=== PATIENT | female | born 1965 | race African-American/Black ===

== ENCOUNTER 2022-05-16 14:19 | Emergency (ER) | payer OTHER ==
--- OUTSIDE RECORDS SUMMARY | 2022-05-16 14:38 | XMS REPORT | Continuity of Care Document ---
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 2.5 mg, Uni vers (PROVENTIL) 04-13 Inhalation i ty of 2.5 mg /3 07:30: 07:39 , ONCE, 1 [place] mL (0.083 00 :00 dose, On Medica l %) [facility] nebulizer 02/11/22 at solution 0230, STAT 2.5 mg doxycycline 2021-04 Yes [id number] 100mg Take 1 [facility] hyclate 100 -03 capsule by it y of mg capsule 00:00: mouth in [place] 00 the Medical morning Branch and 1 capsule in the evening. doxycycline 2021-04 Yes [id number] 100mg Take 1 [facility] hyclate 100 1-03 capsule by it y of mg capsule 00:00: mouth in [place] 00 the Medical morning Branch and 1 capsule in the evening. doxycycline 2021-04 Yes [id number] 100mg Take 1 [facility] hyclate 100 -03 capsule by it y of mg capsule 00:00: mouth in [place] 00 the Medical morning Branch and 1 capsule in the evening. doxycycline 2021-04- No [id number] 100mg Take 1 [facility] hyclate 100 -03 05-13 capsule by i ty of mg capsule 00:00: 00:00 mouth in [place] 00 :00 the Medical morning Branch and 1 capsule in the evening. predniSONE 2021-04- No [id number] 40mg Take 2 [facility] 20 mg 04-13 tablets by ity of tablet 00:00: 05:59 mouth in [place] 00 :00 the Medical morning Branch for 5 days. busPIRone 2021-04 Yes [id number] 10mg Take 1 Un valentina 10 mg 0-26 tablet by ity of tablet 00:00: mouth in [place] 00 the Medical morning Branch and 1 tablet in the evening. benzonatate 2021-04 Yes [id number] 100mg Take 1 [facility] 100 mg 0-26 capsule by ity of capsule 00:00: mouth [place] 00 every 8 Medical (eight) Branch hours as needed for Cough. busPIRone 2021-04 Yes [id number] 10mg Take 1 Un valentina 10 mg 0-26 tablet by ity of tablet 00:00: mouth in [place] 00 the Medical morning Branch and 1 tablet in the evening. benzonatate 2021-04 Yes [id number] 100mg Take 1 [facility] 100 mg 0-26 capsule by ity of capsule 00:00: mouth [place] 00 every 8 Medical (eight) Branch hours as needed for Cough. busPIRone 2021-04 Yes [id number] 10mg Take 1 Un [place] 10 mg 0-26 tablet by ity of tablet 00:00: mouth in [place] 00 the Medical morning Branch and 1 tablet in the evening. benzonatate 2021-04 Yes [id number] 100mg Take 1 [facility] 100 mg 0-26 capsule by ity of capsule 00:00: mouth [place] 00 every 8 Medical (eight) Branch hours as needed for Cough. busPIRone 2021-04 Yes [id number] 10mg Take 1 Un val[place]ina 10 mg 0-26 tablet by ity of tablet 00:00: mouth in [place] 00 the Medical morning Branch and 1 tablet in the evening. benzonatate 2021-04 Yes [id number] 100mg Take 1 [facility] 100 mg 0-26 capsule by ity of capsule 00:00: mouth [place] 00 every 8 Medical (eight) Branch hours as needed for Cough. busPIRone 2021-04 Yes [id number] 10mg Take 1 Un val[place]ina 10 mg 0-26 tablet by ity of tablet 00:00: mouth in [place] 00 the Medical morning Branch and 1 tablet in the evening. benzonatate 2021-04 Yes [id number] 100mg Take 1 [facility] 100 mg 0-26 capsule by ity of capsule 00:00: mouth [place] 00 every 8 Medical (eight) Branch hours as needed for Cough. busPIRone 2021-04 Yes [id number] 10mg Take 1 Un val[place] 10 mg 0-26 tablet by ity of tablet 00:00: mouth in [place] 00 the Medical morning Branch and 1 tablet in the evening. benzonatate 2021-04 Yes [id number] 100mg Take 1 [facility] 100 mg 0-26 capsule by ity of capsule 00:00: mouth [place] 00 every 8 Medical (eight) Branch hours as needed for Cough. busPIRone 2021-04 Yes [id number] 10mg Take 1 Un val[place]ina 10 mg 0-26 tablet by ity of tablet 00:00: mouth in [place] 00 the Medical morning Branch and 1 tablet in the evening. benzonatate 2021-04 Yes [id number] 100mg Take 1 [facility] 100 mg 0-26 capsule by ity of capsule 00:00: mouth [place] 00 every 8 Medical (eight) Branch hours as needed for Cough. busPIRone 2021-04 Yes [id number] 10mg Take 1 Un val[place] 10 mg 0-26 tablet by ity of tablet 00:00: mouth in [place] 00 the Medical morning Branch and 1 tablet in the evening. benzonatate 2021-04 Yes [id number] 100mg Take 1 [facility] 100 mg 0-26 capsule by ity of capsule 00:00: mouth [place] 00 every 8 Medical (eight) Branch hours as needed for Cough. busPIRone 2021-04 Yes [id number] 10mg Take 1 Un val[place] 10 mg 0-26 tablet by ity of tablet 00:00: mouth in [place] 00 the Medical morning Branch and 1 tablet in the evening. benzonatate 2021-04 Yes [id number] 100mg Take 1 [facility] 100 mg 0-26 capsule by ity of capsule 00:00: mouth [place] 00 every 8 Medical (eight) Branch hours as needed for Cough. busPIRone 2021-04 Yes [id number] 10mg Take 1 Un valentina 10 mg 0-26 tablet by ity of tablet 00:00: mouth in [place] 00 the Medical morning Branch and 1 tablet in the evening. busPIRone 2021-04 Yes [id number] 10mg Take 1 Un val[place]ina 10 mg 0-26 tablet by ity of tablet 00:00: mouth in [place] 00 the Medical morning Branch and 1 tablet in the evening. busPIRone 2021-04 Yes [id number] 10mg Take 1 Un val[place]ina 10 mg 0-26 tablet by ity of tablet 00:00: mouth in [place] 00 the Medical morning Branch and 1 tablet in the evening. benzonatate 2021-04 Yes [id number] 100mg Take 1 [facility] 100 mg 0-26 capsule by ity of capsule 00:00: mouth [place] 00 every 8 Medical (eight) Branch hours as needed for Cough. busPIRone 2021-04 Yes [id number] 10mg Take 1 Un valentina 10 mg 0-26 tablet by ity of tablet 00:00: mouth in [place] 00 the Medical morning Branch and 1 tablet in the evening. benzonatate 2021-04 Yes [id number] 100mg Take 1 [facility] 100 mg 0-26 capsule by ity of capsule 00:00: mouth [place] 00 every 8 Medical (eight) Branch hours as needed for Cough. busPIRone 2021-04 Yes [id number] 10mg Take 1 Un val[place]ina 10 mg 0-26 tablet by ity of tablet 00:00: mouth in [place] 00 the Medical morning Branch and 1 tablet in the evening. benzonatate 2021-04 Yes [id number] 100mg Take 1 [facility] 100 mg 0-26 capsule by ity of capsule 00:00: mouth [place] 00 every 8 Medical (eight) Branch hours as needed for Cough. busPIRone 2021-04 Yes [id number] 10mg Take 1 Un valentina 10 mg 0-26 tablet by ity of tablet 00:00: mouth in [place] 00 the Medical morning Branch and 1 tablet in the evening. benzonatate 2021-04 Yes [id number] 100mg Take 1 [facility] 100 mg 0-26 capsule by ity of capsule 00:00: mouth [place] 00 every 8 Medical (eight) Branch hours as needed for Cough. benzonatate 2021-043- No [id number] 100mg Take 1 [facility] 100 mg 0-26 02-02 capsule by ity of capsule 00:00: 00:00 mouth [place] 00 :00 every 8 Medical (eight) Branch hours as needed for Cough. umeclidiniu 2021-04 Yes [id number] 1{puff} Inhale 1 Univers m (INCRUSE 0-17 Puff ity of ELLIPTA) 00:00: daily. [place] [address].5 00 Medical mcg/actuati Branch on DsDv albuterol 2021-04 Yes [id number] 2{puff} Inhale 2 Univers 90 0-17 Puffs ity of mcg/actuati 00:00: every 4 [place] on inhaler 00 (four) Medical hours as Branch needed for Wheezing or Shortness of Breath. umeclidiniu 2021-04 Yes [id number] 1{puff} Inhale 1 Univers m (INCRUSE 0-17 Puff ity of ELLIPTA) 00:00: daily. [place] 62.5 00 Medical mcg/actuati Branch on DsDv albuterol 2021-04 Yes [id number] 2{puff} Inhale 2 Univers 90 0-17 Puffs ity of mcg/actuati 00:00: every 4 [place] on inhaler 00 (four) Medical hours as Branch needed for Wheezing or Shortness of Breath. umeclidiniu 2021-04 Yes [id number] 1{puff} Inhale 1 Univers m (INCRUSE 0-17 Puff ity of ELLIPTA) 00:00: daily. [place] [address]. Medical mcg/actuati Branch on DsDv albuterol 2021-04 Yes [id number] 2{puff} Inhale 2 Univers 90 0-17 Puffs ity of mcg/actuati 00:00: every 4 [place] on inhaler 00 (four) Medical hours as Branch needed for Wheezing or Shortness of Breath. topheru 2021-04 Yes [id number] 1{puff} Inhale 1 Univers m (INCRUSE 0-17 Puff ity of ELLIPTA) 00:00: daily. [place] [address] Medical mcg/actuati Branch on DsDv albuterol 2021-04 Yes [id number] 2{puff} Inhale 2 Univers 90 0-17 Puffs ity of mcg/actuati 00:00: every 4 [place] on inhaler 00 (four) Medical hours as Branch needed for Wheezing or Shortness of Breath. janet 2021-04 Yes [id number] 1{puff} Inhale 1 Univers m (INCRUSE 0-17 Puff ity of ELLIPTA) 00:00: daily. [place] [address] Medical mcg/actuati Branch on DsDv albuterol 2021-04 Yes [id number] 2{puff} Inhale 2 Univers 90 0-17 Puffs ity of mcg/actuati 00:00: every 4 [place] on inhaler 00 (four) Medical hours as Branch needed for Wheezing or Shortness of Breath. janet 2021-04 Yes [id number] 1{puff} Inhale 1 Univers m (INCRUSE 0-17 Puff ity of ELLIPTA) 00:00: daily. [place] [address]. Medical mcg/actuati Branch on DsDv albuterol 2021-04 Yes [id number] 2{puff} Inhale 2 Univers 90 0-17 Puffs ity of mcg/actuati 00:00: every 4 [place] on inhaler 00 (four) Medical hours as Branch needed for Wheezing or Shortness of Breath. janet 2021-04 Yes [id number] 1{puff} Inhale 1 [facility] m (INCRUSE 0-17 Puff ity of ELLIPTA) 00:00: daily. [place] [address]. 00 Medical mcg/actuati Branch on DsDv albuterol 2021-04 Yes [id number] 2{puff} Inhale 2 Univers 90 0-17 Puffs ity of mcg/actuati 00:00: every 4 [place] on inhaler 00 (four) Medical hours as Branch needed for Wheezing or Shortness of Breath. umeclidiniu 2021-04 Yes [id number] 1{puff} Inhale 1 Univers m (INCRUSE 0-17 Puff ity of ELLIPTA) 00:00: daily. [place] [address]. 00 Medical mcg/actuati Branch on DsDv umeclidiniu 2021-04- No [id number] 1{puff} Inhale 1 Univers m (INCRUSE 0-17 02-02 Puff ity of ELLIPTA) 00:00: 00:00 daily. [place] [id number] 00 :00 Medical mcg/actuati Branch on DsDv albuterol 2021-04- No [id number] 2{puff} Inhale 2 Univers 90 0-17 01-13 Puffs ity of mcg/actuati 00:00: 00:00 every 4 [place] on inhaler 00 :00 (four) Medical hours as Branch needed for Wheezing or Shortness of Breath. doxycycline 2021-04- No [id number] 100mg Take 1 [facility] monohydrate 0-16 10-24 tablet by it y of 100 mg 00:00: 04:59 mouth in [place] tablet 00 :00 the Medical morning Branch and 1 tablet in the evening. Do all this for 7 days. doxycycline 2021-04- No [id number] 100mg Take 1 [facility] monohydrate 0-16 10-24 tablet by it y of 100 mg 00:00: 04:59 mouth in [place] tablet 00 :00 the Medical morning Branch and 1 tablet in the evening. Do all this for 7 days. doxycycline 2021-04 Yes [id number] 100mg Take 1 [facility] 100 mg EC 0-13 tablet by ity o f tablet 00:00: mouth in [place] 00 the Medical morning Branch and 1 tablet in the evening. budesonide- 2021-04 Yes [id number] 2{puff} Inhale 2 Univers formoteroL 0-13 Puffs in ity o f (SYMBICORT) 00:00: the 80-4.5 00 morning Medical mcg/actuati and 2 Branch on inhaler Puffs in the evening. INHALE 2 PUFFS BY MOUTH TWO TIMES A DAY tiotropium 2021-04 Yes [id number] 18ug Inhale 1 [facility] 18 mcg 0-13 capsule in ity of inhalation 00:00: the [place] morning. Medical Branch albuterol 2021-04 Yes [id number] 2{puff} Inhale 2 [facility] 90 0-13 Puffs ity of mcg/actuati 00:00: every 4 [place] on inhaler 00 (four) Medical hours as Branch needed for Wheezing or Shortness of Breath. budesonide- 2021-04 Yes [id number] 2{puff} Inhale 2 [facility] formoteroL 0-13 Puffs in ity o f (SYMBICORT) 00:00: the 80-4.5 00 morning Medical mcg/actuati and 2 Branch on inhaler Puffs in the evening. INHALE 2 PUFFS BY MOUTH TWO TIMES A DAY tiotropium 2021-04 Yes [id number] 18ug Inhale 1 [facility] 18 mcg 0-13 capsule in ity of inhalation 00:00: the [place] morning. Medical Branch budesonide- 2021-04 Yes [id number] 2{puff} Inhale 2 [facility] formoteroL 0-13 Puffs in ity o f (SYMBICORT) 00:00: the 80-4.5 00 morning Medical mcg/actuati and 2 Branch on inhaler Puffs in the evening. INHALE 2 PUFFS BY MOUTH TWO TIMES A DAY tiotropium 2021-04 Yes [id number] 18ug Inhale 1 Univers 18 mcg 0-13 capsule in ity of inhalation 00:00: the [place] 00 morning. Medical Branch budesonide- 2021-04 Yes [id number] 2{puff} Inhale 2 Univers formoteroL 0-13 Puffs in ity o f (SYMBICORT) 00:00: the 80-4.5 00 morning Medical mcg/actuati and 2 Branch on inhaler Puffs in the evening. INHALE 2 PUFFS BY MOUTH TWO TIMES A DAY budesonide- 2021-04 Yes [id number] 2{puff} Inhale 2 Univers formoteroL 0-13 Puffs in ity o f (SYMBICORT) 00:00: the [place] 80-4.5 00 morning Medical mcg/actuati and 2 Branch on inhaler Puffs in the evening. INHALE 2 PUFFS BY MOUTH TWO TIMES A DAY budesonide- 2021-04 Yes [id number] 2{puff} Inhale 2 [facility] formoteroL 0-13 Puffs in ity o f (SYMBICORT) 00:00: the [place] 80-4.5 00 morning Medical mcg/actuati and 2 Branch on inhaler Puffs in the evening. INHALE 2 PUFFS BY MOUTH TWO TIMES A DAY budesonide- 2021-04 Yes [id number] 2{puff} Inhale 2 [facility] formoteroL 0-13 Puffs in ity o f (SYMBICORT) 00:00: the [place] 80-4. 00 morning Medical mcg/actuati and 2 Branch on inhaler Puffs in the evening. INHALE 2 PUFFS BY MOUTH TWO TIMES A DAY budesonide- 2021-04 Yes [id number] 2{puff} Inhale 2 [facility] formoteroL 0-13 Puffs in ity o f (SYMBICORT) 00:00: the [place] 80-4. 00 morning Medical mcg/actuati and 2 Branch on inhaler Puffs in the evening. INHALE 2 PUFFS BY MOUTH TWO TIMES A DAY budesonide- 2021-04 Yes [id number] 2{puff} Inhale 2 [facility] formoteroL 0-13 Puffs in ity o f (SYMBICORT) 00:00: the [place] 80-4.5 00 morning Medical mcg/actuati and 2 Branch on inhaler Puffs in the evening. INHALE 2 PUFFS BY MOUTH TWO TIMES A DAY doxycycline 2021-04 Yes [id number] 100mg Take 1 [facility] 100 mg EC 0-13 tablet by ity o f tablet 00:00: mouth in [place] 00 the Medical morning Branch and 1 tablet in the evening. budesonide- 2021-04 Yes [id number] 2{puff} Inhale 2 [facility] formoteroL 0-13 Puffs in ity o f (SYMBICORT) 00:00: the [place] 80-4.5 00 morning Medical mcg/actuati and 2 Branch on inhaler Puffs in the evening. INHALE 2 PUFFS BY MOUTH TWO TIMES A DAY tiotropium 2021-04 Yes [id number] 18ug Inhale 1 [facility] 18 mcg 0-13 capsule in ity of inhalation 00:00: the [place] 00 morning. Medical Branch albuterol 2021-04 Yes [id number] 2{puff} Inhale 2 [facility] 90 0-13 Puffs ity of mcg/actuati 00:00: every 4 [place] on inhaler 00 (four) Medical hours as Branch needed for Wheezing or Shortness of Breath. budesonide- 2021-04- No [id number] 2{puff} Inhale 2 [facility] formoteroL 0-13 02-02 Puffs in ity of (SYMBICORT) 00:00: 00:00 the [place] 80-4.5 00 :00 morning Medical mcg/actuati and 2 Branch on inhaler Puffs in the evening. INHALE 2 PUFFS BY MOUTH TWO TIMES A DAY tiotropium 2021-04- No [id number] 18ug Inhale 1 [facility] 18 mcg 0-13 10-26 capsule in ity of inhalation 00:00: 00:00 the [place] 00 :00 morning. Medical Branch tiotropium 2021-04- No [id number] 18ug Inhale 1 [facility] 18 mcg 0-13 10-26 capsule in ity of inhalation 00:00: 00:00 the [place] 00 :00 morning. Medical Branch predniSONE 2021-04- No [id number] 40mg Take 2 [facility] 20 mg 0-13 10-19 tablets by ity of tablet 00:00: 04:59 mouth in [place] 00 :00 the Medical morning Branch for 5 days. predniSONE 2021-04- No [id number] 40mg Take 2 [facility] 20 mg 0-13 10-19 tablets by ity of tablet 00:00: 04:59 mouth in [place] 00 :00 the Medical morning Branch for 5 days. predniSONE 2021-04- No [id number] 40mg Take 2 [facility] 20 mg 0-13 10-19 tablets by ity of tablet 00:00: 04:59 mouth in [place] 00 :00 the Medical morning Branch for 5 days. predniSONE 2021-04- No [id number] 40mg Take 2 [facility] 20 mg 0-13 10-19 tablets by ity of tablet 00:00: 04:59 mouth in [place] 00 :00 the Medical morning Branch for 5 days. albuterol 2021-04- No [id number] 2{puff} Inhale 2 [facility] 90 0-13 10-17 Puffs ity of mcg/actuati 00:00: 00:00 every 4 [place] on inhaler 00 :00 (four) Medical hours as Branch needed for Wheezing or Shortness of Breath. albuterol 2021-04- No [id number] 2{puff} Inhale 2 [facility] 90 0-13 10-17 Puffs ity of mcg/actuati 00:00: 00:00 every 4 [place] on inhaler 00 :00 (four) Medical hours as Branch needed for Wheezing or Shortness of Breath. doxycycline 2021-04- No [id number] 100mg Take 1 [facility] 100 mg EC 0-13 10-16 tablet by ity of tablet 00:00: 00:00 mouth in [place] 00 :00 the Medical morning Branch and 1 tablet in the evening. doxycycline 2021-04- No [id number] 100mg Take 1 [facility] 100 mg EC 0-13 10-16 tablet by ity of tablet 00:00: 00:00 mouth in [place] 00 :00 the Medical morning Branch and 1 tablet in the evening. SYMBICORT 2021-04 Yes [id number] INHALE 2 [facility] 80-4.5 0-12 PUFFS BY ity of mcg/actuati 00:00: MOUTH TWO [place] on inhaler 00 TIMES A Medica l DAY Branch SYMBICORT 2021-04- No [id number] INHALE 2 [facility] 80-4.5 0-12 10-13 PUFFS BY ity of mcg/actuati 00:00: 00:00 MOUTH TWO [place] on inhaler 00 :00 TIMES A Medica l DAY Branch SYMBICORT 2021-04- No [id number] INHALE 2 [facility] 80-4.5 0-12 10-13 PUFFS BY ity of mcg/actuati 00:00: 00:00 MOUTH TWO [place] on inhaler 00 :00 TIMES A Medica l DAY Branch citalopram Yes [id number] 40mg Take 1 U nivers 40 mg 9-27 tablet by ity of tablet 00:00: mouth in [place] the Medical morning. Branch montelukast 0 Yes [id number] 10mg Take 1 [facility] 10 mg 9-27 tablet by ity of tablet 00:00: mouth at [place] 00 bedtime. Medical Branch methylPREDN 2021-0 Yes [id number] Take by Univers ISolone 9-27 mouth ity of (MEDROL, 00:00: SEE-INSTRU [place] PERRY,) 4 mg 00 CTIONS. Medica l tablets follow Branch package directions citalopram 0 Yes [id number] 40mg Take 1 U nivers 40 mg 9-27 tablet by ity of tablet 00:00: mouth in [place] the Medical morning. Branch montelukast 0 Yes [id number] 10mg Take 1 [facility] 10 mg 9-27 tablet by ity of tablet 00:00: mouth at [place] 00 bedtime. Medical Branch methylPREDN 0 Yes [id number] Take by Univers ISolone 9-27 mouth ity of (MEDROL, 00:00: SEE-INSTRU [place] PERRY,) 4 mg 00 CTIONS. Medica l tablets follow Branch package directions citalopram 0 Yes [id number] 40mg Take 1 U nivers 40 mg 9-27 tablet by ity of tablet 00:00: mouth in [place] the Medical morning. Branch montelukast 0 Yes [id number] 10mg Take 1 [facility] 10 mg 9-27 tablet by ity of tablet 00:00: mouth at [place] 00 bedtime. Medical Branch methylPREDN 2021-0 Yes [id number] Take by Univers ISolone 9-27 mouth ity of (MEDROL, 00:00: SEE-INSTRU [place] PERRY,) 4 mg 00 CTIONS. Medica l tablets follow Branch package directions citalopram 0 Yes [id number] 40mg Take 1 U nivers 40 mg 9-27 tablet by ity of tablet 00:00: mouth in [place] 00 the Medical morning. Branch montelukast 2021-0 Yes [id number] 10mg Take 1 [facility] 10 mg 9-27 tablet by ity of tablet 00:00: mouth at [place] 00 bedtime. Medical Branch methylPREDN 2021-0 Yes [id number] Take by [facility] ISolone 9-27 mouth ity of (MEDROL, 00:00: SEE-INSTRU [place] PERRY,) 4 mg 00 CTIONS. Medica l tablets follow Branch package directions citalopram Yes [id number] 40mg Take 1 U nivers 40 mg 9-27 tablet by ity of tablet 00:00: mouth in [place] 00 the Medical morning. Branch montelukast Yes [id number] 10mg Take 1 [facility] 10 mg 9-27 tablet by ity of tablet 00:00: mouth at [place] 00 bedtime. Medical Branch methylPREDN 0 Yes [id number] Take by Univers ISolone 9-27 mouth ity of (MEDROL, 00:00: SEE-INSTRU [place] PERRY,) 4 mg 00 CTIONS. Medica l tablets follow Branch package directions citalopram Yes [id number] 40mg Take 1 U nivers 40 mg 9-27 tablet by ity of tablet 00:00: mouth in [place] 00 the Medical morning. Branch montelukast Yes [id number] 10mg Take 1 [facility] 10 mg 9-27 tablet by ity of tablet 00:00: mouth at [place] 00 bedtime. Medical Branch methylPREDN 0 Yes [id number] Take by Univers ISolone 9-27 mouth ity of (MEDROL, 00:00: SEE-INSTRU [place] PERRY,) 4 mg 00 CTIONS. Medica l tablets follow Branch package directions citalopram Yes [id number] 40mg Take 1 U nivers 40 mg 9-27 tablet by ity of tablet 00:00: mouth in [place] 00 the Medical morning. Branch montelukast Yes [id number] 10mg Take 1 [facility] 10 mg 9-27 tablet by ity of tablet 00:00: mouth at [place] 00 bedtime. Medical Branch methylPREDN 0 Yes [id number] Take by [facility] ISolone 9-27 mouth ity of (MEDROL, 00:00: SEE-INSTRU [place] PERRY,) 4 mg 00 CTIONS. Medica l tablets follow Branch package directions citalopram Yes [id number] 40mg Take 1 U nivers 40 mg 9-27 tablet by ity of tablet 00:00: mouth in [place] 00 the Medical morning. Branch montelukast Yes [id number] 10mg Take 1 [facility] 10 mg 9-27 tablet by ity of tablet 00:00: mouth at [place] 00 bedtime. Medical Branch methylPREDN 2021-0 Yes [id number] Take by [facility] ISolone 9-27 mouth ity of (MEDROL, 00:00: SEE-INSTRU [place] PERRY,) 4 mg 00 CTIONS. Medica l tablets follow Branch package directions citalopram Yes [id number] 40mg Take 1 U nivers 40 mg 9-27 tablet by ity of tablet 00:00: mouth in [place] 00 the Medical morning. Branch montelukast Yes [id number] 10mg Take 1 [facility] 10 mg 9-27 tablet by ity of tablet 00:00: mouth at [place] 00 bedtime. Medical Branch methylPREDN Yes [id number] Take by Univers ISolone 9-27 mouth ity of (MEDROL, 00:00: SEE-INSTRU [place] PERRY,) 4 mg 00 CTIONS. Medica l tablets follow Branch package directions citalopram Yes [id number] 40mg Take 1 U nivers 40 mg 9-27 tablet by ity of tablet 00:00: mouth in [place] 00 the Medical morning. Branch citalopram Yes [id number] 40mg Take 1 U nivers 40 mg 9-27 tablet by ity of tablet 00:00: mouth in [place] 00 the Medical morning. Branch citalopram Yes [id number] 40mg Take 1 U nivers 40 mg 9-27 tablet by ity of tablet 00:00: mouth in [place] 00 the Medical morning. Branch montelukast 0 Yes [id number] 10mg Take 1 [facility] 10 mg 9-27 tablet by ity of tablet 00:00: mouth at [place] 00 bedtime. Medical Branch methylPREDN 2021-0 Yes [id number] Take by [facility] ISolone 9-27 mouth ity of (MEDROL, 00:00: SEE-INSTRU [place] PERRY,) 4 mg 00 CTIONS. Medica l tablets follow Branch package directions citalopram Yes [id number] 40mg Take 1 U nivers 40 mg 9-27 tablet by ity of tablet 00:00: mouth in [place] 00 the Medical morning. Branch montelukast 2021-0 Yes [id number] 10mg Take 1 [facility] 10 mg 9-27 tablet by ity of tablet 00:00: mouth at [place] 00 bedtime. Medical Branch methylPREDN 0 Yes [id number] Take by [facility] ISolone 9-27 mouth ity of (MEDROL, 00:00: SEE-INSTRU [place] PERRY,) 4 mg 00 CTIONS. Medica l tablets follow Branch package directions citalopram Yes [id number] 40mg Take 1 U nivers 40 mg 9-27 tablet by ity of tablet 00:00: mouth in [place] 00 the Medical morning. Branch montelukast Yes [id number] 10mg Take 1 [facility] 10 mg 9-27 tablet by ity of tablet 00:00: mouth at [place] 00 bedtime. Medical Branch methylPREDN Yes [id number] Take by [facility] ISolone 9-27 mouth ity of (MEDROL, 00:00: SEE-INSTRU [place] PERRY,) 4 mg 00 CTIONS. Medica l tablets follow Branch package directions citalopram Yes [id number] 40mg Take 1 U nivers 40 mg 9-27 tablet by ity of tablet 00:00: mouth in [place] 00 the Medical morning. Branch montelukast Yes [id number] 10mg Take 1 [facility] 10 mg 9-27 tablet by ity of tablet 00:00: mouth at [place] 00 bedtime. Medical Branch methylPREDN Yes [id number] Take by [facility] ISolone 927 mouth ity of (MEDROL, 00:00: SEE-INSTRU [place] PERRY,) 4 mg 00 CTIONS. Medica l tablets follow Branch package directions montelukast 2022- No [id number] 10mg Take 1 [facility] 10 mg 9-27 - tablet by ity of tablet 00:00: 00:00 mouth at [place] 00 :00 bedtime. Medical Branch methylPREDN 2022- No [id number] Take by [facility] ISolone 9-27 -02 mouth ity of (MEDROL, 00:00: 00:00 [place]-INSTRU [place] PERRY,) 4 mg 00 :00 CTIONS. Medica l tablets follow Branch package directions doxycycline 2021- No [id number] 100mg Take 1 [facility] hyclate 100 9-27 10-08 tablet by it y of mg tablet 00:00: 04:59 mouth in [place] 00 :00 the Medical morning Branch and 1 tablet in the evening. Do all this for 10 days. doxycycline 0 2021- No [id number] 100mg Take 1 [facility] hyclate 100 9-27 10-08 tablet by it y of mg tablet 00:00: 04:59 mouth in [place] 00 :00 the Medical morning Branch and 1 tablet in the evening. Do all this for 10 days. BUSPIRONE 0 Yes [id number] Take 1 [facility] [place] 10 mg 9-26 tablet by ity of tablet 00:00: mouth [place] 00 twice Medical daily Branch BUSPIRONE 2021-0 2021- No [id number] Take 1 U nivers 10 mg 9-26 09-27 tablet by ity of tablet 00:00: 00:00 mouth [place] 00 :00 twice Medical daily Branch BUSPIRONE 2021-0 2021- No [id number] Take 1 [facility] nivers 10 mg 9-26 09-27 tablet by ity of tablet 00:00: 00:00 mouth [place] 00 :00 twice Medical daily Branch BENZONATATE 2021-0 Yes [id number] Take 1 [facility] 100 mg 9-23 capsule by ity of capsule 00:00: mouth [place] 00 three Medical times Branch daily as needed for cough ergocalcife 2021-0 Yes [id number] Take 1 [facility] rol, 9-23 capsule by ity of vitamin d2, 00:00: mouth [place] 1,250 mcg 00 weekly. Medical (50,000 Branch unit) capsule BENZONATATE 2021-0 Yes [id number] Take 1 [facility] 100 mg 9-23 capsule by ity of capsule 00:00: mouth [place] 00 three Medical times Branch daily as needed for cough ergocalcife 2021-0 Yes [id number] Take 1 [facility] rol, 9-23 capsule by ity of vitamin d2, 00:00: mouth [place] 1,250 mcg 00 weekly. Medical (50,000 Branch unit) capsule BENZONATATE 2021-0 2021- No [id number] Take 1 [facility] 100 mg 9-23 09-27 capsule by ity of capsule 00:00: 00:00 mouth [place] 00 :00 three Medical times Branch daily as needed for cough ergocalcife 2021- No [id number] Take 1 [facility] rol, 01-01 capsule by ity of vitamin d2, 00:00: 00:00 mouth [place] 1,250 mcg 00 :00 weekly. Medical (50,000 Branch unit) capsule BENZONATATE 2021- No [id number] Take 1 [facility] 100 mg 01-01 capsule by ity of capsule 00:00: 00:00 mouth [place] 00 :00 three Medical times Branch daily as needed for cough ergocalcife 2021- No [id number] Take 1 [facility] rol, 01-01 capsule by ity of vitamin d2, 00:00: 00:00 mouth [place] 1,250 mcg 00 :00 weekly. Medical (50,000 Branch unit) capsule albuterol Yes [id number] 2{puff} Inhale 2 [facility] 90 9-12 Puffs ity of mcg/actuati 00:00: every 4 [place] on inhaler 00 (four) Medical hours as Branch needed for Wheezing or Shortness of Breath. albuterol Yes [id number] 2{puff} Inhale 2 [facility] 90 9-12 Puffs ity of mcg/actuati 00:00: every 4 [place] on inhaler 00 (four) Medical hours as Branch needed for Wheezing or Shortness of Breath. albuterol Yes [id number] 2{puff} Inhale 2 [facility] 90 9-12 Puffs ity of mcg/actuati 00:00: every 4 [place] on inhaler 00 (four) Medical hours as Branch needed for Wheezing or Shortness of Breath. albuterol Yes [id number] 2{puff} Inhale 2 [facility] 90 9-12 Puffs ity of mcg/actuati 00:00: every 4 [place] on inhaler 00 (four) Medical hours as Branch needed for Wheezing or Shortness of Breath. albuterol Yes [id number] 2{puff} Inhale 2 [facility] 90 9-12 Puffs ity of mcg/actuati 00:00: every 4 [place] on inhaler 00 (four) Medical hours as Branch needed for Wheezing or Shortness of Breath. albuterol Yes [id number] 2{puff} Inhale 2 [facility] 90 9-12 Puffs ity of mcg/actuati 00:00: every 4 [place] on inhaler 00 (four) Medical hours as Branch needed for Wheezing or Shortness of Breath. albuterol 2021-0 Yes [id number] 2{puff} Inhale 2 [facility] 90 9-12 Puffs ity of mcg/actuati 00:00: every 4 [place] on inhaler 00 (four) Medical hours as Branch needed for Wheezing or Shortness of Breath. albuterol 0 2021- No [id number] 2{puff} Inhale 2 [facility] 90 9-12 10-13 Puffs ity of mcg/actuati 00:00: 00:00 every 4 [place] inhaler 00 :00 (four) Medical hours as Branch needed for Wheezing or Shortness of Breath. albuterol 0 2021- No [id number] 2{puff} Inhale 2 [facility] 90 9-12 10-13 Puffs ity of mcg/actuati 00:00: 00:00 every 4 [place] inhaler 00 :00 (four) Medical hours as Branch needed for Wheezing or Shortness of Breath. ipratropium 2021-0 Yes [id number] 3mL Inhale 3 [facility] -albuteroL 8-18 mL every 4 ity of 0.5 mg-3 00:00: (four) [place] mg(2.5 mg 00 hours as Medica l base)/3 mL needed for Bra nch nebulizer Wheezing solution or Shortness of Breath. ipratropium 2021-0 Yes [id number] 3mL Inhale 3 [facility] -albuteroL 8-18 mL every 4 ity of 0.5 mg-3 00:00: (four) [place] mg(2.5 mg 00 hours as Medica l base)/3 mL needed for Bra n[facility] nebulizer Wheezing solution or Shortness of Breath. ipratropium 2021-0 Yes [id number] 3mL Inhale 3 [facility] -albuteroL 8-18 mL every 4 ity of 0.5 mg-3 00:00: (four) [place] mg(2.5 mg 00 hours as Medica l base)/3 mL needed for Bra nch nebulizer Wheezing solution or Shortness of Breath. ipratropium 2021-0 Yes [id number] 3mL Inhale 3 [facility] -albuteroL 8-18 mL every 4 ity of 0.5 mg-3 00:00: (four) [place] mg(2.5 mg 00 hours as Medica l base)/3 mL needed for Bra nch nebulizer Wheezing solution or Shortness of Breath. ipratropium 2022-0 Yes [id number] 3mL Inhale 3 [facility] -albuteroL 8-18 mL every 4 ity of 0.5 mg-3 00:00: (four) [place] mg(2.5 mg 00 hours as Medica l base)/3 mL needed for Bra n[facility] nebulizer Wheezing solution or Shortness of Breath. ipratropium 2022-0 Yes [id number] 3mL Inhale 3 [facility] -albuteroL 8-18 mL every 4 ity of 0.5 mg-3 00:00: (four) [place] mg(2.5 mg 00 hours as Medica l base)/3 mL needed for Bra nch nebulizer Wheezing solution or Shortness of Breath. ipratropium 2022-0 Yes [id number] 3mL Inhale 3 [facility] -albuteroL 8-18 mL every 4 ity of 0.5 mg-3 00:00: (four) [place] mg(2.5 mg 00 hours as Medica l base)/3 mL needed for Bra nch nebulizer Wheezing solution or Shortness of Breath. ipratropium 2022-0 Yes [id number] 3mL Inhale 3 [facility] -albuteroL 8-18 mL every 4 ity of 0.5 mg-3 00:00: (four) [place] mg(2.5 mg 00 hours as Medica l base)/3 mL needed for Bra nch nebulizer Wheezing solution or Shortness of Breath. ipratropium 2022-0 Yes [id number] 3mL Inhale 3 [facility] -albuteroL 8-18 mL every 4 ity of 0.5 mg-3 00:00: (four) [place] mg(2.5 mg 00 hours as Medica l base)/3 mL needed for Bra n[facility] nebulizer Wheezing solution or Shortness of Breath. BENZONATATE 2-0 Yes [id number] Take 1 [facility] 100 mg 8-18 capsule by ity of capsule 00:00: mouth [place] 00 three Medical times Branch daily as needed for cough ipratropium 2022-0 Yes [id number] 3mL Inhale 3 [facility] -albuteroL 8-18 mL every 4 ity of 0.5 mg-3 00:00: (four) [place] mg(2.5 mg 00 hours as Medica l base)/3 mL needed for Bra nch nebulizer Wheezing solution or Shortness of Breath. ipratropium 2022-0 Yes [id number] 3mL Inhale 3 [facility] -albuteroL 8-18 mL every 4 ity of 0.5 mg-3 00:00: (four) [place] mg(2.5 mg 00 hours as Medica l base)/3 mL needed for Bra nch nebulizer Wheezing solution or Shortness of Breath. ipratropium 2022-0 Yes [id number] 3mL Inhale 3 [facility] -albuteroL 8-18 mL every 4 ity of 0.5 mg-3 00:00: (four) [place] mg(2.5 mg 00 hours as Medica l base)/3 mL needed for Bra nch nebulizer Wheezing solution or Shortness of Breath. ipratropium 2022-0 Yes [id number] 3mL Inhale 3 [facility] -albuteroL 8-18 mL every 4 ity of 0.5 mg-3 00:00: (four) [place] mg(2.5 mg 00 hours as Medica l base)/3 mL needed for Bra nch nebulizer Wheezing solution or Shortness of Breath. ipratropium 2022-0 Yes [id number] 3mL Inhale 3 [facility] -albuteroL 8-18 mL every 4 ity of 0.5 mg-3 00:00: (four) [place] mg(2.5 mg 00 hours as Medica l base)/3 mL needed for Bra nch nebulizer Wheezing solution or Shortness of Breath. ipratropium 2022-0 Yes [id number] 3mL Inhale 3 [facility] -albuteroL 8-18 mL every 4 ity of 0.5 mg-3 00:00: (four) [place] mg(2.5 mg 00 hours as Medica l base)/3 mL needed for Bra nch nebulizer Wheezing solution or Shortness of Breath. ipratropium 2022-0 Yes [id number] 3mL Inhale 3 [facility] -albuteroL 8-18 mL every 4 ity of 0.5 mg-3 00:00: (four) [place] mg(2.5 mg 00 hours as Medica l base)/3 mL needed for Bra nch nebulizer Wheezing solution or Shortness of Breath. ipratropium 2-0 Yes [id number] 3mL Inhale 3 [facility] -albuteroL 8-18 mL every 4 ity of 0.5 mg-3 00:00: (four) [place] mg(2.5 mg 00 hours as Medica l base)/3 mL needed for Bra nch nebulizer Wheezing solution or Shortness of Breath. ipratropium 2021-0 Yes [id number] 3mL Inhale 3 [facility] -albuteroL 8-18 mL every 4 ity of 0.5 mg-3 00:00: (four) [place] mg(2.5 mg 00 hours as Medica l base)/3 mL needed for Bra nch nebulizer Wheezing solution or Shortness of Breath. ipratropium 2021-0 3- No [id number] 3mL Inhale 3 [facility] -albuteroL 8-18 02-02 mL every 4 it y of 0.5 mg-3 00:00: 00:00 (four) [place] mg(2.5 mg 00 :00 hours as Medica l base)/3 mL needed for Bra nch nebulizer Wheezing solution or Shortness of Breath. BENZONATATE 2021-0 2021- No [id number] Take 1 [facility] 100 mg 8-18 -23 capsule by ity of capsule 00:00: 00:00 mouth [place] 00 :00 three Medical times Branch daily as needed for cough BENZONATATE 2021-0 2021- No [id number] Take 1 [facility] 100 mg 8-18 09-23 capsule by ity of capsule 00:00: 00:00 mouth [place] 00 :00 three Medical times Branch daily as needed for cough citalopram 2021-0 Yes [id number] 40mg Take 1 [facility] 40 mg 8-04 tablet by ity of tablet 00:00: mouth in [place] 00 the Medical morning. Branch Appointmen t needed for further refills citalopram 2021-0 Yes [id number] 40mg Take 1 [facility] n[facility] 40 mg 8-04 tablet by ity of tablet 00:00: mouth in [place] 00 the Medical morning. Branch Appointmen t needed for further refills albuterol 2021-0 Yes [id number] 2{puff} Inhale 2 [facility] 90 8-04 Puffs ity of mcg/actuati 00:00: every 4 [place] on inhaler 00 (four) Medical hours as Branch needed for Wheezing or Shortness of Breath. citalopram 0 Yes [id number] 40mg Take 1 [facility] n[facility] 40 mg 8-04 tablet by ity of tablet 00:00: mouth in [place] 00 the Medical morning. Branch Appointmen t needed for further refills albuterol 0 Yes [id number] 2{puff} Inhale 2 [facility] 90 8-04 Puffs ity of mcg/actuati 00:00: every 4 [place] on inhaler 00 (four) Medical hours as Branch needed for Wheezing or Shortness of Breath. citalopram 0 Yes [id number] 40mg Take 1 [facility] n[facility] 40 mg 8-04 tablet by ity of tablet 00:00: mouth in [place] 00 the Medical morning. Branch Appointmen t needed for further refills citalopram 0 Yes [id number] 40mg Take 1 [facility] 40 mg 8-04 tablet by ity of tablet 00:00: mouth in [place] 00 the Medical morning. Branch Appointmen t needed for further refills citalopram 0 Yes [id number] 40mg Take 1 [facility] 40 mg 8-04 tablet by ity of tablet 00:00: mouth in [place] 00 the Medical morning. Branch Appointmen t needed for further refills citalopram 0 2021- No [id number] 40mg Take 1 [facility] 40 mg 8-04 09-27 tablet by ity of tablet 00:00: 00:00 mouth in [place] 00 :00 the Medical morning. Branch Appointmen t needed for further refills citalopram 0 2021- No [id number] 40mg Take 1 [facility] 40 mg 8-04 09-27 tablet by ity of tablet 00:00: 00:00 mouth in [place] 00 :00 the Medical morning. Branch Appointmen t needed for further refills albuterol 0 2021- No [id number] 2{puff} Inhale 2 [facility] 90 8-04 09-12 Puffs ity of mcg/actuati 00:00: 00:00 every 4 [place] on inhaler 00 :00 (four) Medical hours as Branch needed for Wheezing or Shortness of Breath. ERGOCALCIFE 2022-0 Yes [id number] Take 1 [facility] ROL, 7-26 capsule by ity of VITAMIN D2, 00:00: mouth once [place] 1,250 mcg 00 a week Medical (50,000 Branch unit) capsule ERGOCALCIFE 2-0 Yes [id number] Take 1 [facility] ROL, 7-26 capsule by ity of VITAMIN D2, 00:00: mouth once [place] 1,250 mcg 00 a week Medical (50,000 Branch unit) capsule ERGOCALCIFE 2021-0 Yes [id number] Take 1 [facility] ROL, 7-26 capsule by ity of VITAMIN D2, 00:00: mouth once [place] 1,250 mcg 00 a week Medical (50,000 Branch unit) capsule ERGOCALCIFE 2021-0 Yes [id number] Take 1 [facility] ROL, 7-26 capsule by ity of VITAMIN D2, 00:00: mouth once [place] 1,250 mcg 00 a week Medical (50,000 Branch unit) capsule ERGOCALCIFE 2021-0 Yes [id number] Take 1 [facility] ROL, 7-26 capsule by ity of VITAMIN D2, 00:00: mouth once [place] 1,250 mcg 00 a week Medical (50,000 Branch unit) capsule ERGOCALCIFE 2021-0 2022- No [id number] Take 1 [facility] ROL, 7-26 -23 capsule by ity of VITAMIN D2, 00:00: 00:00 mouth once [place] 1,250 mcg 00 :00 a week Medical (50,000 Branch unit) capsule ERGOCALCIFE 2021-0 2022- No [id number] Take 1 [facility] ROL, 7-26 -23 capsule by ity of VITAMIN D2, 00:00: 00:00 mouth once [place] 1,250 mcg 00 :00 a week Medical (50,000 Branch unit) capsule benzonatate 0 Yes Take 1 [facility] ers 100 mg 7-21 capsule by ity of capsule 00:00: mouth [place] 00 three Medical times Branch daily as needed for cough albuterol 0 Yes [id number] 2{puff} Inhale 2 [facility] 90 7-21 Puffs ity of mcg/actuati 00:00: every 4 [place] on inhaler 00 (four) Medical hours as Branch needed for Wheezing or Shortness of Breath. benzonatate 2022-0 Yes Take 1 [facility] ers 100 mg 7-21 capsule by ity of capsule 00:00: mouth [place] 00 three Medical times Branch daily as needed for cough albuterol 2021-0 Yes [id number] 2{puff} Inhale 2 [facility] 90 7-21 Puffs ity of mcg/actuati 00:00: every 4 [place] on inhaler 00 (four) Medical hours as Branch needed for Wheezing or Shortness of Breath. benzonatate Yes Take 1 [facility] ers 100 mg 7-21 capsule by ity of capsule 00:00: mouth [place] 00 three Medical times Branch daily as needed for cough albuterol 0 Yes [id number] 2{puff} Inhale 2 [facility] 90 7-21 Puffs ity of mcg/actuati 00:00: every 4 [place] on inhaler 00 (four) Medical hours as Branch needed for Wheezing or Shortness of Breath. benzonatate Yes Take 1 [facility] ers 100 mg 7-21 capsule by ity of capsule 00:00: mouth [place] 00 three Medical times Branch daily as needed for cough albuterol 0 Yes [id number] 2{puff} Inhale 2 [facility] 90 7-21 Puffs ity of mcg/actuati 00:00: every 4 [place] on inhaler 00 (four) Medical hours as Branch needed for Wheezing or Shortness of Breath. benzonatate Yes Take 1 [facility] ers 100 mg 7-21 capsule by ity of capsule 00:00: mouth [place] 00 three Medical times Branch daily as needed for cough albuterol 0 Yes [id number] 2{puff} Inhale 2 [facility] 90 7-21 Puffs ity of mcg/actuati 00:00: every 4 [place] on inhaler 00 (four) Medical hours as Branch needed for Wheezing or Shortness of Breath. benzonatate Yes Take 1 [facility] ers 100 mg 7-21 capsule by ity of capsule 00:00: mouth [place] 00 three Medical times Branch daily as needed for cough benzonatate 0 2021- No Take 1 [facility] vers 100 mg 7-21 08-18 capsule by ity of capsule 00:00: 00:00 mouth [place] 00 :00 three Medical times Branch daily as needed for cough albuterol 2021- No [id number] 2{puff} Inhale 2 [facility] 90 7-21 08-04 Puffs ity of mcg/actuati 00:00: 00:00 every 4 [place] inhaler 00 :00 (four) Medical hours as Branch needed for Wheezing or Shortness of Breath. BIKTARVY 0 Yes [id number] TAKE ONE [facility] 50-200-25 7-18 TABLET BY ity o f mg tablet 00:00: MOUTH [place] 00 EVERY DAY Medical Branch BIKTARVY 0 Yes [id number] TAKE ONE [facility] 50-200-25 7-18 TABLET BY ity o f mg tablet 00:00: MOUTH [place] 00 EVERY DAY Medical Branch BIKTARVY 0 Yes [id number] TAKE ONE [facility] 50-200-25 7-18 TABLET BY ity o f mg tablet 00:00: MOUTH [place] 00 EVERY DAY Medical Branch BIKTARVY 0 Yes [id number] TAKE ONE [facility] 50-200-25 7-18 TABLET BY ity o f mg tablet 00:00: MOUTH [place] 00 EVERY DAY Medical Branch BIKTARVY 2021-0 Yes [id number] TAKE ONE [facility] 50-200-25 7-18 TABLET BY ity o f mg tablet 00:00: MOUTH [place] 00 EVERY DAY Medical Branch BIKTARVY 0 Yes [id number] TAKE ONE [facility] 50-200-25 7-18 TABLET BY ity o f mg tablet 00:00: MOUTH [place] 00 EVERY DAY Medical Branch BIKTARVY 0 Yes [id number] TAKE ONE [facility] 50-200-25 7-18 TABLET BY ity o f mg tablet 00:00: MOUTH [place] 00 EVERY DAY Medical Branch BIKTARVY 2021-0 Yes [id number] TAKE ONE [facility] 50-200-25 7-18 TABLET BY ity o f mg tablet 00:00: MOUTH [place] 00 EVERY DAY Medical Branch BIKTARVY 2021-0 Yes [id number] TAKE ONE [facility] 50-200-25 7-18 TABLET BY ity o f mg tablet 00:00: MOUTH [place] 00 EVERY DAY Medical Branch BIKTARVY 2021-0 Yes [id number] TAKE ONE [facility] 50-200-25 7-18 TABLET BY ity o f mg tablet 00:00: MOUTH [place] 00 EVERY DAY Medical Branch BIKTARVY 0 Yes [id number] TAKE ONE [facility] 50-200-25 7-18 TABLET BY ity o f mg tablet 00:00: MOUTH [place] 00 EVERY DAY Medical Branch [facility] 0 Yes [id number] TAKE ONE [facility] 50-200-25 7-18 TABLET BY ity o f mg tablet 00:00: MOUTH [place] EVERY DAY Medical Branch [facility] 0 Yes [id number] TAKE ONE [facility] 50-200-25 7-18 TABLET BY ity o f mg tablet 00:00: MOUTH [place] 00 EVERY DAY Medical Branch [facility] 0 Yes [id number] TAKE ONE [facility] 50-200-25 7-18 TABLET BY ity o f mg tablet 00:00: MOUTH [place] 00 EVERY DAY Medical Branch [facility] Yes [id number] TAKE ONE [facility] 50-200-25 7-18 TABLET BY ity o f mg tablet 00:00: MOUTH [place] 00 EVERY DAY Medical Branch [facility] 0 Yes [id number] TAKE ONE [facility] 50-200-25 7-18 TABLET BY ity o f mg tablet 00:00: MOUTH [place] 00 EVERY DAY Medical Branch [facility] 0 Yes [id number] TAKE ONE [facility] 50-200-25 7-18 TABLET BY ity o f mg tablet 00:00: MOUTH [place] 00 EVERY DAY Medical Branch [facility] 0 Yes [id number] TAKE ONE [facility] 50-200-25 7-18 TABLET BY ity o f mg tablet 00:00: MOUTH [place] 00 EVERY DAY Medical Branch [facility] 0 Yes [id number] TAKE ONE [facility] 50-200-25 7-18 TABLET BY ity o f mg tablet 00:00: MOUTH [place] 00 EVERY DAY Medical Branch [facility] 0 Yes [id number] TAKE ONE [facility] 50-200-25 7-18 TABLET BY ity o f mg tablet 00:00: MOUTH [place] 00 EVERY DAY Medical Branch [facility] 0 Yes [id number] TAKE ONE [facility] 50-200-25 7-18 TABLET BY ity o f mg tablet 00:00: MOUTH [place] EVERY DAY Medical Branch [facility] 0 Yes [id number] TAKE ONE [facility] 50-200-25 7-18 TABLET BY ity o f mg tablet 00:00: MOUTH [place] 00 EVERY DAY Medical Branch KTIAVY 0 Yes [id number] TAKE ONE [facility] 50-200-25 7-18 TABLET BY ity o f mg tablet 00:00: MOUTH [place] 00 EVERY DAY Medical Branch KTIAVY 2021-0 Yes [id number] TAKE ONE [facility] 50-200-25 7-18 TABLET BY ity o f mg tablet 00:00: MOUTH [place] EVERY DAY Medical Branch [facility] Yes [id number] TAKE ONE [facility] 50-200-25 7-18 TABLET BY ity o f mg tablet 00:00: MOUTH [place] 00 EVERY DAY Medical Branch [facility] Yes [id number] TAKE ONE [facility] 50-200-25 7-18 TABLET BY ity o f mg tablet 00:00: MOUTH [place] 00 EVERY DAY Medical Branch [facility] 0 Yes [id number] TAKE ONE [facility] 50-200-25 7-18 TABLET BY ity o f mg tablet 00:00: MOUTH [place] 00 EVERY DAY Medical Branch KTIAVY 0 Yes [id number] TAKE ONE [facility] 50-200-25 7-18 TABLET BY ity o f mg tablet 00:00: MOUTH [place] 00 EVERY DAY Medical Branch KTIAVY 0 Yes [id number] TAKE ONE [facility] 50-200-25 6-21 TABLET BY ity o f mg tablet 00:00: MOUTH [place] 00 EVERY DAY Medical Branch [facility] 2021-0 Yes [id number] TAKE ONE [facility] 50-200-25 6-21 TABLET BY ity o f mg tablet 00:00: MOUTH [place] 00 EVERY DAY Medical Branch KTIAVY 2021-0 Yes [id number] TAKE ONE [facility] 50-200-25 6-21 TABLET BY ity o f mg tablet 00:00: MOUTH [place] 00 EVERY DAY Medical Branch BIKTARVY 2021-0 2021- No [id number] TAKE ONE [facility] 50-200-25 6-21 07-18 TABLET BY ity of mg tablet 00:00: 00:00 MOUTH [place] 00 :00 EVERY DAY Medical Branch BENZONATATE 0 Yes Take 1 [facility] ers 100 mg 6-17 capsule by ity of capsule 00:00: mouth three Medical times Branch daily as needed for cough BENZONATATE 0 Yes Take 1 [facility] ers 100 mg 6-17 capsule by ity of capsule 00:00: mouth three Medical times Branch daily as needed for cough BENZONATATE 0 Yes Take 1 [facility] ers 100 mg 6-17 capsule by ity of capsule 00:00: mouth three Medical times Branch daily as needed for cough BENZONATATE 0 Yes Take 1 [facility] ers 100 mg 6-17 capsule by ity of capsule 00:00: mouth three Medical times Branch daily as needed for cough BENZONATATE 0 2021- No Take 1 [facility] vers 100 mg 6-17 07-21 capsule by ity of capsule 00:00: 00:00 mouth [place] 00 :00 three Medical times Branch daily as needed for cough CITALOPRAM 0 Yes [id number] Take 1 U nivers 40 mg 6-07 tablet by ity of tablet 00:00: mouth daily Medical Branch CITALOPRAM 2021-0 Yes [id number] Take 1 U nivers 40 mg 6-07 tablet by ity of tablet 00:00: mouth daily Medical Branch CITALOPRAM 2021-0 Yes [id number] Take 1 U nivers 40 mg 6-07 tablet by ity of tablet 00:00: mouth daily Medical Branch CITALOPRAM 2021-0 Yes [id number] Take 1 U nivers 40 mg 6-07 tablet by ity of tablet 00:00: mouth daily Medical Branch CITALOPRAM 2021-0 Yes [id number] Take 1 U nivers 40 mg 6-07 tablet by ity of tablet 00:00: mouth daily Medical Branch CITALOPRAM 2021-0 Yes [id number] Take 1 U nivers 40 mg 6-07 tablet by ity of tablet 00:00: mouth daily Medical Branch CITALOPRAM 2021-0 Yes [id number] Take 1 U nivers 40 mg 6-07 tablet by ity of tablet 00:00: mouth daily Medical Branch CITALOPRAM 2021-0 Yes [id number] Take 1 U nivers 40 mg 6-07 tablet by ity of tablet 00:00: mouth daily Medical Branch CITALOPRAM 2021-0 Yes [id number] Take 1 U nivers 40 mg 6-07 tablet by ity of tablet 00:00: mouth once daily Medical Branch CITALOPRAM 0 2021- No [id number] Take 1 [facility] 40 mg 6-07 08-04 tablet by ity of tablet 00:00: 00:00 mouth [place] 00 :00 daily Medical Branch Nebulizer & 2021-0 Yes [id number] Use as [facility] Compressor 5-06 directed ity o f For Neb 00:00: Medical Branch Nebulizer & 2021-0 Yes [id number] Use as [facility] Compressor 5-06 directed ity o f For Neb 00:00: Medical Branch Nebulizer & 2021-0 Yes [id number] Use as [facility] Compressor 5-06 directed ity o f For Neb 00:00: Medical Branch Nebulizer & 2021-0 Yes [id number] Use as [facility] Compressor 5-06 directed ity o f For Neb 00:00: Medical Branch Nebulizer & 2021-0 Yes [id number] Use as [facility] Compressor 5-06 directed ity o f For Neb 00:00: Medical Branch Nebulizer & 2021-0 Yes [id number] Use as [facility] Compressor 5-06 directed ity o f For Neb 00:00: Medical Branch Nebulizer & 2021-0 Yes [id number] Use as [facility] Compressor 5-06 directed ity o f For Neb 00:00: Medical Branch Nebulizer & 2021-0 Yes [id number] Use as [facility] Compressor 5-06 directed ity o f For Neb 00:00: Medical Branch Nebulizer & 2021-0 Yes [id number] Use as [facility] Compressor 5-06 directed ity o f For Neb 00:00: Medical Branch ipratropium 2021-0 Yes [id number] 3mL Inhale 3 [facility] -albuteroL 5-06 mL every 4 ity of 0.5 mg-3 00:00: (four) [place] mg(2.5 mg 00 hours as Medica l base)/3 mL needed for [facility] nebulizer Wheezing solution or Shortness of Breath. Nebulizer & 2021-0 Yes [id number] Use as [facility] Compressor 5-06 directed ity o f For Neb 00:00: Medical Branch ipratropium 2021-0 Yes [id number] 3mL Inhale 3 [facility] -albuteroL 5-06 mL every 4 ity of 0.5 mg-3 00:00: (four) [place] mg(2.5 mg 00 hours as Medica l base)/3 mL needed for Bra nch nebulizer Wheezing solution or Shortness of Breath. Nebulizer & 2021-0 Yes [id number] Use as [facility] Compressor 5-06 directed ity o f For Neb 00:00: Medical Branch ipratropium 2021-0 Yes [id number] 3mL Inhale 3 [facility] -albuteroL 5-06 mL every 4 ity of 0.5 mg-3 00:00: (four) [place] mg(2.5 mg 00 hours as Medica l base)/3 mL needed for Bra nc nebulizer Wheezing solution or Shortness of Breath. Nebulizer & 2021-0 Yes [id number] Use as [facility] Compressor 5-06 directed ity o f For Neb 00:00: Medical Branch ipratropium 2021-0 Yes [id number] 3mL Inhale 3 [facility] -albuteroL 5-06 mL every 4 ity of 0.5 mg-3 00:00: (four) [place] mg(2.5 mg 00 hours as Medica l base)/3 mL needed for Bra count includes the [facility] nebulizer Wheezing solution or Shortness of Breath. Nebulizer & 2021-0 Yes [id number] Use as [facility] Compressor 5-06 directed ity o f For Neb 00:00: Medical Branch ipratropium 2021-0 Yes [id number] 3mL Inhale 3 [facility] -albuteroL 5-06 mL every 4 ity of 0.5 mg-3 00:00: (four) [place] mg(2.5 mg 00 hours as Medica l base)/3 mL needed for Bra nch nebulizer Wheezing solution or Shortness of Breath. Nebulizer & 2021-0 Yes [id number] Use as [facility] Compressor 5-06 directed ity o f For Neb 00:00: Medical Branch ipratropium 2021-0 Yes [id number] 3mL Inhale 3 [facility] -albuteroL 5-06 mL every 4 ity of 0.5 mg-3 00:00: (four) [place] mg(2.5 mg 00 hours as Medica l base)/3 mL needed for Bra nch nebulizer Wheezing solution or Shortness of Breath. Nebulizer & 2021-0 Yes [id number] Use as [facility] Compressor 5-06 directed ity o f For Neb 00:00: Medical Branch ipratropium 2021-0 Yes [id number] 3mL Inhale 3 [facility] -albuteroL 5-06 mL every 4 ity of 0.5 mg-3 00:00: (four) [place] mg(2.5 mg 00 hours as Medica l base)/3 mL needed for Bra nch nebulizer Wheezing solution or Shortness of Breath. Nebulizer & 2021-0 Yes [id number] Use as [facility] Compressor 5-06 directed ity o f For Neb 00:00: Medical Branch ipratropium 2021-0 Yes [id number] 3mL Inhale 3 [facility] -albuteroL 5-06 mL every 4 ity of 0.5 mg-3 00:00: (four) [place] mg(2.5 mg 00 hours as Medica l base)/3 mL needed for Bra nch nebulizer Wheezing solution or Shortness of Breath. Nebulizer & 0 Yes [id number] Use as [facility] Compressor 5-06 directed ity o f For Neb 00:00: Medical Branch ipratropium 2021-0 Yes [id number] 3mL Inhale 3 [facility] -albuteroL 5-06 mL every 4 ity of 0.5 mg-3 00:00: (four) [place] mg(2.5 mg 00 hours as Medica l base)/3 mL needed for Bra nch nebulizer Wheezing solution or Shortness of Breath. Nebulizer & 2021-0 Yes [id number] Use as [facility] Compressor 5-06 directed ity o f For Neb 00:00: Medical Branch ipratropium 2021-0 Yes [id number] 3mL Inhale 3 [facility] -albuteroL 5-06 mL every 4 ity of 0.5 mg-3 00:00: (four) [place] mg(2.5 mg 00 hours as Medica l base)/3 mL needed for Bra nch nebulizer Wheezing solution or Shortness of Breath. Nebulizer & 2021-0 Yes [id number] Use as [facility] Compressor 5-06 directed ity o f For Neb 00:00: Medical Branch ipratropium 2021-0 Yes [id number] 3mL Inhale 3 [facility] -albuteroL 5-06 mL every 4 ity of 0.5 mg-3 00:00: (four) [place] mg(2.5 mg 00 hours as Medica l base)/3 mL needed for Bra count includes the [facility] nebulizer Wheezing solution or Shortness of Breath. Nebulizer & 2021-0 Yes [id number] Use as [facility] Compressor 5-06 directed ity o f For Neb 00:00: Medical Branch Nebulizer & 2021-0 Yes [id number] Use as [facility] Compressor 5-06 directed ity o f For Neb 00:00: Medical Branch Nebulizer & 2021-0 Yes [id number] Use as [facility] Compressor 5-06 directed ity o f For Neb 00:00: Medical Branch Nebulizer & 2021-0 Yes [id number] Use as [facility] Compressor 5-06 directed ity o f For Neb 00:00: Medical Branch Nebulizer & 2021-0 Yes [id number] Use as [facility] Compressor 5-06 directed ity o f For Neb 00:00: Medical Branch Nebulizer & 2021-0 Yes [id number] Use as [facility] Compressor 5-06 directed ity o f For Neb 00:00: Medical Branch Nebulizer & 2021-0 Yes [id number] Use as [facility] Compressor 5-06 directed ity o f For Neb 00:00: Medical Branch Nebulizer & 2021-0 Yes [id number] Use as [facility] Compressor 5-06 directed ity o f For Neb 00:00: Medical Branch Nebulizer & 2021-0 Yes [id number] Use as [facility] Compressor 5-06 directed ity o f For Neb 00:00: Medical Branch Nebulizer & 2021-0 Yes [id number] Use as [facility] Compressor 5-06 directed ity o f For Neb 00:00: Medical Branch Nebulizer & 2021-0 Yes [id number] Use as [facility] Compressor 5-06 directed ity o f For Neb 00:00: Medical Branch Nebulizer & 2021-0 2023- No [id number] Use as [facility] Compressor 5-06 02- directed ity of For Neb 00:00: 00:00 [place] 00 :00 Medical Branch ipratropium 2021-0 2021- No [id number] 3mL Inhale 3 [facility] -albuteroL 08-14 08-18 mL every 4 it y of 0.5 mg-3 00:00: 00:00 (four) [place] mg(2.5 mg 00 :00 hours as Medica l base)/3 mL needed for Bra count includes the [facility] nebulizer Wheezing solution or Shortness of Breath. BUSPIRONE 2021-0 Yes [id number] 10mg TAKE 1 Un [facility] 10 mg 5-03 TABLET BY ity of tablet 00:00: MOUTH (TWO) Medical TIMES Branch DAILY. BUSPIRONE 2021-0 Yes [id number] 10mg TAKE 1 [facility] 10 mg 5-03 TABLET BY ity of tablet 00:00: MOUTH (TWO) Medical TIMES Branch DAILY. BUSPIRONE 2021-0 Yes [id number] 10mg TAKE 1 [facility] [place] 10 mg 5-03 TABLET BY ity of tablet 00:00: MOUTH (TWO) Medical TIMES Branch DAILY. BUSPIRONE 2021-0 Yes [id number] 10mg TAKE 1 [facility] [place] 10 mg 5-03 TABLET BY ity of tablet 00:00: MOUTH (TWO) Medical TIMES Branch DAILY. BUSPIRONE 2021-0 Yes [id number] 10mg TAKE 1 [facility] [place] 10 mg 5-03 TABLET BY ity of tablet 00:00: MOUTH (TWO) Medical TIMES Branch DAILY. BUSPIRONE 2021-0 Yes [id number] 10mg TAKE 1 [facility] [place] 10 mg 5-03 TABLET BY ity of tablet 00:00: MOUTH (TWO) Medical TIMES Branch DAILY. BUSPIRONE 2021-0 Yes [id number] 10mg TAKE 1 [facility] [place] 10 mg 5-03 TABLET BY ity of tablet 00:00: MOUTH (TWO) Medical TIMES Branch DAILY. BUSPIRONE 2021-0 Yes [id number] 10mg TAKE 1 [facility] [place] 10 mg 5-03 TABLET BY ity of tablet 00:00: MOUTH (TWO) Medical TIMES Branch DAILY. BUSPIRONE 2021-0 Yes [id number] 10mg TAKE 1 [facility] [place] 10 mg 5-03 TABLET BY ity of tablet 00:00: MOUTH 2 (TWO) Medical TIMES Branch DAILY. BUSPIRONE 2022-0 Yes [id number] 10mg TAKE 1 [facility] [place] 10 mg 5-03 TABLET BY ity of tablet 00:00: MOUTH 2 (TWO) Medical TIMES Branch DAILY. BUSPIRONE 2022-0 Yes [id number] 10mg TAKE 1 [facility] [place] 10 mg 5-03 TABLET BY ity of tablet 00:00: MOUTH 2 00 (TWO) Medical TIMES Branch DAILY. BUSPIRONE 2022-0 Yes [id number] 10mg TAKE 1 [facility] [place] 10 mg 5-03 TABLET BY ity of tablet 00:00: MOUTH 2 (TWO) Medical TIMES Branch DAILY. BUSPIRONE 2022-0 Yes [id number] 10mg TAKE 1 [facility] 10 mg 5-03 TABLET BY ity of tablet 00:00: MOUTH [place] (TWO) Medical TIMES Branch DAILY. BUSPIRONE 2-0 Yes [id number] 10mg TAKE 1 [facility] 10 mg 5-03 TABLET BY ity of tablet 00:00: MOUTH (TWO) Medical TIMES Branch DAILY. BUSPIRONE 2022-0 2022- No [id number] 10mg TAKE 1 U [facility] 10 mg 5-03 -26 TABLET BY ity of tablet 00:00: 00:00 MOUTH 2 [place] 00 :00 (TWO) Medical TIMES Branch DAILY. BUSPIRONE 2022-0 2022- No [id number] 10mg TAKE 1 U nivers 10 mg 5-03 -26 TABLET BY ity of tablet 00:00: 00:00 MOUTH 2 [place] 00 :00 (TWO) Medical TIMES Branch DAILY. albuterol 2021-0 Yes [id number] 2.5mg Inhale 3 [facility] 2.5 mg /3 5-01 mL every 4 ity of mL (0.083 00:00: (four) [place] %) 00 hours as Medical nebulizer needed for Bran ch solution Wheezing, Shortness of Breath, Bronchospa sm or Chest tightness. albuterol 2022-0 Yes [id number] 2.5mg Inhale 3 [facility] 2.5 mg /3 5-01 mL every 4 ity of mL (0.083 00:00: (four) [place] %) 00 hours as Medical nebulizer needed for Bran ch solution Wheezing, Shortness of Breath, Bronchospa sm or Chest tightness. albuterol 2021-0 Yes [id number] 2.5mg Inhale 3 [facility] 2.5 mg /3 5-01 mL every 4 ity of mL (0.083 00:00: ([facility]) [place] %) 00 hours as Medical nebulizer needed for Bran ch solution Wheezing, Shortness of Breath, Bronchospa sm or Chest tightness. albuterol 2021-0 Yes [id number] 2.5mg Inhale 3 [facility] 2.5 mg /3 5-01 mL every 4 ity of mL (0.083 00:00: ([facility]) [place] %) 00 hours as Medical nebulizer needed for Bran ch solution Wheezing, Shortness of Breath, Bronchospa sm or Chest tightness. albuterol 2021-0 Yes [id number] 2.5mg Inhale 3 [facility] 2.5 mg /3 5-01 mL every 4 ity of mL (0.083 00:00: ([facility]) [place] %) 00 hours as Medical nebulizer needed for Bran ch solution Wheezing, Shortness of Breath, Bronchospa sm or Chest tightness. albuterol 2021-0 Yes [id number] 2.5mg Inhale 3 [facility] 2.5 mg /3 5-01 mL every 4 ity of mL (0.083 00:00: ([facility]) [place] %) 00 hours as Medical nebulizer needed for Bran ch solution Wheezing, Shortness of Breath, Bronchospa sm or Chest tightness. albuterol 2021-0 Yes [id number] 2.5mg Inhale 3 [facility] 2.5 mg /3 5-01 mL every 4 ity of mL (0.083 00:00: ([facility]) [place] %) 00 hours as Medical nebulizer needed for Bran ch solution Wheezing, Shortness of Breath, Bronchospa sm or Chest tightness. albuterol 2021-0 Yes [id number] 2.5mg Inhale 3 [facility] 2.5 mg /3 5-01 mL every 4 ity of mL (0.083 00:00: ([facility]) [place] %) 00 hours as Medical nebulizer needed for Bran ch solution Wheezing, Shortness of Breath, Bronchospa sm or Chest tightness. budesonide- 2022-0 Yes [id number] Inhale 2 [facility] formoteroL 5-01 puffs by ity o f 80-4.5 00:00: mouth [place] mcg/actuati 00 twice Medical on inhaler daily Branch montelukast 0 Yes [id number] 10mg Take 1 [facility] 10 mg 5-01 tablet by ity of tablet 00:00: mouth at [place] 00 bedtime. Medical Branch tiotropium 0 Yes [id number] 18ug Inhale 1 [facility] 18 mcg 5-01 capsule ity of inhalation 00:00: daily. Medical Branch albuterol Yes [id number] 2{puff} Inhale 2 [facility] 90 5-01 Puffs ity of mcg/actuati 00:00: every 4 [place] on inhaler 00 (four) Medical hours as Branch needed for Wheezing or Shortness of Breath. albuterol Yes [id number] 2.5mg Inhale 3 [facility] 2.5 mg /3 5-01 mL every 4 ity of mL (0.083 00:00: (four) [place] %) 00 hours as Medical nebulizer needed for Bran ch solution Wheezing, Shortness of Breath, Bronchospa sm or Chest tightness. budesonide- Yes [id number] Inhale 2 [facility] formoteroL 5-01 puffs by ity o f 80-4.5 00:00: mouth [place] mcg/actuati 00 twice Medical on inhaler daily Branch montelukast 0 Yes [id number] 10mg Take 1 [facility] 10 mg 5-01 tablet by ity of tablet 00:00: mouth at [place] 00 bedtime. Medical Branch tiotropium Yes [id number] 18ug Inhale 1 [facility] 18 mcg 5-01 capsule ity of inhalation 00:00: daily. [place] Medical Branch albuterol Yes [id number] 2{puff} Inhale 2 [facility] 90 5-01 Puffs ity of mcg/actuati 00:00: every 4 [place] on inhaler 00 (four) Medical hours as Branch needed for Wheezing or Shortness of Breath. albuterol 0 Yes [id number] 2.5mg Inhale 3 [facility] 2.5 mg /3 5-01 mL every 4 ity of mL (0.083 00:00: (four) [place] %) 00 hours as Medical nebulizer needed for Bran ch solution Wheezing, Shortness of Breath, Bronchospa sm or Chest tightness. budesonide- Yes [id number] Inhale 2 [facility] formoteroL 5-01 puffs by ity o f 80-4.5 00:00: mouth [place] mcg/actuati 00 twice Medical on inhaler daily Branch montelukast 0 Yes [id number] 10mg Take 1 [facility] 10 mg 5-01 tablet by ity of tablet 00:00: mouth at [place] 00 bedtime. Medical Branch tiotropium Yes [id number] 18ug Inhale 1 [facility] 18 mcg 5-01 capsule ity of inhalation 00:00: daily. Medical Branch albuterol Yes [id number] 2{puff} Inhale 2 [facility] 90 5-01 Puffs ity of mcg/actuati 00:00: every 4 [place] on inhaler 00 (four) Medical hours as Branch needed for Wheezing or Shortness of Breath. albuterol Yes [id number] 2.5mg Inhale 3 Univers 2.5 mg /3 5-01 mL every 4 ity of mL (0.083 00:00: (four) [place] %) 00 hours as Medical nebulizer needed for Bran ch solution Wheezing, Shortness of Breath, Bronchospa sm or Chest tightness. budesonide- Yes [id number] Inhale 2 [facility] formoteroL 5-01 puffs by ity o f 80-4.5 00:00: mouth [place] mcg/actuati 00 twice Medical on inhaler daily Branch montelukast 0 Yes [id number] 10mg Take 1 [facility] 10 mg 5-01 tablet by ity of tablet 00:00: mouth at [place] 00 bedtime. Medical Branch tiotropium Yes [id number] 18ug Inhale 1 [facility] 18 mcg 5-01 capsule ity of inhalation 00:00: daily. Medical Branch albuterol 0 Yes [id number] 2{puff} Inhale 2 [facility] 90 5-01 Puffs ity of mcg/actuati 00:00: every 4 [place] as on inhaler 00 (four) Medical hours as Branch needed for Wheezing or Shortness of Breath. albuterol 0 Yes [id number] 2.5mg Inhale 3 [facility] 2.5 mg /3 5-01 mL every 4 ity of mL (0.083 00:00: (four) [place] %) 00 hours as Medical nebulizer needed for Bran ch solution Wheezing, Shortness of Breath, Bronchospa sm or Chest tightness. budesonide- 0 Yes [id number] Inhale 2 [facility] formoteroL 5-01 puffs by ity o f 80-4.5 00:00: mouth [place] mcg/actuati 00 twice Medical on inhaler daily Branch montelukast 0 Yes [id number] 10mg Take 1 [facility] 10 mg 5-01 tablet by ity of tablet 00:00: mouth at [place] 00 bedtime. Medical Branch tiotropium 0 Yes [id number] 18ug Inhale 1 [facility] 18 mcg 5-01 capsule ity of inhalation 00:00: daily. [place] Medical Branch albuterol Yes [id number] 2.5mg Inhale 3 [facility] 2.5 mg /3 5-01 mL every 4 ity of mL (0.083 00:00: (four) [place] %) 00 hours as Medical nebulizer needed for Bran ch solution Wheezing, Shortness of Breath, Bronchospa sm or Chest tightness. budesonide- Yes [id number] Inhale 2 [facility] formoteroL 5-01 puffs by ity o f 80-4.5 00:00: mouth [place] mcg/actuati 00 twice Medical on inhaler daily Branch montelukast 2021-0 Yes [id number] 10mg Take 1 [facility] 10 mg 5-01 tablet by ity of tablet 00:00: mouth at [place] 00 bedtime. Medical Branch tiotropium 0 Yes [id number] 18ug Inhale 1 [facility] 18 mcg 5-01 capsule ity of inhalation 00:00: daily. [place] [facility] Branch albuterol 0 Yes [id number] 2.5mg Inhale 3 Univers 2.5 mg /3 5-01 mL every 4 ity of mL (0.083 00:00: (four) [place] %) 00 hours as Medical nebulizer needed for Bran ch solution Wheezing, Shortness of Breath, Bronchospa sm or Chest tightness. budesonide- Yes [id number] Inhale 2 [facility] formoteroL 5-01 puffs by ity o f 80-4.5 00:00: mouth [place] mcg/actuati 00 twice Medical on inhaler daily Branch montelukast 0 Yes [id number] 10mg Take 1 [facility] 10 mg 5-01 tablet by ity of tablet 00:00: mouth at [place] 00 bedtime. Medical Branch tiotropium Yes [id number] 18ug Inhale 1 [facility] 18 mcg 5-01 capsule ity of inhalation 00:00: daily. Medical Branch albuterol Yes [id number] 2.5mg Inhale 3 [facility] 2.5 mg /3 5-01 mL every 4 ity of mL (0.083 00:00: (four) [place] %) 00 hours as Medical nebulizer needed for Bran ch solution Wheezing, Shortness of Breath, Bronchospa sm or Chest tightness. budesonide- Yes [id number] Inhale 2 [facility] formoteroL 5-01 puffs by ity o f 80-4.5 00:00: mouth [place] mcg/actuati 00 twice Medical on inhaler daily Branch montelukast 0 Yes [id number] 10mg Take 1 [facility] 10 mg 5-01 tablet by ity of tablet 00:00: mouth at [place] 00 bedtime. Medical Branch tiotropium Yes [id number] 18ug Inhale 1 [facility] 18 mcg 5-01 capsule ity of inhalation 00:00: daily. Medical Branch albuterol 0 Yes [id number] 2.5mg Inhale 3 [facility] 2.5 mg /3 5-01 mL every 4 ity of mL (0.083 00:00: (four) [place] %) 00 hours as Medical nebulizer needed for Bran ch solution Wheezing, Shortness of Breath, Bronchospa sm or Chest tightness. budesonide- Yes [id number] Inhale 2 [facility] formoteroL 5-01 puffs by ity o f 80-4.5 00:00: mouth [place] mcg/actuati 00 twice Medical on inhaler daily Branch montelukast 2021-0 Yes [id number] 10mg Take 1 [facility] 10 mg 5-01 tablet by ity of tablet 00:00: mouth at [place] 00 bedtime. Medical Branch tiotropium Yes [id number] 18ug Inhale 1 [facility] 18 mcg 5-01 capsule ity of inhalation 00:00: daily. Medical Branch albuterol 0 Yes [id number] 2.5mg Inhale 3 Univers 2.5 mg /3 5-01 mL every 4 ity of mL (0.083 00:00: (four) [place] %) 00 hours as Medical nebulizer needed for Bran ch solution Wheezing, Shortness of Breath, Bronchospa sm or Chest tightness. budesonide- Yes [id number] Inhale 2 [facility] formoteroL 5-01 puffs by ity o f 80-4.5 00:00: mouth [place] mcg/actuati 00 twice Medical on inhaler daily Branch montelukast 0 Yes [id number] 10mg Take 1 [facility] 10 mg 5-01 tablet by ity of tablet 00:00: mouth at [place] 00 bedtime. Medical Branch tiotropium Yes [id number] 18ug Inhale 1 [facility] 18 mcg 5-01 capsule ity of inhalation 00:00: daily. Medical Branch albuterol Yes [id number] 2.5mg Inhale 3 Univers 2.5 mg /3 5-01 mL every 4 ity of mL (0.083 00:00: (four) [place] %) 00 hours as Medical nebulizer needed for Bran ch solution Wheezing, Shortness of Breath, Bronchospa sm or Chest tightness. budesonide- Yes [id number] Inhale 2 [facility] formoteroL 5-01 puffs by ity o f 80-4.5 00:00: mouth [place] mcg/actuati 00 twice Medical on inhaler daily Branch montelukast 2021-0 Yes [id number] 10mg Take 1 [facility] 10 mg 5-01 tablet by ity of tablet 00:00: mouth at [place] 00 bedtime. Medical Branch tiotropium 0 Yes [id number] 18ug Inhale 1 [facility] 18 mcg 5-01 capsule ity of inhalation 00:00: daily. Medical Branch albuterol Yes [id number] 2.5mg Inhale 3 [facility] 2.5 mg /3 5-01 mL every 4 ity of mL (0.083 00:00: (four) [place] %) 00 hours as Medical nebulizer needed for Bran ch solution Wheezing, Shortness of Breath, Bronchospa sm or Chest tightness. budesonide- Yes [id number] Inhale 2 [facility] formoteroL 5-01 puffs by ity o f 80-4.5 00:00: mouth [place] mcg/actuati 00 twice Medical on inhaler daily Branch montelukast 0 Yes [id number] 10mg Take 1 [facility] 10 mg 5-01 tablet by ity of tablet 00:00: mouth at [place] 00 bedtime. Medical Branch tiotropium Yes [id number] 18ug Inhale 1 [facility] 18 mcg 5-01 capsule ity of inhalation 00:00: daily. Medical Branch albuterol 0 Yes [id number] 2.5mg Inhale 3 [facility] 2.5 mg /3 5-01 mL every 4 ity of mL (0.083 00:00: (four) [place] %) 00 hours as Medical nebulizer needed for Bran ch solution Wheezing, Shortness of Breath, Bronchospa sm or Chest tightness. budesonide- Yes [id number] Inhale 2 [facility] formoteroL 5-01 puffs by ity o f 80-4.5 00:00: mouth [place] mcg/actuati 00 twice Medical on inhaler daily Branch montelukast 2021-0 Yes [id number] 10mg Take 1 [facility] 10 mg 5-01 tablet by ity of tablet 00:00: mouth at [place] 00 bedtime. Medical Branch tiotropium 0 Yes [id number] 18ug Inhale 1 [facility] 18 mcg 5-01 capsule ity of inhalation 00:00: daily. [place] Medical Branch albuterol 2021-0 Yes [id number] 2.5mg Inhale 3 [facility] 2.5 mg /3 5-01 mL every 4 ity of mL (0.083 00:00: (four) [place] %) 00 hours as Medical nebulizer needed for Bran ch solution Wheezing, Shortness of Breath, Bronchospa sm or Chest tightness. budesonide- Yes [id number] Inhale 2 [facility] formoteroL 5-01 puffs by ity o f 80-4.5 00:00: mouth [place] mcg/actuati 00 twice Medical on inhaler daily Branch montelukast 0 Yes [id number] 10mg Take 1 [facility] 10 mg 5-01 tablet by ity of tablet 00:00: mouth at [place] 00 bedtime. Medical Branch tiotropium 0 Yes [id number] 18ug Inhale 1 [facility] 18 mcg 5-01 capsule ity of inhalation 00:00: daily. Medical Branch albuterol Yes [id number] 2.5mg Inhale 3 Univers 2.5 mg /3 5-01 mL every 4 ity of mL (0.083 00:00: (four) [place] %) 00 hours as Medical nebulizer needed for Bran ch solution Wheezing, Shortness of Breath, Bronchospa sm or Chest tightness. budesonide- Yes [id number] Inhale 2 [facility] formoteroL 5-01 puffs by ity o f 80-4.5 00:00: mouth [place] mcg/actuati 00 twice Medical on inhaler daily Branch montelukast 0 Yes [id number] 10mg Take 1 [facility] 10 mg 5-01 tablet by ity of tablet 00:00: mouth at [place] 00 bedtime. Medical Branch tiotropium 0 Yes [id number] 18ug Inhale 1 [facility] 18 mcg 5-01 capsule ity of inhalation 00:00: daily. [place] Medical Branch albuterol 0 Yes [id number] 2.5mg Inhale 3 [facility] 2.5 mg /3 5-01 mL every 4 ity of mL (0.083 00:00: (four) [place] %) 00 hours as Medical nebulizer needed for Bran ch solution Wheezing, Shortness of Breath, Bronchospa sm or Chest tightness. budesonide- 0 Yes [id number] Inhale 2 [facility] formoteroL 5-01 puffs by ity o f 80-4.5 00:00: mouth [place] mcg/actuati 00 twice Medical on inhaler daily Branch montelukast 0 Yes [id number] 10mg Take 1 [facility] 10 mg 5-01 tablet by ity of tablet 00:00: mouth at [place] 00 bedtime. Medical Branch tiotropium 0 Yes [id number] 18ug Inhale 1 [facility] 18 mcg 5-01 capsule ity of inhalation 00:00: daily. Medical Branch albuterol 0 Yes [id number] 2.5mg Inhale 3 [facility] 2.5 mg /3 5-01 mL every 4 ity of mL (0.083 00:00: (four) [place] %) 00 hours as Medical nebulizer needed for Bran ch solution Wheezing, Shortness of Breath, Bronchospa sm or Chest tightness. budesonide- Yes [id number] Inhale 2 [facility] formoteroL 5-01 puffs by ity o f 80-4.5 00:00: mouth [place] mcg/actuati 00 twice Medical on inhaler daily Branch tiotropium 0 Yes [id number] 18ug Inhale 1 [facility] 18 mcg 5-01 capsule ity of inhalation 00:00: daily. [place] [facility] Branch albuterol Yes [id number] 2.5mg Inhale 3 Univers 2.5 mg /3 5-01 mL every 4 ity of mL (0.083 00:00: (four) [place] %) 00 hours as Medical nebulizer needed for Bran ch solution Wheezing, Shortness of Breath, Bronchospa sm or Chest tightness. budesonide- Yes [id number] Inhale 2 [facility] formoteroL 5-01 puffs by ity o f 80-4.5 00:00: mouth [place] mcg/actuati 00 twice Medical on inhaler daily Branch tiotropium 0 Yes [id number] 18ug Inhale 1 [facility] 18 mcg 5-01 capsule ity of inhalation 00:00: daily. [place] [facility] Branch albuterol 0 Yes [id number] 2.5mg Inhale 3 [facility] 2.5 mg /3 5-01 mL every 4 ity of mL (0.083 00:00: (four) [place] %) 00 hours as Medical nebulizer needed for Bran ch solution Wheezing, Shortness of Breath, Bronchospa sm or Chest tightness. budesonide- Yes [id number] Inhale 2 [facility] formoteroL 5-01 puffs by ity o f 80-4.5 00:00: mouth [place] mcg/actuati 00 twice Medical on inhaler daily Branch tiotropium Yes [id number] 18ug Inhale 1 [facility] 18 mcg 5-01 capsule ity of inhalation 00:00: daily. [place] [address] Medical Branch albuterol 0 Yes [id number] 2.5mg Inhale 3 [facility] 2.5 mg /3 5-01 mL every 4 ity of mL (0.083 00:00: (four) [place] %) 00 hours as Medical nebulizer needed for Bran ch solution Wheezing, Shortness of Breath, Bronchospa sm or Chest tightness. tiotropium Yes [id number] 18ug Inhale 1 [facility] 18 mcg 5-01 capsule ity of inhalation 00:00: daily. [place] [address] Medical Branch albuterol Yes [id number] 2.5mg Inhale 3 [facility] 2.5 mg /3 5-01 mL every 4 ity of mL (0.083 00:00: (four) [place] %) 00 hours as Medical nebulizer needed for Bran ch solution Wheezing, Shortness of Breath, Bronchospa sm or Chest tightness. albuterol Yes [id number] 2.5mg Inhale 3 [facility] 2.5 mg /3 5-01 mL every 4 ity of mL (0.083 00:00: (four) [place] %) 00 hours as Medical nebulizer needed for Bran ch solution Wheezing, Shortness of Breath, Bronchospa sm or Chest tightness. albuterol 2022- No [id number] 2.5mg Inhale 3 [facility] 2.5 mg /3 5-01 01-13 mL every 4 ity of mL (0.083 00:00: 00:00 (four) [place] %) 00 :00 hours as Medical nebulizer needed for Bran ch solution Wheezing, Shortness of Breath, Bronchospa sm or Chest tightness. tiotropium 2021- No [id number] 18ug Inhale 1 [facility] 18 mcg 5-01 10-13 capsule ity of inhalation 00:00: 00:00 daily. [place] 00 : [facility] tiotropium 2021- No [id number] 18ug Inhale 1 [facility] 18 mcg 5-01 10-13 capsule ity of inhalation 00:00: 00:00 daily. [place] 00 : [facility] budesonide- 2021- No [id number] Inhale 2 [facility] formoteroL - 10-12 puffs by ity of 80-4.5 00:00: 00:00 mouth [place] mcg/actuati 00 :00 twice Medical on inhaler daily Branch montelukast 2021- No [id number] 10mg Take 1 [facility] 10 mg 08-09 tablet by ity of tablet 00:00: 00:00 mouth at [place] 00 :00 bedtime. Medical Branch montelukast 2021- No [id number] 10mg Take 1 [facility] 10 mg 08-09 tablet by ity of tablet 00:00: 00:00 mouth at [place] 00 :00 bedtime. Medical Branch albuterol 2021- No [id number] 2{puff} Inhale 2 [facility] 90 5 07-21 Puffs ity of mcg/actuati 00:00: 00:00 every 4 [place] on inhaler 00 :00 (four) Medical hours as Branch needed for Wheezing or Shortness of Breath. Nebulizer & 2020- Yes [id number] Use as [facility] Compressor 2-23 directed ity o f For Neb 00:00: [place] [facility] Branch Nebulizer & 2020-04 Yes [id number] Use as [facility] Compressor 2-23 directed ity o f For Neb 00:00: Medical Branch Nebulizer & 2020-04 Yes [id number] Use as [facility] Compressor 2-23 directed ity o f For Neb 00:00: Medical Branch Nebulizer & 2020- Yes [id number] Use as [facility] Compressor 2-23 directed ity o f For Neb 00:00: [place] [facility] Nebulizer & 2020-04 Yes [id number] Use as [facility] Compressor 2-23 directed ity o f For Neb 00:00: Medical Branch Nebulizer & 2020- Yes [id number] Use as [facility] Compressor 2-23 directed ity o f For Neb 00:00: Medical Branch Nebulizer & 2020- Yes [id number] Use as [facility] Compressor 2-23 directed ity o f For Neb 00:00: Medical Branch Nebulizer & 2020- Yes [id number] Use as [facility] Compressor 2-23 directed ity o f For Neb 00:00: Medical Branch Nebulizer & 2020- Yes [id number] Use as [facility] Compressor 2-23 directed ity o f For Neb 00:00: Medical Branch Nebulizer & 2020- Yes [id number] Use as [facility] Compressor 2-23 directed ity o f For Neb 00:00: Medical Branch Nebulizer & 2020- Yes [id number] Use as [facility] Compressor 2-23 directed ity o f For Neb 00:00: [place] [facility] Nebulizer & 2020-04 Yes [id number] Use as [facility] Compressor 2-23 directed ity o f For Neb 00:00: Medical Branch Nebulizer & 2020- Yes [id number] Use as [facility] Compressor 2-23 directed ity o f For Neb 00:00: [place] [facility] Nebulizer & 2020-04 Yes [id number] Use as [facility] Compressor 2-23 directed ity o f For Neb 00:00: [place] [facility] Nebulizer & 2020-04 Yes [id number] Use as [facility] Compressor 2-23 directed ity o f For Neb 00:00: [place] [facility] Nebulizer & 2020-04 Yes [id number] Use as Univers Compressor 2-23 directed ity o f For Neb 00:00: [facility] Nebulizer & 2020-04 Yes [id number] Use as [facility] Compressor 2-23 directed ity o f For Neb 00:00: [facility] Nebulizer & 2020-04 Yes [id number] Use as [facility] Compressor 2-23 directed ity o f For Neb 00:00: [facility] Nebulizer & 2020-04 Yes [id number] Use as [facility] Compressor 2-23 directed ity o f For Neb 00:00: [facility] Nebulizer & 2020-04 Yes [id number] Use as [facility] Compressor 2-23 directed ity o f For Neb 00:00: [facility] Nebulizer & 2020- Yes [id number] Use as [facility] Compressor 2-23 directed ity o f For Neb 00:00: [facility] Nebulizer & 2020-04 Yes [id number] Use as [facility] Compressor 2-23 directed ity o f For Neb 00:00: Medical Branch Nebulizer & 2020-04 Yes [id number] Use as [facility] Compressor 2-23 directed ity o f For Neb 00:00: [facility] Branch Nebulizer & 2020-04 Yes [id number] Use as [facility] Compressor 2-23 directed ity o f For Neb 00:00: [facility] Nebulizer & 2020-04 Yes [id number] Use as [facility] Compressor 2-23 directed ity o f For Neb 00:00: [facility] Nebulizer & 2020-04 Yes [id number] Use as [facility] Compressor 2-23 directed ity o f For Neb 00:00: [facility] Nebulizer & 2020-04 Yes [id number] Use as [facility] Compressor 2-23 directed ity o f For Neb 00:00: [facility] Nebulizer & 2020-04 Yes [id number] Use as [facility] Compressor 2-23 directed ity o f For Neb 00:00: [facility] Nebulizer & 2020-04 Yes [id number] Use as [facility] Compressor 2-23 directed ity o f For Neb 00:00: [facility] Nebulizer & 2020-04 Yes [id number] Use as [facility] Compressor 2-23 directed ity o f For Neb 00:00: [facility] Nebulizer & 2020-04 Yes [id number] Use as [facility] Compressor 2-23 directed ity o f For Neb 00:00: [facility] Nebulizer & 2020-04 Yes [id number] Use as [facility] Compressor 2-23 directed ity o f For Neb 00:00: Medical Branch ergocalcife 2020-04 Yes [id number] Take 1 [facility] rol, 1-19 capsule by ity of vitamin d2, 00:00: mouth [place] 1,250 mcg 00 weekly. Medical (50,000 Branch unit) capsule ergocalcife 2020-04 Yes [id number] Take 1 [facility] rol, 1-19 capsule by ity of vitamin d2, 00:00: mouth [place] 1,250 mcg 00 weekly. Medical (50,000 Branch unit) capsule ergocalcife 2020-04 Yes [id number] Take 1 [facility] rol, 1-19 capsule by ity of vitamin d2, 00:00: mouth [place] 1,250 mcg 00 weekly. Medical (50,000 Branch unit) capsule ergocalcife 2020-04 Yes [id number] Take 1 [facility] rol, 1-19 capsule by ity of vitamin d2, 00:00: mouth [place] 1,250 mcg 00 weekly. Medical (50,000 Branch unit) capsule ergocalcife 2020-04 Yes [id number] Take 1 [facility] rol, 1-19 capsule by ity of vitamin d2, 00:00: mouth [place] 1,250 mcg 00 weekly. Medical (50,000 Branch unit) capsule ergocalcife 2020-04 Yes [id number] Take 1 [facility] rol, 1-19 capsule by ity of vitamin d2, 00:00: mouth [place] 1,250 mcg 00 weekly. Medical (50,000 Branch unit) capsule ergocalcife 2020-04 Yes [id number] Take 1 [facility] rol, 1-19 capsule by ity of vitamin d2, 00:00: mouth [place] 1,250 mcg 00 weekly. Medical (50,000 Branch unit) capsule ergocalcife 2020-04- No [id number] Take 1 [facility] rol, 1-19 07-26 capsule by ity of vitamin d2, 00:00: 00:00 [place] 1,250 mcg 00 :00 weekly. Medical (50,000 Branch unit) capsule fluticasone 2020-04 Yes [id number] 2{spray Use 2 [facility] (FLONASE 1-11 } Sprays in ity of SENSIMIST) 00:00: each [place] 27.5 00 nostril Medical mcg/actuati daily. Branch on nasal spray fluticasone 2020-04 Yes [id number] 2{spray Use 2 [facility] (FLONASE 1-11 } Sprays in ity of SENSIMIST) 00:00: each [place] 27.5 00 nostril Medical mcg/actuati daily. Branch on nasal spray fluticasone 2020-04 Yes [id number] 2{spray Use 2 [facility] (FLONASE 1-11 } Sprays in ity of SENSIMIST) 00:00: each [place] 27.5 00 nostril Medical mcg/actuati daily. Branch on nasal spray fluticasone 2020-04 Yes [id number] 2{spray Use 2 [facility] (FLONASE 1-11 } Sprays in ity of SENSIMIST) 00:00: each [place] [address]. 00 nostril Medical mcg/actuati daily. Branch on nasal spray fluticasone 2020-04 Yes [id number] 2{spray Use 2 [facility] (FLONASE 1-11 } Sprays in ity of SENSIMIST) 00:00: each [place] [address]. 00 nostril Medical mcg/actuati daily. Branch on nasal spray fluticasone 2020-04 Yes [id number] 2{spray Use 2 [facility] (FLONASE 1-11 } Sprays in ity of SENSIMIST) 00:00: each [place] [address]. 00 nostril Medical mcg/actuati daily. Branch on nasal spray fluticasone 2020-04 Yes [id number] 2{spray Use 2 [facility] (FLONASE 1-11 } Sprays in ity of SENSIMIST) 00:00: each [place] [address]. 00 nostril Medical mcg/actuati daily. Branch on nasal spray fluticasone 2020-04 Yes [id number] 2{spray Use 2 [facility] (FLONASE 1-11 } Sprays in ity of SENSIMIST) 00:00: each [place] [address]. 00 nostril Medical mcg/actuati daily. Branch on nasal spray fluticasone 2020-04 Yes [id number] 2{spray Use 2 [facility] (FLONASE 1-11 } Sprays in ity of SENSIMIST) 00:00: each [place] [address]. 00 nostril Medical mcg/actuati daily. Branch on nasal spray fluticasone 2020-04 Yes [id number] 2{spray Use 2 [facility] (FLONASE 1-11 } Sprays in ity of SENSIMIST) 00:00: each [place] [address]. 00 nostril Medical mcg/actuati daily. Branch on nasal spray fluticasone 2020-04 Yes [id number] 2{spray Use 2 [facility] (FLONASE 1-11 } Sprays in ity of SENSIMIST) 00:00: each [place] [address]. 00 nostril Medical mcg/actuati daily. Branch on nasal spray omeprazole 2020-04 Yes [id number] 40mg Take 1 [facility] 40 mg 1-11 capsule by ity of capsule 00:00: mouth [place] 00 daily. Medical Branch fluticasone 2020-04 Yes [id number] 2{spray Use 2 [facility] (FLONASE 1-11 } Sprays in ity of SENSIMIST) 00:00: each [place] 27.5 00 nostril Medical mcg/actuati daily. Branch on nasal spray omeprazole 2020-04 Yes [id number] 40mg Take 1 [facility] 40 mg 1-11 capsule by ity of capsule 00:00: mouth [place] 00 daily. Medical Branch fluticasone 2020-04 Yes [id number] 2{spray Use 2 [facility] (FLONASE 1-11 } Sprays in ity of SENSIMIST) 00:00: each [place] 27.5 00 nostril Medical mcg/actuati daily. Branch on nasal spray omeprazole 2020-04 Yes [id number] 40mg Take 1 [facility] 40 mg 1-11 capsule by ity of capsule 00:00: mouth [place] 00 daily. Medical Branch fluticasone 2020-04 Yes [id number] 2{spray Use 2 [facility] (FLONASE 1-11 } Sprays in ity of SENSIMIST) 00:00: each [place] 27.5 00 nostril Medical mcg/actuati daily. Branch on nasal spray omeprazole 2020-04 Yes [id number] 40mg Take 1 [facility] 40 mg 1-11 capsule by ity of capsule 00:00: mouth [place] 00 daily. Medical Branch fluticasone 2020-04 Yes [id number] 2{spray Use 2 [facility] (FLONASE 1-11 } Sprays in ity of SENSIMIST) 00:00: each [place] 27.5 00 nostril Medical mcg/actuati daily. Branch on nasal spray omeprazole 2020-04 Yes [id number] 40mg Take 1 [facility] 40 mg 1-11 capsule by ity of capsule 00:00: mouth [place] 00 daily. Medical Branch fluticasone 2020-04 Yes [id number] 2{spray Use 2 [facility] (FLONASE 1-11 } Sprays in ity of SENSIMIST) 00:00: each [place] 27.5 00 nostril Medical mcg/actuati daily. Branch on nasal spray omeprazole 2020-04 Yes [id number] 40mg Take 1 [facility] 40 mg 1-11 capsule by ity of capsule 00:00: mouth [place] 00 daily. Medical Branch fluticasone 2020-04 Yes [id number] 2{spray Use 2 [facility] (FLONASE 1-11 } Sprays in ity of SENSIMIST) 00:00: each [place] 27.5 00 nostril Medical mcg/actuati daily. Branch on nasal spray omeprazole 2020-04 Yes [id number] 40mg Take 1 [facility] 40 mg 1-11 capsule by ity of capsule 00:00: mouth [place] 00 daily. Medical Branch fluticasone 2020-04 Yes [id number] 2{spray Use 2 [facility] (FLONASE 1-11 } Sprays in ity of SENSIMIST) 00:00: each [place] 27.5 00 nostril Medical mcg/actuati daily. Branch on nasal spray omeprazole 2020-04 Yes [id number] 40mg Take 1 [facility] 40 mg 1-11 capsule by ity of capsule 00:00: mouth [place] 00 daily. Medical Branch fluticasone 2020-04 Yes [id number] 2{spray Use 2 [facility] (FLONASE 1-11 } Sprays in ity of SENSIMIST) 00:00: each [place] 27.5 00 nostril Medical mcg/actuati daily. Branch on nasal spray omeprazole 2020-04 Yes [id number] 40mg Take 1 [facility] 40 mg 1-11 capsule by ity of capsule 00:00: mouth [place] 00 daily. Medical Branch fluticasone 2020-04 Yes [id number] 2{spray Use 2 [facility] (FLONASE 1-11 } Sprays in ity of SENSIMIST) 00:00: each [place] 27.5 00 nostril Medical mcg/actuati daily. Branch on nasal spray omeprazole 2020- Yes [id number] 40mg Take 1 [facility] 40 mg 1-11 capsule by ity of capsule 00:00: mouth [place] 00 daily. Medical Branch fluticasone 2020-04 Yes [id number] 2{spray Use 2 [facility] (FLONASE 1-11 } Sprays in ity of SENSIMIST) 00:00: each [place] 27.5 00 nostril Medical mcg/actuati daily. Branch on nasal spray omeprazole 2020- Yes [id number] 40mg Take 1 [facility] 40 mg 1-11 capsule by ity of capsule 00:00: mouth [place] 00 daily. Medical Branch fluticasone 2020-04 Yes [id number] 2{spray Use 2 [facility] (FLONASE 1-11 } Sprays in ity of SENSIMIST) 00:00: each [place] 27.5 00 nostril Medical mcg/actuati daily. Branch on nasal spray omeprazole 2020-04 Yes [id number] 40mg Take 1 [facility] 40 mg 1-11 capsule by ity of capsule 00:00: mouth [place] 00 daily. Medical Branch fluticasone 2020-04 Yes [id number] 2{spray Use 2 [facility] (FLONASE 1-11 } Sprays in ity of SENSIMIST) 00:00: each [place] 27.5 00 nostril Medical mcg/actuati daily. Branch on nasal spray omeprazole 2020-04 Yes [id number] 40mg Take 1 [facility] 40 mg 1-11 capsule by ity of capsule 00:00: mouth [place] 00 daily. Medical Branch fluticasone 2020-04 Yes [id number] 2{spray Use 2 [facility] (FLONASE 1-11 } Sprays in ity of SENSIMIST) 00:00: each [place] 27.5 00 nostril Medical mcg/actuati daily. Branch on nasal spray omeprazole 2020-04 Yes [id number] 40mg Take 1 [facility] 40 mg 1-11 capsule by ity of capsule 00:00: mouth [place] 00 daily. Medical Branch fluticasone 2020-04 Yes [id number] 2{spray Use 2 [facility] (FLONASE 1-11 } Sprays in ity of SENSIMIST) 00:00: each [place] 27.5 00 nostril Medical mcg/actuati daily. Branch on nasal spray omeprazole 2020- Yes [id number] 40mg Take 1 [facility] 40 mg 1-11 capsule by ity of capsule 00:00: mouth [place] 00 daily. Medical Branch fluticasone 2020-04 Yes [id number] 2{spray Use 2 [facility] (FLONASE 1-11 } Sprays in ity of SENSIMIST) 00:00: each [place] 27.5 00 nostril Medical mcg/actuati daily. Branch on nasal spray omeprazole 2020- Yes [id number] 40mg Take 1 [facility] 40 mg 1-11 capsule by ity of capsule 00:00: mouth [place] 00 daily. Medical Branch fluticasone 2020-04 Yes [id number] 2{spray Use 2 [facility] (FLONASE 1-11 } Sprays in ity of SENSIMIST) 00:00: each [place] 27.5 00 nostril Medical mcg/actuati daily. Branch on nasal spray fluticasone 2020-04 Yes [id number] 2{spray Use 2 [facility] (FLONASE 1-11 } Sprays in ity of SENSIMIST) 00:00: each [place] 27.5 00 nostril Medical mcg/actuati daily. Branch on nasal spray fluticasone 2020-04 Yes [id number] 2{spray Use 2 [facility] (FLONASE 1-11 } Sprays in ity of SENSIMIST) 00:00: each [place] 27.5 00 nostril Medical mcg/actuati daily. Branch on nasal spray fluticasone 2020-04 Yes [id number] 2{spray Use 2 [facility] (FLONASE 1-11 } Sprays in ity of SENSIMIST) 00:00: each [place] 27.5 00 nostril Medical mcg/actuati daily. Branch on nasal spray fluticasone 2020-04 Yes [id number] 2{spray Use 2 [facility] (FLONASE 1-11 } Sprays in ity of SENSIMIST) 00:00: each [place] 27.5 00 nostril Medical mcg/actuati daily. Branch on nasal spray fluticasone 2020-04 Yes [id number] 2{spray Use 2 [facility] (FLONASE 1-11 } Sprays in ity of SENSIMIST) 00:00: each [place] 27.5 00 nostril Medical mcg/actuati daily. Branch on nasal spray omeprazole 2020-04- No [id number] 40mg Take 1 [facility] 40 mg 04-21 capsule by ity of capsule 00:00: 00:00 mouth [place] 00 :00 daily. Medical Branch omeprazole 2020-04- No [id number] 40mg Take 1 [facility] 40 mg 04-21 capsule by ity of capsule 00:00: 00:00 mouth [place] 00 :00 daily. Medical Branch ascorbic 2020-04 Yes [id number] 500mg Take 1 [facility] nivers acid, 04-19 tablet by ity of vitamin C, 00:00: mouth [place] 500 mg 00 daily. Medical tablet Branch ascorbic 2020-04 Yes [id number] 500mg Take 1 U nivers acid, 1-09 tablet by ity of vitamin C, 00:00: mouth [place] 500 mg 00 daily. Medical tablet Branch ascorbic 2020-04 Yes [id number] 500mg Take 1 U nivers acid, 1-09 tablet by ity of vitamin C, 00:00: mouth [place] 500 mg 00 daily. Medical tablet Branch ascorbic 2020-04 Yes [id number] 500mg Take 1 U nivers acid, 1-09 tablet by ity of vitamin C, 00:00: mouth [place] 500 mg 00 daily. Medical tablet Branch ascorbic 2020-04 Yes [id number] 500mg Take 1 U nivers acid, 1-09 tablet by ity of vitamin C, 00:00: mouth [place] 500 mg 00 daily. Medical tablet Branch ascorbic 2020-04 Yes [id number] 500mg Take 1 U nivers acid, 1-09 tablet by ity of vitamin C, 00:00: mouth [place] 500 mg 00 daily. Medical tablet Branch ascorbic 2020-04 Yes [id number] 500mg Take 1 U nivers acid, 1-09 tablet by ity of vitamin C, 00:00: mouth [place] 500 mg 00 daily. Medical tablet Branch ascorbic 2020-04 Yes [id number] 500mg Take 1 U nivers acid, 1-09 tablet by ity of vitamin C, 00:00: mouth [place] 500 mg 00 daily. Medical tablet Branch ascorbic 2020-04 Yes [id number] 500mg Take 1 U nivers acid, 1-09 tablet by ity of vitamin C, 00:00: mouth [place] 500 mg 00 daily. Medical tablet Branch ascorbic 2020-04 Yes [id number] 500mg Take 1 U nivers acid, 1-09 tablet by ity of vitamin C, 00:00: mouth [place] 500 mg 00 daily. Medical tablet Branch ascorbic 2020-04 Yes [id number] 500mg Take 1 U nivers acid, 1-09 tablet by ity of vitamin C, 00:00: mouth [place] 500 mg 00 daily. Medical tablet Branch ascorbic 2020-04 Yes [id number] 500mg Take 1 U nivers acid, 1-09 tablet by ity of vitamin C, 00:00: mouth [place] 500 mg 00 daily. Medical tablet Branch ascorbic 2020-04 Yes [id number] 500mg Take 1 U nivers acid, 1-09 tablet by ity of vitamin C, 00:00: mouth [place] 500 mg 00 daily. Medical tablet Branch ascorbic 2020-04 Yes [id number] 500mg Take 1 U nivers acid, 1-09 tablet by ity of vitamin C, 00:00: mouth [place] 500 mg 00 daily. Medical tablet Branch ascorbic 2020-04 Yes [id number] 500mg Take 1 U nivers acid, 1-09 tablet by ity of vitamin C, 00:00: mouth [place] 500 mg 00 daily. Medical tablet Branch ascorbic 2020-04 Yes [id number] 500mg Take 1 U nivers acid, 1-09 tablet by ity of vitamin C, 00:00: mouth [place] 500 mg 00 daily. Medical tablet Branch ascorbic 2020-04 Yes [id number] 500mg Take 1 U nivers acid, 1-09 tablet by ity of vitamin C, 00:00: mouth [place] 500 mg 00 daily. Medical tablet Branch ascorbic 2020-04 Yes [id number] 500mg Take 1 U nivers acid, 1-09 tablet by ity of vitamin C, 00:00: mouth [place] 500 mg 00 daily. Medical tablet Branch ascorbic 2020-04 Yes [id number] 500mg Take 1 U nivers acid, 1-09 tablet by ity of vitamin C, 00:00: mouth [place] 500 mg 00 daily. Medical tablet Branch ascorbic 2020-04 Yes [id number] 500mg Take 1 U nivers acid, 1-09 tablet by ity of vitamin C, 00:00: mouth [place] 500 mg 00 daily. Medical tablet Branch ascorbic 2020-04 Yes [id number] 500mg Take 1 U nivers acid, 1-09 tablet by ity of vitamin C, 00:00: mouth [place] 500 mg 00 daily. Medical tablet Branch ascorbic 2020-04 Yes [id number] 500mg Take 1 U nivers acid, 1-09 tablet by ity of vitamin C, 00:00: mouth [place] 500 mg 00 daily. Medical tablet Branch ascorbic 2020-04 Yes [id number] 500mg Take 1 U nivers acid, 1-09 tablet by ity of vitamin C, 00:00: mouth [place] 500 mg 00 daily. Medical tablet Branch ascorbic 2020-04 Yes [id number] 500mg Take 1 U nivers acid, 1-09 tablet by ity of vitamin C, 00:00: mouth [place] 500 mg 00 daily. Medical tablet Branch ascorbic 2020-04 Yes [id number] 500mg Take 1 U nivers acid, 1-09 tablet by ity of vitamin C, 00:00: mouth [place] 500 mg 00 daily. Medical tablet Branch ascorbic 2020-04 Yes [id number] 500mg Take 1 U nivers acid, - tablet by ity of vitamin C, 00:00: mouth [place] 500 mg 00 daily. Medical tablet Branch ascorbic 2020-04 Yes [id number] 500mg Take 1 U nivers acid, - tablet by ity of vitamin C, 00:00: mouth [place] 500 mg 00 daily. Medical tablet Branch ascorbic 2020-04 Yes [id number] 500mg Take 1 U nivers acid, 04-19 tablet by ity of vitamin C, 00:00: mouth [place] 500 mg 00 daily. Medical tablet Branch ascorbic 2020-04 Yes [id number] 500mg Take 1 U nivers acid, 04-19 tablet by ity of vitamin C, 00:00: mouth [place] 500 mg 00 daily. Medical tablet Branch ascorbic 2020-04 Yes [id number] 500mg Take 1 U nivers acid, 04-19 tablet by ity of vitamin C, 00:00: mouth [place] 500 mg 00 daily. Medical tablet Branch ascorbic 2020-04- No [id number] 500mg Take 1 [facility] acid, 04-19- tablet by ity of vitamin C, 00:00: 00:00 mouth [place] 500 mg 00 :00 daily. Medical tablet Branch bictegravir 2020- No Asymptomati 1{tbl} QD Take 1 [facility] -emtricitab 10-09 c HIV tablet by [facility] ine-tenofov 00:00: 23:59 infection mouth ir 00 :00 daily for alafenamide 30 days. (BIKTARVY) 50-200-25 mg tablet bictegravir 2020- No Asymptomati 1{tbl} QD Take 1 [facility] -emtricitab 10-09 c HIV tablet by [facility]alth ine-tenofov 00:00: 23:59 infection mouth ir 00 :00 daily for alafenamide 30 days. (BIKTARVY) 50-200-25 mg tablet bictegravir 2020- No Asymptomati 1{tbl} QD Take 1 [facility] -emtricitab 10-09 c HIV tablet by [facility] ealth ine-tenofov 00:00: 23:59 infection mouth ir 00 :00 daily for alafenamide 30 days. (BIKTARVY) 50-200-25 mg tablet bictegravir 2020- No Asymptomati 1{tbl} QD Take 1 [facility] -emtricitab 10-09 c HIV tablet by H ealth ine-tenofov 00:00: 23:59 infection mouth ir 00 :00 daily for alafenamide 30 days. (BIKTARVY) 50-200-25 mg tablet bictegravir 2020- No Asymptomati 1{tbl} QD Take 1 [facility] -emtricitab 10-09 c HIV tablet by H ealth ine-tenofov 00:00: 23:59 infection mouth ir 00 :00 daily for alafenamide 30 days. (BIKTARVY) 50-200-25 mg tablet azithromyci 2020- No COPD 500mg QD Take 2 Alfredo rris n 10-09 exacerbatio tablets by H ealth (ZITHROMAX) 00:00: 23:59 n mouth 250 mg 00 :00 daily for tablet 1 day. azithromyci 2020- No COPD 500mg QD Take 2 Alfredo rris n 10-09 exacerbatio tablets by H ealth (ZITHROMAX) 00:00: 23:59 n mouth 250 mg 00 :00 daily for tablet 1 day. azithromyci 2020- No COPD 500mg QD Take 2 Alfredo rris n 10-09 exacerbatio tablets by H ealth (ZITHROMAX) 00:00: 23:59 n mouth 250 mg 00 :00 daily for tablet 1 day. azithromyci 2020- No COPD 500mg QD Take 2 Alfredo rris n 10-09 exacerbatio tablets by H ealth (ZITHROMAX) 00:00: 23:59 n mouth 250 mg 00 :00 daily for tablet 1 day. azithromyci 2020- No COPD 500mg QD Take 2 Alfredo rris n 10-09 exacerbatio tablets by H ealth (ZITHROMAX) 00:00: 23:59 n mouth 250 mg 00 :00 daily for tablet 1 day. busPIRone 2020-0 Yes 10mg Q.5D Take 10 mg Alfredo rris (BUSPAR) 10 6-30 by mouth 2 He alth mg tablet 15:05: times 30 daily . busPIRone 2020-0 Yes 10mg Q.5D Take 10 mg [facility]ris (BUSPAR) 10 6-30 by mouth 2 He alth mg tablet 15:05: times 30 daily . busPIRone 2020-0 Yes 10mg Q.5D Take 10 mg [facility]o rris (BUSPAR) 10 6-30 by mouth 2 He alth mg tablet 15:05: times 30 daily . busPIRone 2020-0 Yes 10mg Q.5D Take 10 mg Alfredo rris (BUSPAR) 10 6-30 by mouth 2 He alth mg tablet 15:05: times 30 daily . busPIRone 2020-0 Yes 10mg Q.5D Take 10 mg Alfredo rris (BUSPAR) 10 6-30 by mouth 2 He alth mg tablet 15:05: times 30 daily . busPIRone 0 Yes 10mg Q.5D Take 10 mg Alfredo rris (BUSPAR) 10 6-30 by mouth 2 He alth mg tablet 15:05: times 30 daily . budesonide- 2020- No COPD 1{puff} Q.5D Inhale 1 [facility] formoteroL 10-08 exacerbatio Puff by [facility] (SYMBICORT 00:00: 23:59 n mouth HFA) 00 :00 every 12 160-4.5 hours for mcg/actuati 30 days. on inhaler budesonide- 2020- No COPD 1{puff} Q.5D Inhale 1 [facility] formoteroL 10-08 exacerbatio Puff by Health (SYMBICORT 00:00: 23:59 n mouth HFA) 00 :00 every 12 160-4.5 hours for mcg/actuati 30 days. on inhaler budesonide- 2020- No COPD 1{puff} Q.5D Inhale 1 [facility] formoteroL 10-08 exacerbatio Puff by Health (SYMBICORT 00:00: 23:59 n mouth HFA) 00 :00 every 12 160-4.5 hours for mcg/actuati 30 days. on inhaler budesonide- 2020- No COPD 1{puff} Q.5D Inhale 1 [facility] formoteroL 10-08 exacerbatio Puff by Health (SYMBICORT 00:00: 23:59 n mouth HFA) 00 :00 every 12 160-4.5 hours for mcg/actuati 30 days. on inhaler budesonide- 2020- No COPD 1{puff} Q.5D Inhale 1 [place] formoteroL 10-08 exacerbatio Puff by Health (SYMBICORT 00:00: 23:59 n mouth HFA) 00 :00 every 12 160-4.5 hours for mcg/actuati 30 days. on inhaler ipratropium 2020- No COPD 3mL Inhale 3 H arris -albuteroL 10-08 exacerbatio mL by [facility] 0.5 mg-3 00:00: 23:59 n mouth mg(2.5 mg 00 :00 every 6 base)/3 mL hours as Nebu needed for up to 30 days for Shortness of Breath or Wheezing. ipratropium 2020- No COPD 3mL Inhale 3 H arris -albuteroL 10-08 exacerbatio mL by [facility] 0.5 mg-3 00:00: 23:59 n mouth mg(2.5 mg 00 :00 every 6 base)/3 mL hours as Nebu needed for up to 30 days for Shortness of Breath or Wheezing. ipratropium 2020- No COPD 3mL Inhale 3 H arris -albuteroL 10-0830 exacerbatio mL by Health 0.5 mg-3 00:00: 23:59 n mouth mg(2.5 mg 00 :00 every 6 base)/3 mL hours as Nebu needed for up to 30 days for Shortness of Breath or Wheezing. ipratropium 2020- No COPD 3mL Inhale 3 H arris -albuteroL 10-0830 exacerbatio mL by Health 0.5 mg-3 00:00: 23:59 n mouth mg(2.5 mg 00 :00 every 6 base)/3 mL hours as Nebu needed for up to 30 days for Shortness of Breath or Wheezing. ipratropium 2020- No COPD 3mL Inhale 3 H arris -albuteroL 10-08 exacerbatio mL by [facility] 0.5 mg-3 00:00: 23:59 n mouth mg(2.5 mg 00 :00 every 6 base)/3 mL hours as Nebu needed for up to 30 days for Shortness of Breath or Wheezing. predniSONE 2020- No COPD Take 2 Quintin is (DELTASONE) 10-08 exacerbatio tablets by [facility] 20 mg 00:00: 23:59 n mouth tablet 00 :00 daily for 3 days, THEN 1.5 tablets daily for 3 days, THEN 1 tablet daily for 3 days, THEN 0.5 tablets daily for 3 days. predniSONE 2020- No COPD Take 2 Quintin is (DELTASONE) 10-08 exacerbatio tablets by [facility] 20 mg 00:00: 23:59 n mouth tablet 00 :00 daily for 3 days, THEN 1.5 tablets daily for 3 days, THEN 1 tablet daily for 3 days, THEN 0.5 tablets daily for 3 days. predniSONE 2020- No COPD Take 2 Quintin is (DELTASONE) 10-08 exacerbatio tablets by [facility] 20 mg 00:00: 23:59 n mouth tablet 00 :00 daily for 3 days, THEN 1.5 tablets daily for 3 days, THEN 1 tablet daily for 3 days, THEN 0.5 tablets daily for 3 days. predniSONE 2020- No COPD Take 2 Quintin is (DELTASONE) 10-08 exacerbatio tablets by [facility] 20 mg 00:00: 23:59 n mouth tablet 00 :00 daily for 3 days, THEN 1.5 tablets daily for 3 days, THEN 1 tablet daily for 3 days, THEN 0.5 tablets daily for 3 days. predniSONE 2020- No COPD Take 2 Quintin is (DELTASONE) 10-08 exacerbatio tablets by [facility] 20 mg 00:00: 23:59 n mouth tablet 00 :00 daily for 3 days, THEN 1.5 tablets daily for 3 days, THEN 1 tablet daily for 3 days, THEN 0.5 tablets daily for 3 days. dextrometho 2020- No COPD 10mL Take 10 mL [employer] rphan-guaiF 10-08-10 exacerbatio by mouth Health ENesin 00:00: 23:59 n every 6 (GUIATUSS 00 :00 hours as DM) 10-100 needed for mg/5 mL up to 10 syrup days for Cough. dextrometho 2020- No COPD 10mL Take 10 mL [employer] rphan-guaiF 10-08-10 exacerbatio by mouth Health ENesin 00:00: 23:59 n every 6 (GUIATUSS 00 :00 hours as DM) 10-100 needed for mg/5 mL up to 10 syrup days for Cough. dextrometho 2020- No COPD 10mL Take 10 mL [employer] rphan-guaiF 10-08-10 exacerbatio by mouth Health ENesin 00:00: 23:59 n every 6 (GUIATUSS 00 :00 hours as DM) 10-100 needed for mg/5 mL up to 10 syrup days for Cough. dextrometho 2020- No COPD 10mL Take 10 mL [employer] [place] 10-08-10 exacerbatio by mouth Health ENesin 00:00: 23:59 n every 6 (GUIATUSS 00 :00 hours as DM) 10-100 needed for mg/5 mL up to 10 syrup days for Cough. dextrometho 2020- No COPD 10mL Take 10 mL [employer] [place] 10-08-10 exacerbatio by mouth Health ENesin 00:00: 23:59 n every 6 (GUIATUSS 00 :00 hours as DM) 10-100 needed for mg/5 mL up to 10 syrup days for Cough. benzonatate 2020- No COPD 200mg Take 2 Alfredo rris (TESSALON) 10-08 exacerbatio capsules Health 100 mg 00:00: 23:59 n by mouth 3 capsule 00 :00 times daily for 7 days. benzonatate 2020- No COPD 200mg Take 2 Alfredo rris (TESSALON) 10-08 exacer[facility] capsules Health 100 mg 00:00: 23:59 n by mouth 3 capsule 00 :00 times daily for 7 days. benzonatate 2020- No COPD 200mg Take 2 Alfredo [facility]ris (TESSALON) 10-08 [facility] capsules Health 100 mg 00:00: 23:59 n by mouth 3 capsule 00 :00 times daily for 7 days. benzonatate 2020- No COPD 200mg Take 2 [facility] (TESSALON) 10-08 [facility] capsules Health 100 mg 00:00: 23:59 n by mouth 3 capsule 00 :00 times daily for 7 days. benzonatate 2020- No COPD 200mg Take 2 [facility] (TESSALON) 10-08 [facility] capsules Health 100 mg 00:00: 23:59 n by mouth 3 capsule 00 :00 times daily for 7 days. budesonide- 2020- No COPD 1{puff} Q.5D Inhale 1 [facility] formoteroL 10-08 ex[facility]batio Puff by Health (SYMBICORT 00:00: 00:00 n mouth HFA) 00 :00 every 12 160-4.5 hours for mcg/actuati 30 days. on inhaler budesonide- 2020- No COPD 1{puff} Q.5D Inhale 1 [facility] formoteroL 10-0830 [facility] Puff by Health (SYMBICORT 00:00: 00:00 n mouth HFA) 00 :00 every 12 160-4.5 hours for mcg/actuati 30 days. on inhaler budesonide- 2020- No COPD 1{puff} Q.5D Inhale 1 [facility] formoteroL 10-0830 [facility] Puff by Health (SYMBICORT 00:00: 00:00 n mouth HFA) 00 :00 every 12 160-4.5 hours for mcg/actuati 30 days. on inhaler budesonide- 2020- No COPD 1{puff} Q.5D Inhale 1 [facility] formoteroL 10-0830 [facility] Puff by [facility] (SYMBICORT 00:00: 00:00 n mouth HFA) 00 :00 every 12 160-4.5 hours for mcg/actuati 30 days. on inhaler budesonide- 2020- No COPD 1{puff} Q.5D Inhale 1 [facility] formoteroL 6-30 06-30 [facility]acer[facility] Puff by [facility] (SYMBICORT 00:00: 00:00 n mouth HFA) 00 :00 every 12 160-4.5 hours for mcg/actuati 30 days. on inhaler OMEPRAZOLE Yes Gastroesoph TAKE ONE [facility] 40 mg 5-07 ageal CAPSULE BY ity of capsule 00:00: reflux MOUTH [place] 00 disease EVERY DAY Medical Branch albuterol Yes Chronic 2.5mg Inhale 3 [facility] 2.5 mg /3 4-24 obstructive mL every 4 ity of mL (0.083 00:00: pulmonary (four) [place] 00 disease hours. May Medica l nebulizer with acute also Bran ch solution exacerbatio nebulize n one extra every 6 hours. bictegrav-e Yes Symptomatic 1 po once [facility] mtricit-ten 3-30 HIV daily ity of ofov [place] 00:00: [place] (BIKTARVY[place] 00 Medical 50-200-25 Branch mg tablet benzonatate Yes 100mg Take 1 [facility] vers 100 mg 3-04 capsule by ity of capsule 00:00: mouth 3 [place] 00 (three) Medical times Branch daily as needed for Cough. albuterol Yes Stage 3 2{puff} Inhale 2 [facility] (PROAIR 2-01 severe COPD Puffs ity of HFA) 90 00:00: by GOLD every 4 [place] mcg/actuati 00 classificat (four) Medical on inhaler ion hours as Branc h needed for Wheezing or Shortness of Breath. budesonide- Yes Stage 3 2{puff} Inhale 2 [facility] formoteroL 2-01 severe COPD Puffs 2 ity of (SYMBICORT) 00:00: by GOLD (two[place] 80-4.5 00 classificat times Medic al mcg/actuati ion daily. Branch on inhaler budesonide- Yes 2{puff} Inhale [address] [facility] formoteroL 9-29 puffs [facility] (SYMBICORT) 00:00: mouth via M edical 80-4.5 00 inhaler. [place] mcg/actuati on inhaler busPIRone 2020-0 Yes 10mg Take [address] [facility] (BUSPAR) 10 9-29 by mouth. Comfort es MG tablet 00:00: Medical 00 Center fluticasone 2020-0 Yes 2{spray [address] [facility] (FLONASE 9-29 } by Nasal [facility]) 00:00: route. Medic al 27.5 00 [place] mcg/actuati on nasal spray montelukast 2020-0 Yes 10mg Take [address] [facility] (SINGULAIR) 9-29 by mouth. Comfort es 10 mg 00:00: Medical tablet 00 Center montelukast 2020-0 Yes 10mg Take [address] [facility] (SINGULAIR) 9-29 by mouth. Comfort es 10 mg 00:00: Medical tablet 00 [place] albuterol 2019-0 Yes 2{puff} Inhale [address] HFA 9-29 puffs [facility] (VENTOLIN 00:00: mouth via Med ical HFA) 90 00 inhaler. [place] mcg/actuati on inhaler ascorbic 2019-0 Yes 500mg Take [address] [facility] acid, 9-29 mg by [facility] vitamin C, 00:00: mouth. Medic al (VITAMIN C) 00 Center 500 MG tablet aspirin 81 2019-0 Yes 81mg Take [address] MG chewable 9-29 by mouth. Comfort es tablet 00:00: Medical 00 [place] benzonatate 2019-0 Yes 200mg Take [address] (TESSALON) 9-29 mg by [facility] 200 MG 00:00: mouth. Medical capsule 00 Center budesonide- 2019-0 Yes 2{puff} Inhale [address] [facility] formoteroL 9-29 puffs by [facility] (SYMBICORT) 00:00: mouth via M edical 80-4.5 00 inhaler. [place] mcg/actuati on inhaler busPIRone 2020-0 Yes 10mg Take [address] [facility] [address] [facility] (BUSPAR) 10 9-29 by mouth. Comfort es MG tablet 00:00: Medical 00 Center fluticasone 2020-0 Yes 2{spray [address] [facility] (FLONASE 9-29 } by Nasal [facility]) 00:00: route. Medic al 27.5 00 [place] mcg/actuati on nasal spray montelukast 2020-0 Yes 10mg Take [address] [facility] (SINGULAIR) 9-29 by mouth. Comfort es 10 mg 00:00: Medical tablet 00 Center albuterol 2020-0 Yes 2{puff} Inhale [address] HFA 9-29 puffs by [facility] (VENTOLIN 00:00: mouth via Med ical HFA) 90 00 inhaler. Center mcg/actuati on inhaler ascorbic 2020-0 Yes 500mg Take [address] [facility] acid, 9-29 mg by [facility] vitamin C, 00:00: mouth. Medic al (VITAMIN C) 00 Center 500 MG tablet aspirin 81 2020-0 Yes 81mg Take [address] MG chewable 9-29 by mouth. Comfort es tablet 00:00: Medical 00 Center albuterol 2020-0 Yes 2{puff} Inhale [address] HFA 9-29 puffs by [facility] (VENTOLIN 00:00: mouth via Med ical HFA) 90 00 inhaler. [place] mcg/actuati on inhaler ascorbic 2020-0 Yes 500mg Take [address] [facility] acid, 9-29 mg by [facility] vitamin C, 00:00: mouth. Medic al (VITAMIN C) 00 Center 500 MG tablet aspirin 81 2020-0 Yes 81mg Take [address] MG chewable 9-29 by mouth. Comfort es tablet 00:00: Medical 00 Center benzonatate 2020-0 Yes 200mg Take [address] (TESSALON) 9-29 mg by [facility] 200 MG 00:00: mouth. Medical capsule 00 Center budesonide- 2020-0 Yes 2{puff} Inhale [address] [facility] formoteroL 9-29 puffs by [facility] (SYMBICORT) 00:00: mouth via M edical 80-4.5 00 inhaler. [place] mcg/actuati on inhaler busPIRone 2020-0 Yes 10mg Take [address] [facility] [address] [facility] (BUSPAR) 10 9-29 by mouth. Comfort es MG tablet 00:00: Medical 00 Center benzonatate 2020-0 Yes 200mg Take [address] (TESSALON) 9-29 mg by [facility] 200 MG 00:00: mouth. Medical capsule 00 Center fluticasone 2020-0 Yes 2{spray [address] [facility] (FLONASE 9-29 } by Nasal [facility] SENSIM[facility]) 00:00: route. Medic al 27.5 00 Center mcg/actuati on nasal spray montelukast 2020-0 Yes 10mg Take [address] [facility] (SINGULAIR) 9-29 by mouth. Comfort es 10 mg 00:00: Medical tablet 00 Center budesonide- 2020-0 Yes 2{puff} Inhale [address] [facility] formoteroL 9-29 puffs by [employer] (SYMBICORT) 00:00: mouth via M edical 80-4.5 00 inhaler. Center mcg/actuati on inhaler albuterol 2020-0 Yes 2{puff} Inhale [address] HFA 9-29 puffs by [facility] (VENTOLIN 00:00: mouth via Med ical HFA) 90 00 inhaler. [place] mcg/actuati on inhaler ascorbic 2020-0 Yes 500mg Take [address] [facility] [address] acid, 9-29 mg by [employer] vitamin C, 00:00: mouth. Medic al (VITAMIN C) 00 Center 500 MG tablet busPIRone 2019-0 Yes 10mg Take [address] [facility] [address] [facility] (BUSPAR) 10 9-29 by mouth. Comfort es MG tablet 00:00: Medical 00 [place] aspirin 81 2020-0 Yes 81mg Take 1 Unive rs mg chewable 9-29 tablet by ity of tablet 00:00: mouth [place] 00 daily. Medical Branch aspirin 81 2020-0 Yes 81mg Take [address] MG chewable 9-29 by mouth. Comfort es tablet 00:00: Medical 00 [place] aspirin 81 2020-0 Yes 81mg Take 1 Unive rs mg chewable 9-29 tablet by ity of tablet 00:00: mouth [place] 00 daily. Medical Branch aspirin 81 2020-0 Yes 81mg Take 1 [facility] rs mg chewable 9-29 tablet by ity of tablet 00:00: mouth [place] 00 daily. Medical Branch aspirin 81 2020-0 Yes 81mg Take 1 [facility] rs mg chewable 9-29 tablet by ity of tablet 00:00: mouth [place] 00 daily. Medical Branch aspirin 81 2020-0 Yes 81mg Take 1 [facility] rs mg chewable 9-29 tablet by ity of tablet 00:00: mouth [place] 00 daily. Medical Branch aspirin 81 2020-0 Yes 81mg Take 1 [facility] rs mg chewable 9-29 tablet by ity of tablet 00:00: mouth [place] 00 daily. Medical Branch aspirin 81 2020-0 Yes 81mg Take 1 [facility] rs mg chewable 9-29 tablet by ity of tablet 00:00: mouth [place] 00 daily. Medical Branch aspirin 81 2020-0 Yes 81mg Take 1 [facility] rs mg chewable 9-29 tablet by ity of tablet 00:00: mouth [place] 00 daily. Medical Branch aspirin 81 2020-0 Yes 81mg Take 1 [facility] rs mg chewable 9-29 tablet by ity of tablet 00:00: mouth [place] 00 daily. Medical Branch aspirin 81 2020-0 Yes 81mg Take 1 [facility] rs mg chewable 9-29 tablet by ity of tablet 00:00: mouth [place] 00 daily. Medical Branch aspirin 81 2020-0 Yes 81mg Take 1 Un[facility] rs mg chewable 9-29 tablet by ity of tablet 00:00: mouth [place] 00 daily. Medical Branch aspirin 81 2020-0 Yes 81mg Take 1 [facility] rs mg chewable 9-29 tablet by ity of tablet 00:00: mouth [place] 00 daily. Medical Branch aspirin 81 2020-0 Yes 81mg Take 1 [facility] rs mg chewable 9-29 tablet by ity of tablet 00:00: mouth [place] 00 daily. Medical Branch aspirin 81 2020-0 Yes 81mg Take 1 [facility] rs mg chewable 9-29 tablet by ity of tablet 00:00: mouth [place] 00 daily. Medical Branch aspirin 81 2020-0 Yes 81mg Take 1 [facility] rs mg chewable 9-29 tablet by ity of tablet 00:00: mouth [place] 00 daily. Medical Branch aspirin 81 2020-0 Yes 81mg Take 1 [facility] rs mg chewable 9-29 tablet by ity of tablet 00:00: mouth [place] 00 daily. Medical Branch aspirin 81 2020-0 Yes 81mg Take 1 [facility] rs mg chewable 9-29 tablet by ity of tablet 00:00: mouth [place] 00 daily. Medical Branch aspirin 81 2020-0 Yes 81mg Take 1 [facility] mg chewable 9-29 tablet by ity of tablet 00:00: mouth [place] 00 daily. Medical Branch aspirin 81 2020-0 Yes 81mg Take 1 [facility] mg chewable 9-29 tablet by ity of tablet 00:00: mouth [place] 00 daily. Medical Branch aspirin 81 2020-0 Yes 81mg Take 1 [facility] mg chewable 9-29 tablet by ity of tablet 00:00: mouth [place] 00 daily. Medical Branch aspirin 81 2020-0 Yes 81mg Take 1 [facility] mg chewable 9-29 tablet by ity of tablet 00:00: mouth [place] 00 daily. Medical Branch benzonatate 2020-0 Yes 200mg Take [address] (TESSALON) 9-29 [facility] 200 MG 00:00: mouth. Medical capsule [address] [place] [address] aspirin 81 2020-0 Yes 81mg Take 1 Unive rs mg chewable 9-29 tablet by ity of tablet 00:00: mouth [place] 00 daily. Medical Branch aspirin 81 2020-0 Yes 81mg Take 1 [facility] rs mg chewable 9-29 tablet by ity of tablet 00:00: mouth [place] 00 daily. Medical Branch aspirin 81 2020-0 Yes 81mg Take 1 [facility] rs mg chewable 9-29 tablet by ity of tablet 00:00: mouth [place] 00 daily. Medical Branch aspirin 81 2020-0 Yes 81mg Take 1 [facility] mg chewable 9-29 tablet by ity of tablet 00:00: mouth [place] 00 daily. Medical Branch aspirin 81 2020-0 Yes 81mg Take 1 [facility] mg chewable 9-29 tablet by ity of tablet 00:00: mouth [place] 00 daily. Medical Branch aspirin 81 2020-0 Yes 81mg Take 1 [facility] mg chewable 9-29 tablet by ity of tablet 00:00: mouth [place] 00 daily. Medical Branch aspirin 81 2020-0 Yes 81mg Take 1 [facility] mg chewable 9-29 tablet by ity of tablet 00:00: mouth [place] 00 daily. Medical Branch aspirin 81 2020-0 Yes 81mg Take 1 [facility] mg chewable 9-29 tablet by ity of tablet 00:00: mouth [place] 00 daily. Medical Branch aspirin 81 2020-0 Yes 81mg Take 1 [facility] mg chewable 9-29 tablet by ity of tablet 00:00: mouth [place] 00 daily. Medical Branch aspirin 81 2020-0 Yes 81mg Take 1 [facility] rs mg chewable 9-29 tablet by ity of tablet 00:00: mouth [place] 00 daily. Medical Branch budesonide- 2020-0 Yes 2{puff} Inhale [address] [facility] formoteroL 9-29 puffs [facility] (SYMBICORT) [facility] inhaler. Center mcg/actuati on inhaler aspirin 81 2020-0 Yes 81mg Take 1 Unive rs mg chewable 9-29 tablet by ity of tablet 00:00: mouth [place] 00 daily. Medical Branch busPIRone 2020-0 Yes 10mg Take [address] [facility] [address] [facility] (BUSPAR) 10 9-29 by mouth. Comfort es MG tablet 00:00: Medical 00 Center fluticasone 2020-0 Yes 2{spray [address] [facility] (FLONASE 9-29 } by Nasal [facility]) 00:00: route. Medic al 27.5 00 Center mcg/actuati on nasal spray montelukast 2019-0 Yes 10mg Take [address] [facility] (SINGULAIR) 9-29 by mouth. Comfort es 10 mg 00:00: Medical tablet 00 Center fluticasone 2020-0 Yes 2{spray [address] [facility] (FLONASE 9-29 } by Nasal [facility]) 00:00: route. Medic al 27.5 00 Center mcg/actuati on nasal spray montelukast 2020-0 Yes 10mg Take [address] [facility] (SINGULAIR) 9-29 by mouth. Comfort es 10 mg 00:00: Medical tablet 00 Center albuterol 2019-0 Yes 2{puff} Inhale [address] HFA 9-29 puffs [facility] (VENTOLIN 00:00: mouth via Med ical HFA) 90 00 inhaler. [place] mcg/actuati on inhaler ascorbic 2019-0 Yes 500mg Take [address] [facility] acid, 9-29 mg by [facility] vitamin C, 00:00: mouth. Medic al (VITAMIN C) 00 Center 500 MG tablet aspirin 81 2019-0 Yes 81mg Take [address] MG chewable 9-29 by mouth. Comfort es tablet 00:00: Medical 00 Center benzonatate 2019-0 Yes 200mg Take [address] (TESSALON) 9-29 mg by [facility] 200 MG 00:00: mouth. Medical capsule 00 Center budesonide- 2019-0 Yes 2{puff} Inhale [address] [facility] formoteroL 9-29 puffs by [facility] (SYMBICORT) 00:00: mouth via M edical 80-4.5 00 inhaler. Center mcg/actuati on inhaler busPIRone 2019-0 Yes 10mg Take [address] [facility] [address] [facility] (BUSPAR) 10 9-29 by mouth. Comfort es MG tablet 00:00: Medical 00 Center ascorbic 2020-0 Yes Stage 3 500mg Take 1 [facility] vers acid, 9-29 severe COPD tablet by it y of vitamin C, 00:00: by GOLD mouth [place] 500 mg 00 classificat daily. Medi coco tablet ion Branch montelukast 2019-0 Yes Stage 3 10mg Take 1 U nivers 10 mg 9-29 severe COPD tablet by it y of tablet 00:00: [place] classificat bedtime. Medi coco ion Branch fluticasone 2019-0 Yes Stage 3 2{spray Use 2 [facility] (FLONASE 9-29 severe COPD } Sprays in ity of SENSIMIST) 00:00: by GOLD each [place] 27.5 00 classificat nostril Medic al mcg/actuati ion daily. Branch on nasal spray busPIRone 2019-0 Yes Anxiety 10mg Take 1 [facility] vers 10 mg 9-29 tablet by ity of tablet 00:00: mouth 2 [place] 00 (two) Medical times Branch daily. aspirin 81 2020-0 Yes 81mg Take 1 Unive rs mg chewable 9-29 tablet by ity of tablet 00:00: mouth [place] 00 daily. Medical Branch albuterol 2019-0 Yes 2{puff} Inhale [address] HFA 9-29 puffs [facility] (VENTOLIN 00:00: mouth via Med ical HFA) 90 00 inhaler. Center mcg/actuati on inhaler ascorbic 2020-0 Yes 500mg Take [address] [facility] acid, 9-29 mg by [facility] vitamin C, 00:00: mouth. Medic al (VITAMIN C) 00 Center 500 MG tablet aspirin 81 2020-0 Yes 81mg Take [address] MG chewable 9-29 by mouth. Comfort es tablet 00:00: Medical 00 Center benzonatate 2019-0 Yes 200mg Take [address] (TESSALON) 9-29 mg by [facility] 200 MG 00:00: mouth. Medical capsule 00 Center fluticasone 2020-0 Yes 2{spray [address] [facility] (FLONASE 9-29 } by Nasal [facility]) 00:00: route. Medic al 27.5 00 Center mcg/actuati on nasal spray ergocalcife 2020-0 Yes [id number] Take [facility] rol 9-23 50,000 [facility] (ERGOCALCIF 00:00: Units by Me dical BENITA) 1,250 00 mouth. Center mcg (50,000 unit) capsule ergocalcife 2020-0 Yes [id number] Take [facility] ro[facility] 9-23 50,000 [facility] (ERGOCALCIF 00:00: Units by Me dical BENITA) 1,250 00 mouth. Center mcg (50,000 unit) capsule ergocalcife 2020-0 Yes [id number] Take [facility] rol 9-23 50,000 [facility] (ERGOCALCIF 00:00: Units by Me dical BENITA) 1,250 00 mouth. Center mcg (50,000 unit) capsule ergocalcife 2020-0 Yes [id number] Take [facility] rol 9-23 50,000 [facility] (ERGOCALCIF 00:00: Units by Me dical BENITA) 1,250 00 mouth. Center mcg (50,000 unit) capsule ergocalcife 2020-0 Yes [id number] Take [facility] rol 9-23 50,000 [facility] (ERGOCALCIF 00:00: Units by Me dical BENITA) 1,250 00 mouth. Center mcg (50,000 unit) capsule ergocalcife 2020-0 Yes [id number] [facility] ro[facility] 9-23 50,000 [facility] (ERGOCALCIF 00:00: Units by Me dical BENITA) 1,250 00 mouth. Center mcg (50,000 unit) capsule ergocalcife 2020-0 Yes Chronic [id number] Take 1 [facility] rol, 9-23 obstructive capsule by it y of vitamin d2, 00:00: pulmonary mouth [place] 1,250 mcg 00 disease, weekly. Med ical (50,000 unspecified Branc h unit) COPD type capsule codeine-gua 2020-0 Yes 10mL Take [address] [facility] ifenesin 9-18 mLs by [facility] (GUAIFENESI 00:00: mouth. Medi coco N AC) 00 Center 10-100 mg/5 mL liquid codeine-gua 2020-0 Yes 10mL Take [address] [facility] ifenesin 9-18 mLs by [facility] (GUAIFENESI 00:00: mouth. Medi coco N AC) 00 Center 10-100 mg/5 mL liquid ipratropium 2020-0 Yes 3mL Inhale [address] [facility] [address] [facility] -albuteroL 9-18 mLs by [facility] (DUO-NEB) 00:00: mouth via Med ical 0.5 mg-3 00 inhaler. Center mg(2.5 mg base)/3 mL nebulizer solution ipratropium 2020-0 Yes 3mL Inhale [address] -albuteroL 9-18 mLs by [facility] (DUO-NEB) 00:00: mouth via Med ical 0.5 mg-3 00 inhaler. Center mg(2.5 mg base)/3 mL nebulizer solution codeine-gua 2020-0 Yes 10mL Take [address] [facility] ifenesin 9-18 mLs by [facility] (GUAIFENESI 00:00: mouth. Medi coco N AC) 00 Center 10-100 mg/5 mL liquid ipratropium 2020-0 Yes 3mL Inhale [address] -albuteroL 9-18 mLs by [facility] (DUO-NEB) 00:00: mouth via Med ical 0.5 mg-3 00 inhaler. Center mg(2.5 mg base)/3 mL nebulizer solution codeine-gua 2020-0 Yes 10mL Take [address] [facility] ifenesin 9-18 mLs by [facility] (GUAIFENESI 00:00: mouth. Medi coco N AC) 00 Center 10-100 mg/5 mL liquid ipratropium 2020-0 Yes 3mL Inhale [address] -albuteroL 9-18 mLs by [facility] (DUO-NEB) 00:00: mouth via Med ical 0.5 mg-3 00 inhaler. Center mg(2.5 mg base)/3 mL nebulizer solution codeine-gua 2020-0 Yes 10mL Take [address] [facility] ifenesin 9-18 mLs by [facility] (GUAIFENESI 00:00: mouth. Medi coco N AC) 00 Center 10-100 mg/5 mL liquid ipratropium 2020-0 Yes 3mL Inhale [address] -albuteroL 9-18 mLs by [facility] (DUO-NEB) 00:00: mouth via Med ical 0.5 mg-3 00 inhaler. Center mg(2.5 mg base)/3 mL nebulizer solution codeine-gua 2020-0 Yes 10mL Take [address] [facility] ifenesin 9-18 mLs by [facility] (GUAIFENESI 00:00: mouth. Medi coco N AC) 00 Center 10-100 mg/5 mL liquid ipratropium 2020-0 Yes 3mL Inhale [address] -albuteroL 9-18 mLs by [facility] (DUO-NEB) 00:00: mouth via Med ical 0.5 mg-3 00 inhaler. Center mg(2.5 mg base)/3 mL nebulizer solution ipratropium 2020-0 Yes Stage 3 3mL Inhale 3 [facility] -albuteroL 9-18 severe COPD mL every 4 ity of 0.5 mg-3 00:00: by GOLD (four) [place] mg(2.5 mg 00 classificat hours as Medical base)/3 mL ion needed for Bra count includes the [facility] nebulizer Wheezing solution or Shortness of Breath. tiotropium 2020-0 Yes 18ug Inhale [address] [facility] (SPIRIVA) 6-08 mcg by [facility] 18 mcg 00:00: mouth via Medica l inhalation 00 inhaler. Cente r capsule tiotropium 2020-0 Yes 18ug Inhale [address] [facility] (SPIRIVA) 6-08 mcg [facility] 18 mcg 00:00: mouth via Medica l inhalation 00 inhaler. Cente r capsule tiotropium 2020-0 Yes 18ug Inhale [address] [facility] (SPIRIVA) 6-08 mcg by [facility] 18 mcg 00:00: mouth via Medica l inhalation 00 inhaler. Cente r capsule tiotropium 2020-0 Yes 18ug Inhale [address] (SPIRIVA) 6-08 mcg by [facility] 18 mcg 00:00: mouth via Medica l inhalation 00 inhaler. Cente r capsule tiotropium 2020-0 Yes 18ug Inhale [address] (SPIRIVA) 6-08 mcg by [facility] 18 mcg 00:00: mouth via Medica l inhalation 00 inhaler. Cente r capsule tiotropium 2020-0 Yes 18ug Inhale [address] (SPIRIVA) 6-08 mcg by [facility] 18 mcg 00:00: mouth via Medica l inhalation 00 inhaler. Cente r capsule tiotropium 2020-0 Yes Stage 3 18ug Inhale 1 [facility] 18 mcg 6-08 severe COPD capsule ity of inhalation 00:00: [place]. [place] 00 classificat [facility] Branch omeprazole 2020-0 Yes 40mg Take [address] (PRILOSEC) 4-24 by mouth. [place] [facility] 40 MG 00:00: Medical capsule 00 Center bictegrav-e 2020-0 Yes [address] [facility] mtricit-ten 4-24 daily [facility] 00:00: Medical (BIKTARVY) 00 Center 50-200-25 mg Tab 50-200-25 mg bictegrav-e 2020-0 Yes [address] [facility] mtricit-ten 4-24 daily [facility] ofov 00:00: Medical (KTARVY) 00 Center 50-200-25 mg Tab 50-200-25 mg omeprazole 2020-0 Yes 40mg Take [address] (PRILOSEC) 4-24 by mouth. [facility] 40 MG 00:00: Medical capsule 00 Center omeprazole 2020-0 Yes 40mg Take [address] (PRILOSEC) 4-24 by mouth. [facility] 40 MG 00:00: Medical capsule 00 Center bictegrav-e 2020-0 Yes [address] [facility] mtricit-ten 4-24 daily [facility] of[facility] 00:00: Medical (KTARVY) 00 Center 50-200-25 mg Tab 50-200-25 mg omeprazole 2020-0 Yes 40mg Take [address] (PRILOSEC) 4-24 by mouth. [facility] 40 MG 00:00: Medical capsule 00 Center bictegrav-e 2020-0 Yes [address] [facility] mtricit-ten 4-24 daily [facility] ofov 00:00: Medical (BIKTARVY) 00 Center 50-200-25 mg Tab 50-200-25 mg omeprazole 2020-0 Yes 40mg Take [address] (PRILOSEC) 4-24 by mouth. [facility] 40 MG 00:00: Medical capsule 00 Center bictegrav-e 2020-0 Yes [address] [facility] mtricit-ten 4-24 daily [facility] ofov 00:00: Medical (BIKTARVY) 00 Center 50-200-25 mg Tab 50-200-25 mg bictegrav-e 2020-0 Yes [address] [facility] mtricit-ten 4-24 daily [facility] of[facility] 00:00: Medical (BIKTARVY) 00 [place] 50-200-25 mg Tab 50-200-25 mg omeprazole 2019-0 Yes 40mg Take [address] (PRILOSEC) 4-24 by mouth. [facility] 40 MG 00:00: Medical capsule 00 [place] omeprazole 0 2020- No Gastroesoph 40mg Take 1 [facility] 40 mg 4-24 - ageal capsule by ity of capsule 00:00: 00:00 reflux mouth [place] 00 :00 disease, daily. Medical esophagitis Branch presence not specified citalopram 0 Yes 40mg Take [address] (CELEXA) 40 3-26 by mouth. Comfort es MG tablet 00:00: Medical 00 [place] citalopram 0 Yes 40mg Take [address] (CELEXA) 40 3-26 by mouth. Comfort es MG tablet 00:00: Medical 00 [place] citalopram 2019-0 Yes 40mg Take [address] (CELEXA) 40 3-26 by mouth. Comfort es MG tablet 00:00: Medical 00 [place] citalopram 0 Yes 40mg Take [address] (CELEXA) 40 3-26 by mouth. Comfort es MG tablet 00:00: Medical 00 [place] citalopram 2020-0 Yes 40mg Take [address] (CELEXA) 40 3-26 by mouth. Comfort es MG tablet 00:00: Medical 00 [place] citalopram 20200 Yes 40mg Take [address] (CELEXA) 40 3-26 by mouth. Comfort es MG tablet 00:00: Medical 00 [place] Immunizations Ordered Immunization Filled Immunization Date Status Commen ts Source Name Name Remdesivir 2021-08-06 Completed [facility] 00:00:00 [facility] Remdesivir 2021-08-06 Completed [facility] 00:00: [facility] Remdesivir 2021-08-06 Completed [facility] 00:00:00 [facility] Remdesivir 2021-08-06 Completed [facility] of 00:00:00 [facility] Remdesivir 2021-08-06 Completed University of 00:00:00 [facility] Remdesivir 2021-08-06 Completed [facility] 00:00:00 [place] [facility] Remdesivir 2021-08-06 Completed [facility] 00:00:00 [facility] Remdesivir 2021-08-06 Completed [facility] 00:00:00 [place] [facility] Remdesivir 2021-08-06 Completed [facility] of 00:00:00 [facility] Remdesivir 2021-08-06 Completed [facility] 00:00:00 [place] [facility] Remdesivir 2021-08-06 Completed [facility] 00:00:00 [place] [facility] Remdesivir 2021-08-06 Completed [facility] 00:00:00 [place] [facility] Remdesivir 2021-08-06 Completed [facility] 00:00:00 [place] [facility] Remdesivir 2021-08-06 Completed [facility] 00:00:00 [place] [facility] Remdesivir 2021-08-06 Completed [facility] of 00:00:00 [place] [facility] Remdesivir 2021-08-06 Completed University of 00:00:00 [place] [facility] Remdesivir 2021-08-06 Completed University of 00:00:00 [place] [facility] Remdesivir 2021-08-06 Completed University of 00:00:00 [place] [facility] Remdesivir 2021-08-06 Completed University of 00:00:00 [place] [facility] Remdesivir 2021-08-06 Completed University of 00:00:00 [place] [facility] Remdesivir 2021-08-06 Completed University of 00:00:00 [place] [facility] Remdesivir 2021-08-06 Completed University of 00:00:00 [place] [facility] Remdesivir 2021-08-06 Completed University of 00:00:00 [place] [facility] Remdesivir 2021-08-06 Completed University of 00:00:00 [place] [facility] Remdesivir 2021-08-06 Completed University of 00:00:00 [place] [facility] Remdesivir 2021-08-06 Completed University of 00:00:00 [place] [facility] Remdesivir 2021-08-06 Completed University of 00:00:00 [place] [facility] Remdesivir 2021-08-06 Completed University of 00:00:00 [place] [facility] Remdesivir 2021-08-06 Completed [facility] of 00:00:00 [place] [facility] Remdesivir 2021-08-06 Completed University of 00:00:00 [place] [facility] Remdesivir 2021-08-06 Completed University of 00:00:00 [place] [facility] Remdesivir 2021-08-06 Completed University of 00:00:00 [place] [facility] Remdesivir 2021-08-05 Completed University of 00:00:00 [place] [facility] Remdesivir 2021-08-05 Completed University of 00:00:00 Medical Branch Remdesivir 2021-08-05 Completed [facility] 00:00:00 [facility] Remdesivir 2021-08-05 Completed [facility] 00:00:00 [facility] Remdesivir 2021-08-05 Completed [facility] 00:00:00 [facility] Remdesivir 2021-08-05 Completed [facility] 00:00:00 [facility] Remdesivir 2021-08-05 Completed [facility] 00:00:00 [facility] Remdesivir 2021-08-05 Completed [facility] 00[facility]00:00 [facility] Remdesivir 2021-08-05 Completed [facility] 00:00:00 [facility] Remdesivir 2021-08-05 Completed [facility] 00:00:00 [facility] Remdesivir 2021-08-05 Completed [facility] 00:00:00 [facility] Remdesivir 2021-08-05 Completed [facility] 00:00:00 [facility] Remdesivir 2021-08-05 Completed [facility] 00:00:00 [facility] Remdesivir 2021-08-05 Completed [facility] 00:00:00 [facility] Remdesivir 2021-08-05 Completed [facility] 00:00:00 [facility] Remdesivir 2021-08-05 Completed [facility] 00:00:00 [facility] Remdesivir 2021-08-05 Completed [facility] 00:00:00 [facility] Remdesivir 2021-08-05 Completed [facility] 00:00:00 [facility] Remdesivir 2021-08-05 Completed [facility] 00:00:00 [facility] Remdesivir 2021-08-05 Completed [facility] 00:00:00 [facility] Remdesivir 2021-08-05 Completed [facility] 00:00:00 [facility] Remdesivir 2021-08-05 Completed [facility] 00:00:00 [facility] Remdesivir 2021-08-05 Completed [facility] 00:00:00 [facility] Remdesivir 2021-08-05 Completed [facility] 00:00:00 [facility] Remdesivir 2021-08-05 Completed [facility] 00:00:00 [facility] Remdesivir 2021-08-05 Completed [facility] 00:00:00 [facility] Remdesivir 2021-08-05 Completed [facility] 00:00:00 [facility] Remdesivir 2021-08-05 Completed [facility] 00[facility]00:00 [facility] Remdesivir 2021-08-05 Completed [facility] 00:00:00 [facility] Remdesivir 2021-08-05 Completed [facility] 00:00:00 [facility] Remdesivir 2021-08-05 Completed [facility] 00:00:00 [facility] Remdesivir 2021-08-05 Completed [facility] 00:00:00 [facility] Remdesivir 2021-08-04 Completed [facility] 00:00:00 [facility] Remdesivir 2021-08-04 Completed [facility] 00:00:00 [facility] Remdesivir 2021-08-04 Completed [facility] 00:00:00 [facility] Remdesivir 2021-08-04 Completed [facility] 00:00:00 [facility] Remdesivir 2021-08-04 Completed [facility] 00:00:00 [facility] Remdesivir 2021-08-04 Completed [facility] 00:00:00 [facility] Remdesivir 2021-08-04 Completed [facility] 00:00:00 [facility] Remdesivir 2021-08-04 Completed [facility] 00:00:00 [facility] Remdesivir 2021-08-04 Completed [facility] 00:00:00 [facility] Remdesivir 2021-08-04 Completed [facility] 00:00:00 [facility] Remdesivir 2021-08-04 Completed [facility] 00:00:00 [facility] Remdesivir 2021-08-04 Completed [facility] 00:00:00 [facility] Remdesivir 2021-08-04 Completed [facility] 00:00:00 [facility] Remdesivir 2021-08-04 Completed [facility] 00:00:00 [facility] Remdesivir 2021-08-04 Completed [facility] 00:00:00 [facility] Remdesivir 2021-08-04 Completed [facility] 00:00:00 [facility] Remdesivir 2021-08-04 Completed [facility] 00:00:00 [facility] Remdesivir 2021-08-04 Completed [facility] 00:00:00 [facility] Remdesivir 2021-08-04 Completed [facility] 00:00:00 [facility] Remdesivir 2021-08-04 Completed [facility] 00:00:00 [facility] Remdesivir 2021-08-04 Completed [facility] 00:00:00 [facility] Remdesivir 2021-08-04 Completed [facility] 00:00:00 [facility] Remdesivir 2021-08-04 Completed [facility] 00:00:00 [facility] Remdesivir 2021-08-04 Completed [facility] 00:00:00 [facility] Remdesivir 2021-08-04 Completed [facility] 00:00:00 [facility] Remdesivir 2021-08-04 Completed [facility] 00:00:00 [facility] Remdesivir 2021-08-04 Completed [facility] 00:00:00 [facility] Remdesivir 2021-08-04 Completed [facility] 00:00:00 [facility] Remdesivir 2021-08-04 Completed [facility] 00[facility]00:00 [facility] Remdesivir 2021-08-04 Completed [facility] 00:00:00 [facility] Remdesivir 2021-08-04 Completed [facility] 00:00:00 [facility] Remdesivir 2021-08-04 Completed [facility] 00:00:00 [facility] SARS-COV-2 COVID-19 2021-06-03 Completed Unive rsity of MODERNA 12+ YRS 00:00:00 [facility] V[facility] SARS-COV-2 COVID-19 2021-06-03 Completed Unive rsity of MODERNA 12+ YRS 00:00:00 [facility] ical VACCINE Branch SARS-COV-2 COVID-19 2021-06-03 Completed Unive rsity of MODERNA 12+ YRS 00:00:00 [facility] ical VACCINE Branch SARS-COV-2 COVID-19 2021-06-03 Completed [facility]ive rsity of MODERNA 12+ YRS 00:00:00 [facility] ical VACCINE Branch SARS-COV-2 COVID-19 2021-06-03 Completed Unive rsity of MODERNA 12+ YRS 00:00:00 [facility] VACCINE Branch SARS-COV-2 COVID-19 2021-06-03 Completed [facility]ive rsity of MODERNA 12+ YRS 00:00:00 [facility] VACCINE [facility] SARS-COV-2 COVID-19 2021-06-03 Completed [facility]ive rsity of MODERNA 12+ YRS 00:00:00 [facility] VACCINE [facility] SARS-COV-2 COVID-19 2021-06-03 Completed [facility]ive rsity of MODERNA 12+ YRS 00:00:00 [facility] VACCINE [facility] SARS-COV-2 COVID-19 2021-06-03 Completed [facility]ive rsity of MODERNA 12+ YRS 00:00:00 [place] [facility] VACCINE [facility] SARS-COV-2 COVID-19 2021-06-03 Completed [facility] rsity of MODERNA 12+ YRS 00:00:00 [place] [facility] VACCINE [facility] SARS-COV-2 COVID-19 2021-06-03 Completed [facility] rsity of MODERNA 12+ YRS 00:00:00 [place] [facility] VACCINE [facility] SARS-COV-2 COVID-19 2021-06-03 Completed [facility] rsity of MODERNA 12+ YRS 00:00:00 [place] [facility] VACCINE [facility] SARS-COV-2 COVID-19 2021-06-03 Completed [facility] MODERNA VACCINE 00:00:00 [place] [facility] SARS-COV-2 COVID-19 2021-06-03 Completed [facility] rs[facility] of MODERNA VACCINE 00:00:00 [place] [facility] SARS-COV-2 COVID-19 2021-06-03 Completed [facility] rs[facility] of MODERNA VACCINE 00:00:00 [place] [facility] SARS-COV-2 COVID-19 2021-06-03 Completed [facility] of MODERNA VACCINE 00:00:00 [place] [facility] SARS-COV-2 COVID-19 2021-06-03 Completed [facility] MODERNA VACCINE 00:00:00 [place] [facility] SARS-COV-2 COVID-19 2021-06-03 Completed [facility] MODERNA VACCINE 00:00:00 [place] [facility] SARS-COV-2 COVID-19 2021-06-03 Completed [facility] MODERNA VACCINE 00:00:00 [place] [facility] SARS-COV-2 COVID-19 2021-06-03 Completed [facility] rs[facility] of MODERNA VACCINE 00:00:00 [facility] ical Branch SARS-COV-2 COVID-19 2021-06-03 Completed [facility]ive rsity of MODERNA VACCINE 00:00:00 [facility] ical Branch SARS-COV-2 COVID-19 2021-06-03 Completed [facility] rsity of MODERNA VACCINE 00:00:00 [facility] ical Branch SARS-COV-2 COVID-19 2021-06-03 Completed [facility]ive rsity of MODERNA VACCINE 00:00:00 [facility] ical Branch SARS-COV-2 COVID-19 2021-06-03 Completed [facility] rs[facility] of MODERNA VACCINE 00:00:00 [facility] ical Branch SARS-COV-2 COVID-19 2021-06-03 Completed [facility]ive rsity of MODERNA 12+ YRS 00:00:00 [facility] ical VACCINE Branch SARS-COV-2 COVID-19 2021-06-03 Completed [facility]ive rsity of MODERNA 12+ YRS 00:00:00 [facility] ical VACCINE Branch SARS-COV-2 COVID-19 2021-06-03 Completed [facility]ive rsity of MODERNA 12+ YRS 00:00:00 [facility] ical VACCINE Branch SARS-COV-2 COVID-19 2021-06-03 Completed Unive rsity of MODERNA 12+ YRS 00:00:00 [facility] ical VACCINE Branch SARS-COV-2 COVID-19 2021-06-03 Completed [facility]ive rsity of MODERNA 12+ YRS 00:00:00 [facility] ical VACCINE Branch SARS-COV-2 COVID-19 2021-06-03 Completed [facility]ive rsity of MODERNA 12+ YRS 00:00:00 [facility] ical VACCINE Branch SARS-COV-2 COVID-19 2021-06-03 Completed Unive rsity of MODERNA 12+ YRS 00:00:00 [facility] ical VACCINE Branch SARS-COV-2 COVID-19 2021-06-03 Completed [facility]ive rsity of MODERNA 12+ YRS 00:00:00 [facility] VACCINE Branch Influenza Virus 2021-02-19 Completed [facility] IM, 00:00:00 [place] [facility] Preserv and ABX Free Bran ch 6 MO-64 YRS Influenza Virus 2021-02-19 Completed [facility], 00:00:00 [place] [facility] Preserv and ABX Free Bran ch 6 MO-64 YRS Influenza Virus 2021-02-19 Completed [facility], 00:00:00 [place] [facility] Preserv and ABX Free Bran ch 6 MO-64 YRS Influenza Virus 2021-02-19 Completed [facility], 00:00:00 [place] [facility] Preserv and ABX Free Bran ch 6 MO-64 YRS Influenza Virus 2021-02-19 Completed [facility], 00:00:00 [place] [facility] Preserv and ABX Free Bran ch 6 MO-64 YRS Influenza Virus 2021-02-19 Completed [facility], 00:00:00 [place] [facility] Preserv and ABX Free Bran ch 6 MO-64 YRS Influenza Virus 2021-02-19 Completed [facility] IM, 00:00:00 [place] [facility] Preserv and ABX Free Bran ch 6 MO-64 YRS Influenza Virus 2021-02-19 Completed [facility] IM, 00:00:00 [place] [facility] Preserv and ABX Free Bran ch 6 MO-64 YRS Influenza Virus 2021-02-19 Completed [facility] IM, 00:00:00 [place] [facility] Preserv and ABX Free Bran ch 6 MO-64 YRS Influenza Virus 2021-02-19 Completed [facility], 00:00:00 [place] [facility] Preserv and ABX Free Bran ch 6 MO-64 YRS Influenza Virus 2021-02-19 Completed [facility], 00:00:00 [place] [facility] Preserv and ABX Free Bran ch 6 MO-64 YRS Influenza Virus 2021-02-19 Completed [facility], 00:00:00 [place] [facility] Preserv and ABX Free Bran ch 6 MO-64 YRS Influenza Virus 2021-02-19 Completed [facility], 00:00:00 [place] [facility] Preserv and ABX Free Bran ch 6 MO-64 YRS Influenza Virus 2021-02-19 Completed [facility] IM, 00:00:00 [place] [facility] Preserv and ABX Free Bran ch 6 MO-64 YRS Influenza Virus 2021-02-19 Completed [facility] IM, 00:00:00 [place] [facility] Preserv and ABX Free Bran ch 6 MO-64 YRS Influenza Virus 2021-02-19 Completed [facility], 00:00:00 [place] [facility] Preserv and ABX Free Bran ch 6 MO-64 YRS Influenza Virus 2021-02-19 Completed [facility], 00:00:00 [place] [facility] Preserv and ABX Free Bran ch 6 MO-64 YRS Influenza Virus 2021-02-19 Completed [facility], 00:00:00 [place] [facility] Preserv and ABX Free Bran ch 6 MO-64 YRS Influenza Virus 2021-02-19 Completed [facility], 00:00:00 [place] [facility] Preserv and ABX Free Bran ch 6 MO-64 YRS Influenza Virus 2021-02-19 Completed [facility], 00:00:00 [place] [facility] Preserv and ABX Free Bran ch 6 MO-64 YRS Influenza Virus 2021-02-19 Completed [facility], 00:00:00 [place] [facility] Preserv and ABX Free Bran ch 6 MO-64 YRS Influenza Virus 2021-02-19 Completed [facility], 00:00:00 [place] [facility] Preserv and ABX Free Bran ch 6 MO-64 YRS Influenza Virus 2021-02-19 Completed [facility], 00:00:00 [place] [facility] Preserv and ABX Free Bran ch 6 MO-64 YRS Influenza Virus 2021-02-19 Completed [facility], 00:00:00 [place] [facility] Preserv and ABX Free Bran ch 6 MO-64 YRS Influenza Virus 2021-02-19 Completed [facility], 00:00:00 [place] [facility] Preserv and ABX Free Bran ch 6 MO-64 YRS Influenza Virus 2021-02-19 Completed [facility], 00:00:00 [place] [facility] Preserv and ABX Free Bran ch 6 MO-64 YRS Influenza Virus 2021-02-19 Completed [facility] IM, 00:00:00 [place] [facility] Preserv and ABX Free Bran ch 6 MO-64 YRS Influenza Virus 2021-02-19 Completed [facility] IM, 00:00:00 [place] [facility] Preserv and ABX Free Bran ch 6 MO-64 YRS Influenza Virus 2021-02-19 Completed [facility] IM, 00:00:00 [place] [facility] Preserv and ABX Free Bran ch 6 MO-64 YRS Influenza Virus 2021-02-19 Completed [facility] IM, 00:00:00 [place] [facility] Preserv and ABX Free Bran ch 6 MO-64 YRS Influenza Virus 2021-02-19 Completed [facility] IM, 00:00:00 [place] [facility] Preserv and ABX Free Bran ch 6 MO-64 YRS Influenza Virus 2021-02-19 Completed [facility] IM, 00:00:00 [place] [facility] Preserv and ABX Free Bran ch 6 MO-64 YRS SARS-COV-2 COVID-19 2020-12-05 Completed Unive rsity of PFIZER VACCINE 00:00:00 [facility] SARS-COV-2 COVID-19 2020-12-05 Completed Unive rsity of PFIZER VACCINE 00:00:00 [facility] SARS-COV-2 COVID-19 2020-12-05 Completed Unive rsity of PFIZER VACCINE 00:00:00 [facility] SARS-COV-2 COVID-19 2020-12-05 Completed Unive rsity of PFIZER VACCINE 00:00:00 [facility] SARS-COV-2 COVID-19 2020-12-05 Completed [facility]ive rsity of PFIZER VACCINE 00:00:00 [facility] SARS-COV-2 COVID-19 2020-12-05 Completed [facility]ive rsity of PFIZER VACCINE 00:00:00 [facility] SARS-COV-2 COVID-19 2020-12-05 Completed [facility]ive rsity of PFIZER VACCINE 00:00:00 [facility] SARS-COV-2 COVID-19 2020-12-05 Completed [facility]ive rsity of PFIZER VACCINE 00:00:00 [facility] SARS-COV-2 COVID-19 2020-12-05 Completed [facility]ive rsity of PFIZER VACCINE 00:00:00 [facility] SARS-COV-2 COVID-19 2020-12-05 Completed [facility] rs[facility] of PFIZER VACCINE 00:00:00 [facility] SARS-COV-2 COVID-19 2020-12-05 Completed Unive rsity of PFIZER VACCINE 00:00:00 [facility] SARS-COV-2 COVID-19 2020-12-05 Completed Unive rsity of PFIZER VACCINE 00:00:00 [facility] SARS-COV-2 COVID-19 2020-12-05 Completed Unive rsity of PFIZER VACCINE 00:00:00 [facility] SARS-COV-2 COVID-19 2020-12-05 Completed Unive rsity of PFIZER VACCINE 00:00:00 [facility] SARS-COV-2 COVID-19 2020-12-05 Completed Unive rsity of PFIZER VACCINE 00:00:00 [facility] SARS-COV-2 COVID-19 2020-12-05 Completed Unive rsity of PFIZER VACCINE 00:00:00 [facility] SARS-COV-2 COVID-19 2020-12-05 Completed [facility]ive rsity of PFIZER VACCINE 00:00:00 [facility] SARS-COV-2 COVID-19 2020-12-05 Completed [facility]ive rsity of PFIZER VACCINE 00:00:00 [facility] SARS-COV-2 COVID-19 2020-12-05 Completed [facility]ive rsity of PFIZER VACCINE 00:00:00 [facility] SARS-COV-2 COVID-19 2020-12-05 Completed Unive rsity of PFIZER VACCINE 00:00:00 [facility] SARS-COV-2 COVID-19 2020-12-05 Completed Unive rsity of PFIZER VACCINE 00:00:00 [facility] SARS-COV-2 COVID-19 2020-12-05 Completed [facility]ive rsity of PFIZER VACCINE 00:00:00 [facility] SARS-COV-2 COVID-19 2020-12-05 Completed [facility]ive rsity of PFIZER VACCINE 00:00:00 [facility] SARS-COV-2 COVID-19 2020-12-05 Completed [facility] of PFIZER VACCINE 00:00:00 [facility] SARS-COV-2 COVID-19 2020-12-05 Completed Unive rsity of PFIZER VACCINE 00:00:00 [facility] SARS-COV-2 COVID-19 2020-12-05 Completed [facility]ive rs[facility] of PFIZER VACCINE 00:00:00 [facility] SARS-COV-2 COVID-19 2020-12-05 Completed [facility]ive rsity of PFIZER VACCINE 00:00:00 [facility] SARS-COV-2 COVID-19 2020-12-05 Completed [facility]ive rsity of PFIZER VACCINE 00:00:00 [facility] SARS-COV-2 COVID-19 2020-12-05 Completed Unive rsity of PFIZER VACCINE 00:00:00 [facility] SARS-COV-2 COVID-19 2020-12-05 Completed [facility]ive rs[facility] of PFIZER VACCINE 00:00:00 [facility] SARS-COV-2 COVID-19 2020-12-05 Completed [facility]ive rsity of PFIZER VACCINE 00:00:00 [facility] SARS-COV-2 COVID-19 2020-12-05 Completed Unive rsity of PFIZER VACCINE 00:00:00 [facility] SARS-COV-2 COVID-19 2020-11-14 Completed Unive rsity of PFIZER VACCINE 00:00:00 [facility] SARS-COV-2 COVID-19 2020-11-14 Completed Unive rsity of PFIZER VACCINE 00:00:00 [facility] SARS-COV-2 COVID-19 2020-11-14 Completed [facility]ive rsity of PFIZER VACCINE 00:00:00 [facility] SARS-COV-2 COVID-19 2020-11-14 Completed Unive rsity of PFIZER VACCINE 00:00:00 [facility] SARS-COV-2 COVID-19 2020-11-14 Completed [facility]ive rsity of PFIZER VACCINE 00:00:00 [facility] SARS-COV-2 COVID-19 2020-11-14 Completed Unive rsity of PFIZER VACCINE 00:00:00 [facility] SARS-COV-2 COVID-19 2020-11-14 Completed [facility]ive rsity of PFIZER VACCINE 00:00:00 [facility] SARS-COV-2 COVID-19 2020-11-14 Completed [facility] rsity of PFIZER VACCINE 00:00:00 [facility] SARS-COV-2 COVID-19 2020-11-14 Completed [facility]ive rsity of PFIZER VACCINE 00:00:00 [facility] SARS-COV-2 COVID-19 2020-11-14 Completed [facility] rsity of PFIZER VACCINE 00:00:00 [facility] SARS-COV-2 COVID-19 2020-11-14 Completed [facility] rsity of PFIZER VACCINE 00:00:00 [facility] SARS-COV-2 COVID-19 2020-11-14 Completed [facility] rsity of PFIZER VACCINE 00:00:00 [facility] SARS-COV-2 COVID-19 2020-11-14 Completed [facility] of PFIZER VACCINE 00:00:00 [facility] SARS-COV-2 COVID-19 2020-11-14 Completed [facility] of PFIZER VACCINE 00:00:00 [facility] SARS-COV-2 COVID-19 2020-11-14 Completed [facility]ity of PFIZER VACCINE 00:00:00 [facility] SARS-COV-2 COVID-19 2020-11-14 Completed [facility]ity of PFIZER VACCINE 00:00:00 [facility] SARS-COV-2 COVID-19 2020-11-14 Completed [facility] of PFIZER VACCINE 00:00:00 [facility] SARS-COV-2 COVID-19 2020-11-14 Completed [facility]ity of PFIZER VACCINE 00:00:00 [facility] SARS-COV-2 COVID-19 2020-11-14 Completed [facility] rs[facility] of PFIZER VACCINE 00:00:00 [facility] SARS-COV-2 COVID-19 2020-11-14 Completed [facility] rs[facility] of PFIZER VACCINE 00:00:00 [facility] SARS-COV-2 COVID-19 2020-11-14 Completed [facility] rs[facility] of PFIZER VACCINE 00:00:00 [facility] SARS-COV-2 COVID-19 2020-11-14 Completed [facility] rsity of PFIZER VACCINE 00:00:00 [facility] SARS-COV-2 COVID-19 2020-11-14 Completed [facility] rs[facility] of PFIZER VACCINE 00:00:00 [facility] SARS-COV-2 COVID-19 2020-11-14 Completed [facility] rs[facility] of PFIZER VACCINE 00:00:00 [facility] SARS-COV-2 COVID-19 2020-11-14 Completed [facility] rsity of PFIZER VACCINE 00:00:00 [facility] SARS-COV-2 COVID-19 2020-11-14 Completed [facility] of PFIZER VACCINE 00:00:00 [facility] SARS-COV-2 COVID-19 2020-11-14 Completed [facility] of PFIZER VACCINE 00:00:00 [facility] SARS-COV-2 COVID-19 2020-11-14 Completed [facility] of PFIZER VACCINE 00:00:00 [facility] SARS-COV-2 COVID-19 2020-11-14 Completed [facility] of PFIZER VACCINE 00:00:00 [facility] SARS-COV-2 COVID-19 2020-11-14 Completed [facility] of PFIZER VACCINE 00:00:00 [facility] SARS-COV-2 COVID-19 2020-11-14 Completed [facility] of PFIZER VACCINE 00:00:00 [facility] SARS-COV-2 COVID-19 2020-11-14 Completed [facility] of PFIZER VACCINE 00:00:00 [facility] Influenza Virus 2020-01-08 Completed [facility] .5 mL IM 00:00:00 [facility] 6[facility] MO [facility] Influenza Four-QIV PF 2020-01-[address] [facility] 3+YR IM 00:00:00 [facility] Influenza Virus 2020-01-08 Completed [facility] .5 mL IM 00:00:00 [facility] 6[facility] MO [facility] Influenza Virus 2020-01-08 Completed [facility] .5 mL IM 00:00:00 [facility] 6[facility] MO [facility] Influenza Virus 2020-01-08 Completed [facility] .5 mL IM 00:00:00 [facility] 6[facility] MO [facility] Influenza Virus 2020-01-08 Completed [facility] .5 mL IM 00:00:00 [facility] 6[facility] MO [facility] Influenza Virus 2020-01-08 Completed [facility] .5 mL IM 00:00:00 [facility] 6[facility] MO [facility] Influenza Virus 2020-01-08 Completed [facility] .5 mL IM 00:00:00 [facility] MO [facility] Influenza Virus 2020-01-08 Completed [facility] .5 mL IM 00:00:00 [facility] MO [facility] Influenza Virus 2020-01-08 Completed [facility] .5 mL IM 00:00:00 [facility] 6[facility] MO [facility] Influenza Virus 2020-01-08 Completed [facility] .5 mL IM 00:00:00 [facility] 6[facility] MO [facility] Influenza Virus 2020-01-08 Completed [facility] .5 mL IM 00:00:00 [facility] 6[facility] MO [facility] Influenza Virus 2020-01-08 Completed [facility] .5 mL IM 00:00:00 [facility] 6[facility] MO [facility] Influenza Virus 2020-01-08 Completed [facility] .5 mL IM 00:00:00 [facility] MO [facility] Influenza Virus 2020-01-08 Completed [facility] .5 mL IM 00:00:00 [facility] MO [facility] Influenza Virus 2020-01-08 Completed [facility] .5 mL IM 00:00:00 [facility] Influenza Virus 2020-01-08 Completed [facility] .5 mL IM 00:00:00 [facility] Influenza Virus 2020-01-08 Completed [facility] .5 mL IM 00:00:00 [facility] MO [facility] Influenza Virus 2020-01-08 Completed [facility] .5 mL IM 00:00:00 [facility] Influenza Virus 2020-01-08 Completed [facility] .5 mL IM 00:00:00 [facility] Influenza Virus 2020-01-08 Completed [facility] .5 mL IM 00:00:00 [facility] Influenza Virus 2020-01-08 Completed [facility] .5 mL IM 00:00:00 [facility] Influenza Virus 2020-01-08 Completed [facility] .5 mL IM 00:00:00 [facility] Influenza Virus 2020-01-08 Completed [facility] .5 mL IM 00:00:00 [facility] Influenza Virus 2020-01-08 Completed [facility] .5 mL IM 00:00:00 [facility] Influenza Virus 2020-01-08 Completed [facility] .5 mL IM 00:00:00 [facility] Influenza Virus 2020-01-08 Completed [facility] .5 mL IM 00:00:00 [facility] [facility] Influenza Virus 2020-01-08 Completed [facility] .5 [facility] IM [facility] Influenza Virus 2020-01-08 Completed [facility] .5 mL IM 00:[facility] Influenza Virus 2020-01-08 Completed [facility] .5 mL IM 00:00:00 [facility] Influenza Virus 2020-01-08 Completed [facility] .5 mL IM 00:00:00 [facility] Influenza Virus 2020-01-08 Completed [facility] .5 mL IM 00:00:00 [facility] Influenza Virus 2020-01-08 Completed [facility] .5 mL IM 00:00:00 [facility] Influenza Virus 2020-01-08 Completed [facility] .5 mL IM 00:00:00 [facility] Influenza Four-QIV PF 2020-01-[address] [facility] 3+YR IM 00[facility]00:00 [facility] Influenza Four-QIV PF 2020-01-[address] [facility] 3+YR IM 00:00:00 [facility] Influenza Four-QIV PF 2020-01-[address] [facility] 3+YR IM 00:00:00 [facility] Influenza Four-QIV PF 2020-01-[address] [facility] 3+YR IM 00:00:00 [facility] Influenza Four-QIV PF 2020-01-[address] [facility] 3+YR IM 00:00:00 [facility] Influenza Virus 2019-02-27 Completed [facility] .5 mL IM 00:00:00 [facility] Influenza Four-QIV PF 2019-02-[address] [facility] 3+YR IM 00:00:00 [facility] Influenza Virus 2019-02-27 Completed [facility] .5 mL IM 00:00:00 [facility] Influenza Virus 2019-02-27 Completed [facility] .5 mL IM 00:00:00 [facility] Influenza Virus 2019-02-27 Completed [facility] .5 mL IM 00:00:00 [facility] Influenza Virus 2019-02-27 Completed [facility] .5 mL IM 00:00:00 [facility] Influenza Virus 2019-02-27 Completed [facility] .5 mL IM 00:00:00 [facility] Influenza Virus 2019-02-27 Completed [facility] .5 mL IM 00:00:00 [facility] Influenza Virus 2019-02-27 Completed [facility] .5 mL IM 00:00:00 [facility] Influenza Virus 2019-02-27 Completed [facility] .5 mL IM 00:00:00 [facility] Influenza Virus 2019-02-27 Completed [facility] .5 mL IM 00:00:00 [facility] Influenza Virus 2019-02-27 Completed [facility] .5 mL IM 00:00:00 [facility] Influenza Virus 2019-02-27 Completed [facility] .5 mL IM 00:00:00 [facility] Influenza Virus 2019-02-27 Completed [facility] .5 mL IM 00:00:00 [facility] Influenza Virus 2019-02-27 Completed [facility] .5 mL IM 00:00:00 [facility] Influenza Virus 2019-02-27 Completed [facility] .5 mL IM 00:00:00 [facility] Influenza Virus 2019-02-27 Completed [facility] .5 mL IM 00:00:00 [facility] Influenza Virus 2019-02-27 Completed [facility] .5 mL IM 00:00:00 [facility] Influenza Virus 2019-02-27 Completed [facility] .5 mL IM 00:00:00 [facility] Influenza Virus 2019-02-27 Completed [facility] .5 mL IM 00:00:00 [facility] Influenza Virus 2019-02-27 Completed [facility] .5 mL IM 00:00:00 [facility] Influenza Virus 2019-02-27 Completed [facility] .5 mL IM 00:00:00 [facility] Influenza Virus 2019-02-27 Completed [facility] .5 mL IM 00:00:00 [facility] Influenza Virus 2019-02-27 Completed [facility] .5 mL IM 00:00:00 [facility] Influenza Virus 2019-02-27 Completed [facility] .5 mL IM 00:00:00 [facility] Influenza Virus 2019-02-27 Completed [facility] .5 mL IM 00:00:00 [facility] Influenza Virus 2019-02-27 Completed [facility] .5 mL IM 00:00:00 [facility] Influenza Virus 2019-02-27 Completed [facility] .5 mL IM 00:00:00 [facility] Influenza Virus 2019-02-27 Completed [facility] .5 mL IM 00:00:00 [facility] Influenza Virus 2019-02-27 Completed [facility] .5 mL IM 00:00:00 [facility] Influenza Virus 2019-02-27 Completed [facility] .5 mL IM 00:00:00 [facility] Influenza Virus 2019-02-27 Completed [facility] .5 mL IM 00:00:00 [facility] Influenza Virus 2019-02-27 Completed [facility] .5 mL IM 00:00:00 [facility] Influenza Virus 2019-02-27 Completed [facility] .5 mL IM 00:00:00 [facility] Influenza Four-QIV PF 2019-02-[address] [facility] 3+YR IM 00:00:00 [facility] Influenza Four-QIV PF 2019-02-[address] [facility] 3+YR IM 00:00:00 [facility] Influenza Four-QIV PF 2019-02-[address] [facility] 3+YR IM 00:00:00 [facility] Influenza Four-QIV PF 2019-02-[address] [facility] 3+YR IM 00:00:00 [facility] Influenza Four-QIV 2019-02-[address] [facility] 3+YR IM 00:00:00 [facility] Influenza Virus 2018-01-14 Completed [facility] .5 mL IM 00:00:00 [facility] Influenza Four-QIV 2018-01-[address] [facility] 3+YR IM 00:00:00 [facility] Influenza Virus 2018-01-14 Completed [facility] .5 mL IM 00:00:00 [facility] Influenza Virus 2018-01-14 Completed [facility] .5 mL IM 00:00:00 [facility] Influenza Virus 2018-01-14 Completed [facility] .5 mL IM 00:00:00 [facility] Influenza Virus 2018-01-14 Completed [facility] .5 mL IM 00:00:00 [facility] Influenza Virus 2018-01-14 Completed [facility] .5 mL IM 00:00:00 [facility] Influenza Virus 2018-01-14 Completed [facility] .5 mL IM 00:00:00 [facility] Influenza Virus 2018-01-14 Completed [facility] .5 mL IM 00:00:00 [facility] Influenza Virus 2018-01-14 Completed [facility] .5 mL IM 00:00:00 [facility] Influenza Virus 2018-01-14 Completed [facility] .5 mL IM 00:00:00 [facility] Influenza Virus 2018-01-14 Completed [facility] .5 mL IM 00:00:00 [facility] Influenza Virus 2018-01-14 Completed [facility] .5 mL IM 00:00:00 [facility] Influenza Virus 2018-01-14 Completed [facility] .5 mL IM 00:00:00 [facility] Influenza Virus 2018-01-14 Completed [facility] .5 mL IM 00:00:00 [facility] Influenza Virus 2018-01-14 Completed [facility] .5 mL IM 00:00:00 [facility] Influenza Virus 2018-01-14 Completed [facility] .5 mL IM 00:00:00 [facility] Influenza Virus 2018-01-14 Completed [facility] .5 mL IM 00:00:00 [facility] Influenza Virus 2018-01-14 Completed [facility] .5 mL IM 00:00:00 [facility] Influenza Virus 2018-01-14 Completed [facility] .5 mL IM 00:00:00 [facility] Influenza Virus 2018-01-14 Completed [facility] .5 mL IM 00:00:00 [facility] Influenza Virus 2018-01-14 Completed [facility] .5 mL IM 00:00:00 [facility] Influenza Virus 2018-01-14 Completed [facility] .5 mL IM 00:00:00 [facility] Influenza Virus 2018-01-14 Completed [facility] .5 mL IM 00:00:00 [facility] Influenza Virus 2018-01-14 Completed [facility] .5 mL IM 00:00:00 [facility] Influenza Virus 2018-01-14 Completed [facility] .5 mL IM 00:00:00 [facility] Influenza Virus 2018-01-14 Completed [facility] .5 mL IM 00:00:00 [facility] Influenza Virus 2018-01-14 Completed [facility] .5 mL IM 00:00:00 [facility] Influenza Virus 2018-01-14 Completed [facility] .5 mL IM 00:00:00 [facility] Influenza Virus 2018-01-14 Completed [facility] .5 mL IM 00:00:00 [facility] Influenza Virus 2018-01-14 Completed [facility] .5 mL IM 00:00:00 [facility] Influenza Virus 2018-01-14 Completed [facility] .5 mL IM 00:00:00 [facility] Influenza Virus 2018-01-14 Completed [facility] .5 mL IM 00:00:00 [facility] Influenza Virus 2018-01-14 Completed [facility] .5 mL IM 00:00:00 [facility] Influenza Four-QIV PF 2018-01-[address] [facility] 3+YR IM 00:00:00 [facility] Influenza Four-QIV PF 2018-01-[address] [facility] 3+YR IM 00:00:00 [facility] Influenza Four-QIV PF 2018-01-[address] [facility] 3+YR IM 00:00:00 [facility] Influenza Four-QIV PF 2018-01-[address] [facility] 3+YR IM 00:00:00 [facility] Influenza Four-QIV PF 2018-01-[address] [facility] 3+YR IM 00:00:00 [facility] Influenza Virus 2017-02-16 Completed [facility] IM 3+ 00:00:00 [facility] Influenza Four-QIV PF 2017-02-[address] [facility] 3+YR IM 00:00:00 [facility] Influenza Virus 2017-02-16 Completed [facility] Vaccine Quad IM 3+ 00:00:00 [facility] Influenza Virus 2017-02-16 Completed [facility] Vaccine [facility] IM 3+ 00:00:00 [facility] Influenza Virus 2017-02-16 Completed [facility] Vaccine Quad IM 3+ 00:00:00 [facility] Influenza Virus 2017-02-16 Completed [facility] Vaccine [facility] IM 3+ 00:00:00 [facility] Influenza Virus 2017-02-16 Completed [facility] Vaccine [facility] IM 3+ 00:00:00 [facility] Influenza Virus 2017-02-16 Completed [facility] Vaccine [facility] IM 3+ 00:00:00 [facility] Influenza Virus 2017-02-16 Completed [facility] Vaccine [facility] IM 3+ 00:00:00 [facility] Influenza Virus 2017-02-16 Completed [facility] Vaccine Quad IM 3+ 00:00:00 [facility] Influenza Virus 2017-02-16 Completed [facility] Vaccine [facility] IM 3+ 00:00:00 [facility] Influenza Virus 2017-02-16 Completed [facility] Vaccine [facility] IM 3+ 00:00:00 [facility] Influenza Virus 2017-02-16 Completed [facility] Vaccine Quad IM 3+ 00:00:00 [facility] Influenza Virus 2017-02-16 Completed [facility] Vaccine [facility] IM 3+ 00:00:00 [facility] Influenza Virus 2017-02-16 Completed [facility] Vaccine Quad IM 3+ 00:00:00 [facility] Influenza Virus 2017-02-16 Completed [facility] Vaccine Quad IM 3+ 00:00:00 [facility] Influenza Virus 2017-02-16 Completed [facility] Vaccine [facility] IM 3+ 00:00:00 [facility] Influenza Virus 2017-02-16 Completed [facility] Vaccine Quad IM 3+ 00:00:00 [facility] Influenza Virus 2017-02-16 Completed [facility] Vaccine Quad IM 3+ 00:00:00 [facility] Influenza Virus 2017-02-16 Completed [facility] Vaccine Quad IM 3+ 00:00:00 [facility] Influenza Virus 2017-02-16 Completed [facility] Vaccine [facility] IM 3+ 00:00:00 [facility] Influenza Virus 2017-02-16 Completed [facility] Vaccine [facility] IM 3+ 00:00:00 [facility] Influenza Virus 2017-02-16 Completed [facility] Vaccine Quad IM 3+ 00:00:00 [facility] Influenza Virus 2017-02-16 Completed [facility] Vaccine Quad IM 3+ 00:00:00 [facility] Influenza Virus 2017-02-16 Completed [facility] Vaccine Quad IM 3+ 00:00:00 [facility] Influenza Virus 2017-02-16 Completed [facility] Vaccine Quad IM 3+ 00:00:00 [facility] Influenza Virus 2017-02-16 Completed [facility] Vaccine Quad IM 3+ 00:00:00 [facility] Influenza Virus 2017-02-16 Completed [facility] Vaccine Quad IM 3+ 00:00:00 [facility] Influenza Virus 2017-02-16 Completed [facility] Vaccine Quad IM 3+ 00:00:00 [facility] Influenza Virus 2017-02-16 Completed [facility] Vaccine Quad IM 3+ 00:00:00 [facility] Influenza Virus 2017-02-16 Completed [facility] Vaccine Quad IM 3+ 00:00:00 [facility] Influenza Virus 2017-02-16 Completed [facility] Vaccine Quad IM 3+ 00:00:00 [facility] Influenza Virus 2017-02-16 Completed [facility] Vaccine Quad IM 3+ 00:00:00 [facility] Influenza Virus 2017-02-16 Completed [facility] Vaccine [facility] IM 3+ 00:00:00 [facility] Influenza Four-QIV PF 2017-02-[address] [facility] 3+YR IM 00:00:00 [facility] Influenza Four-QIV PF 2017-02-[address] [facility] 3+YR IM 00:00:00 [facility] Influenza Four-QIV PF 2017-02-[address] [facility] 3+YR IM 00:00:00 [facility] Influenza Four-QIV PF 2017-02-[address] [facility] 3+YR IM 00:00:00 [facility] Influenza Four-QIV PF 2017-02-[address] [facility] 3+YR IM 00:00:00 [facility] Pneumococcal 2016 Completed [facility] f Polysaccharide, 00:00:00 [place] [facility] PPSV23 (PNEUMOVAX) Branch Pneumococcal [address] [facility] Polysaccharide 00:00:00 [facility] nter (Pneumovax) Pneumococcal 2016 Completed [facility] Polysaccharide, 00:00:00 [place] [facility] PPSV23 (PNEUMOVAX) Branch Pneumococcal 2016 Completed [facility] Polysaccharide, 00:00:00 [place] [facility] PPSV23 (PNEUMOVAX) Branch Pneumococcal 2016 Completed [facility] Polysaccharide, 00:00:00 [place] [facility] PPSV23 (PNEUMOVAX) Branch Pneumococcal 2016 Completed [facility] Polysaccharide, 00:00:00 [place] [facility] PPSV23 (PNEUMOVAX) Branch Pneumococcal 2016 Completed [facility] Polysaccharide, 00:00:00 [place] [facility] PPSV23 (PNEUMOVAX) Branch Pneumococcal 2016 Completed [facility] Polysaccharide, 00:00:00 [place] [facility] PPSV23 (PNEUMOVAX) Branch Pneumococcal 2016 Completed [facility] Polysaccharide, 00:00:00 [place] [facility] PPSV23 (PNEUMOVAX) Branch Pneumococcal 2016 Completed [facility] Polysaccharide, 00:00:00 [place] [facility] PPSV23 (PNEUMOVAX) Branch Pneumococcal 2016 Completed [facility] Polysaccharide, 00:00:00 [place] [facility] PPSV23 (PNEUMOVAX) Branch Pneumococcal 2016 Completed [facility] Polysaccharide, 00:00:00 [place] [facility] PPSV23 (PNEUMOVAX) Branch Pneumococcal 2016 Completed [facility] Polysaccharide, 00:00:00 [place] [facility] PPSV23 (PNEUMOVAX) Branch Pneumococcal 2016 Completed [facility] Polysaccharide, 00:00:00 [place] [facility] PPSV23 (PNEUMOVAX) Branch Pneumococcal 2016 Completed [facility] Polysaccharide, 00:00:00 [place] [facility] PPSV23 (PNEUMOVAX) Branch Pneumococcal 2016 Completed [facility] Polysaccharide, 00:00:00 [place] [facility] PPSV23 (PNEUMOVAX) Branch Pneumococcal 2016 Completed [facility] Polysaccharide, 00:00:00 [place] [facility] PPSV23 (PNEUMOVAX) Branch Pneumococcal 2016 Completed [facility] Polysaccharide, 00:00:00 [place] [facility] PPSV23 (PNEUMOVAX) Branch Pneumococcal 2016 Completed [facility] Polysaccharide, 00:00:00 [place] [facility] PPSV23 (PNEUMOVAX) Branch Pneumococcal 2016 Completed [facility] Polysaccharide, 00:00:00 [place] [facility] PPSV23 (PNEUMOVAX) Branch Pneumococcal 2016 Completed [facility] Polysaccharide, 00:00:00 [place] [facility] PPSV23 (PNEUMOVAX) Branch Pneumococcal 2016 Completed [facility] Polysaccharide, 00:00:00 [place] [facility] PPSV23 (PNEUMOVAX) Branch Pneumococcal 2016 Completed [facility] Polysaccharide, 00:00:00 [place] [facility] PPSV23 (PNEUMOVAX) Branch Pneumococcal 2016 Completed [facility] Polysaccharide, 00:00:00 [place] [facility] PPSV23 (PNEUMOVAX) Branch Pneumococcal 2016 Completed [facility] Polysaccharide, 00:00:00 [place] [facility] PPSV23 (PNEUMOVAX) Branch Pneumococcal 2016 Completed [facility] Polysaccharide, 00:00:00 [place] [facility] PPSV23 (PNEUMOVAX) Branch Pneumococcal 2016 Completed [facility] Polysaccharide, 00:00:00 [place] [facility] PPSV23 (PNEUMOVAX) Branch Pneumococcal 2016 Completed [facility] Polysaccharide, 00:00:00 [place] [facility] PPSV23 (PNEUMOVAX) Branch Pneumococcal 2016 Completed [facility] Polysaccharide, 00:00:00 [place] [facility] PPSV23 (PNEUMOVAX) Branch Pneumococcal 2016 Completed [facility] Polysaccharide, 00:00:00 [place] [facility] PPSV23 (PNEUMOVAX) Branch Pneumococcal 2016 Completed [facility] Polysaccharide, 00:00:00 [place] [facility] PPSV23 (PNEUMOVAX) Branch Pneumococcal 2016 Completed [facility] Polysaccharide, 00:00:00 [place] [facility] PPSV23 (PNEUMOVAX) Branch Pneumococcal 2016 Completed [facility] Polysaccharide, 00:00:00 [place] [facility] PPSV23 (PNEUMOVAX) Branch Pneumococcal 2016 Completed [facility] Polysaccharide, 00:00:00 [place] [facility] PPSV23 (PNEUMOVAX) Branch Pneumococcal [address] [facility] Polysaccharide 00:00:00 [facility] (Pneumovax) Pneumococcal [address] [facility] Polysaccharide 00:00:00 [facility] (Pneumovax) Pneumococcal [address] [facility] Polysaccharide 00:00:00 [facility] (Pneumovax) Pneumococcal [address] [facility] Polysaccharide 00:00:00 [facility] (Pneumovax) Pneumococcal [address] [facility] Polysaccharide 00:00:00 [facility] (Pneumovax) Influenza Virus 2016-01-23 Completed [facility] Vaccine Quad IM 3+ 00:00:00 [facility] Influenza Four-QIV PF 2016-01-[address] [facility] 3+YR IM 00:00:00 [facility] Influenza Virus 2016-01-23 Completed [facility] Vaccine Quad IM 3+ 00:00:00 [facility] Influenza Virus 2016-01-23 Completed [facility] Vaccine Quad IM 3+ 00:00:00 [facility] Influenza Virus 2016-01-23 Completed [facility] Vaccine Quad IM 3+ 00:00:00 [facility] Influenza Virus 2016-01-23 Completed [facility] Vaccine Quad IM 3+ 00:00:00 [facility] Influenza Virus 2016-01-23 Completed [facility] Vaccine Quad IM 3+ 00:00:00 [facility] Influenza Virus 2016-01-23 Completed [facility] Vaccine Quad IM 3+ 00:00:00 [facility] Influenza Virus 2016-01-23 Completed [facility] Vaccine Quad IM 3+ 00:00:00 [facility] Influenza Virus 2016-01-23 Completed [facility] Vaccine Quad IM 3+ 00:00:00 [facility] Influenza Virus 2016-01-23 Completed [facility] Vaccine Quad IM 3+ 00:00:00 [facility] Influenza Virus 2016-01-23 Completed [facility] Vaccine Quad IM 3+ 00:00:00 [facility] Influenza Virus 2016-01-23 Completed [facility] Vaccine Quad IM 3+ 00:00:00 [facility] Influenza Virus 2016-01-23 Completed [facility] Vaccine Quad IM 3+ 00:00:00 [facility] Influenza Virus 2016-01-23 Completed [facility] Vaccine Quad IM 3+ 00:00:00 [facility] Influenza Virus 2016-01-23 Completed [facility] Vaccine Quad IM 3+ 00:00:00 [facility] Influenza Virus 2016-01-23 Completed [facility] Vaccine Quad IM 3+ 00:00:00 [facility] Influenza Virus 2016-01-23 Completed [facility] Vaccine Quad IM 3+ 00:00:00 [facility] Influenza Virus 2016-01-23 Completed [facility] Vaccine Quad IM 3+ 00:00:00 [facility] Influenza Virus 2016-01-23 Completed [facility] Vaccine Quad IM 3+ 00:00:00 [facility] Influenza Virus 2016-01-23 Completed [facility] Vaccine Quad IM 3+ 00:00:00 [facility] Influenza Virus 2016-01-23 Completed [facility] Vaccine Quad IM 3+ 00:00:00 [facility] Influenza Virus 2016-01-23 Completed [facility] Vaccine Quad IM 3+ 00:00:00 [facility] Influenza Virus 2016-01-23 Completed [facility] Vaccine Quad IM 3+ 00:00:00 [facility] Influenza Virus 2016-01-23 Completed [facility] Vaccine Quad IM 3+ 00:00:00 [facility] Influenza Virus 2016-01-23 Completed [facility] Vaccine Quad IM 3+ 00:00:00 [facility] Influenza Virus 2016-01-23 Completed [facility] Vaccine Quad IM 3+ 00:00:00 [facility] Influenza Virus 2016-01-23 Completed [facility] Vaccine Quad IM 3+ 00:00:00 [facility] Influenza Virus 2016-01-23 Completed [facility] Vaccine Quad IM 3+ 00:00:00 [facility] Influenza Virus 2016-01-23 Completed [facility] of Vaccine Quad IM 3+ 00:00:00 [facility] Influenza Virus 2016-01-23 Completed [facility] Vaccine Quad IM 3+ 00:00:00 [facility] Influenza Virus 2016-01-23 Completed [facility] Vaccine Quad IM 3+ 00:00:00 [facility] Influenza Virus 2016-01-23 Completed [facility] Vaccine Quad IM 3+ 00:00:00 [facility] Influenza Virus 2016-01-23 Completed [facility] Vaccine Quad IM 3+ 00:00:00 [facility] Influenza Four-QIV PF 2016-01-[address] [facility] 3+YR IM 00:00:00 [facility] Influenza Four-QIV PF 2016-01-[address] [facility] 3+YR IM 00:00:00 [facility] Influenza Four-QIV PF 2016-01-[address] [facility] 3+YR IM 00:00:00 [facility] Influenza Four-QIV PF 2016-01-[address] [facility] 3+YR IM 00:00:00 [facility] Influenza Four-QIV PF 2016-01-[address] [facility] 3+YR IM 00:00:00 [facility] Influenza Virus 2015-01-03 Completed [facility] of Vaccine Quad IM 3+ 00:00:00 [facility] Influenza Four-QIV PF 2015-01-[address] [facility] 3+YR IM 00:00:00 [facility] Influenza Virus 2015-01-03 Completed [facility] of Vaccine Quad IM 3+ 00:00:00 [facility] Influenza Virus 2015-01-03 Completed [facility] of Vaccine Quad IM 3+ 00:00:00 [facility] Influenza Virus 2015-01-03 Completed [facility] of Vaccine Quad IM 3+ 00:00:00 [facility] Influenza Virus 2015-01-03 Completed [facility] y of Vaccine Quad IM 3+ 00:00:00 [facility] Influenza Virus 2015-01-03 Completed [facility] y of Vaccine Quad IM 3+ 00:00:00 [facility] Influenza Virus 2015-01-03 Completed [facility] of Vaccine Quad IM 3+ 00:00:00 [facility] Influenza Virus 2015-01-03 Completed [facility] of Vaccine Quad IM 3+ 00:00:00 [facility] Influenza Virus 2015-01-03 Completed [facility] of Vaccine Quad IM 3+ 00:00:00 [facility] Influenza Virus 2015-01-03 Completed [facility] of Vaccine Quad IM 3+ 00:00:00 [facility] Influenza Virus 2015-01-03 Completed [facility] of Vaccine Quad IM 3+ 00:00:00 [facility] Influenza Virus 2015-01-03 Completed [facility] of Vaccine Quad IM 3+ 00:00:00 [facility] Influenza Virus 2015-01-03 Completed [facility] of Vaccine Quad IM 3+ 00:00:00 [facility] Influenza Virus 2015-01-03 Completed [facility] of Vaccine Quad IM 3+ 00:00:00 [facility] Influenza Virus 2015-01-03 Completed [facility] of Vaccine Quad IM 3+ 00:00:00 [facility] Influenza Virus 2015-01-03 Completed [facility] of Vaccine Quad IM 3+ 00:00:00 [facility] Influenza Virus 2015-01-03 Completed [facility] of Vaccine Quad IM 3+ 00:00:00 [facility] Influenza Virus 2015-01-03 Completed [facility] of Vaccine Quad IM 3+ 00:00:00 [facility] Influenza Virus 2015-01-03 Completed [facility] of Vaccine Quad IM 3+ 00:00:00 [facility] Influenza Virus 2015-01-03 Completed [facility] of Vaccine Quad IM 3+ 00:00:00 [facility] Influenza Virus 2015-01-03 Completed [facility] of Vaccine Quad IM 3+ 00:00:00 [facility] Influenza Virus 2015-01-03 Completed [facility] of Vaccine Quad IM 3+ 00:00:00 [facility] Influenza Virus 2015-01-03 Completed [facility] of Vaccine Quad IM 3+ 00:00:00 [facility] Influenza Virus 2015-01-03 Completed [facility] of Vaccine Quad IM 3+ 00:00:00 [facility] Influenza Virus 2015-01-03 Completed [facility] of Vaccine Quad IM 3+ 00:00:00 [facility] Influenza Virus 2015-01-03 Completed [facility] of Vaccine Quad IM 3+ 00:00:00 [facility] Influenza Virus 2015-01-03 Completed [facility] of Vaccine Quad IM 3+ 00:00:00 [facility] Influenza Virus 2015-01-03 Completed [facility] of Vaccine Quad IM 3+ 00:00:00 [facility] Influenza Virus 2015-01-03 Completed [facility] of Vaccine Quad IM 3+ 00:00:00 [facility] Influenza Virus 2015-01-03 Completed [facility] of Vaccine Quad IM 3+ 00:00:00 [facility] Influenza Virus 2015-01-03 Completed [facility] of Vaccine Quad IM 3+ 00:00:00 [facility] Influenza Virus 2015-01-03 Completed [facility] of Vaccine Quad IM 3+ 00:00:00 [facility] Influenza Virus 2015-01-03 Completed [facility] of Vaccine Quad IM 3+ 00:00:00 [facility] Influenza Four-QIV PF 2015-01-[address] [facility] 3+YR IM 00:00:00 [facility] Influenza Four-QIV PF 2015-01-[address] [facility] 3+YR IM 00:00:00 [facility] Influenza Four-QIV PF 2015-01-[address] [facility] 3+YR IM 00:00:00 [facility] Influenza Four-QIV PF 2015-01-[address] [facility] 3+YR IM 00:00:00 [facility] Influenza Four-QIV PF 2015-01-[address] [facility] 3+YR IM 00:00:00 [facility] Influenza Virus 2013-12-17 Completed [facility] of Vaccine (3+ yrs) 00:00:00 [facility] dical Branch Pneumococcal 13 2013-12-17 Completed [facility]it y of Conjugate, PCV13 00:00:00 [facility] dical (Prevnar 13) Branch Pneumococcal 2013-12-[address] [facility] Conjugate (Prevnar) 00:00:00 [facility] 13-Valent Influenza Three-TIV 2013-12-17 [facility] Influ[facility] Virus 2013-12-17 Completed [facility] Vaccine (3+ yrs) 00:00:00 [facility] dical Branch Pneumococcal 13 2013-12-17 Completed [facility] of Conjugate, PCV13 00:00:00 [facility] dical (Prevnar 13) Branch Influenza Virus 2013-12-17 Completed [facility] y of Vaccine (3+ yrs) 00:00:00 [place] [facility] Pneumococcal 13 2013-12-17 Completed [facility] y of Conjugate, PCV13 00:00:00 [facility] dical (Prevnar 13) Branch Influenza Virus 2013-12-17 Completed [facility] of Vaccine (3+ yrs) 00:00:00 [facility] d[facility] Branch Pneumococcal 13 2013-12-17 Completed [facility] y of Conjugate, PCV13 00:00:00 [facility] dical (Prevnar 13) Branch Influenza Virus 2013-12-17 Completed [facility] y of Vaccine (3+ yrs) 00:00:00 [facility] d[facility] Branch Pneumococcal 13 2013-12-17 Completed [facility] y of Conjugate, PCV13 00:00:00 [facility] dical (Prevnar 13) Branch Influenza Virus 2013-12-17 Completed [facility] of Vaccine (3+ yrs) 00:00:00 [facility] d[facility] Branch Pneumococcal 13 2013-12-17 Completed [facility] y of Conjugate, PCV13 00:00:00 [facility] dical (Prevnar 13) Branch Influenza Virus 2013-12-17 Completed [facility] of Vaccine (3+ yrs) 00:00:00 [facility] d[facility] Branch Pneumococcal 13 2013-12-17 Completed [facility] y of Conjugate, PCV13 00:00:00 [facility] dical (Prevnar 13) Branch Influenza Virus 2013-12-17 Completed [facility] of Vaccine (3+ yrs) 00:00:00 [place] [facility] Pneumococcal 13 2013-12-17 Completed [facility] of Conjugate, PCV13 00:00:00 [facility] dical (Prevnar 13) Branch Influenza Virus 2013-12-17 Completed [facility] of Vaccine (3+ yrs) 00:00:00 [facility] d[facility] Branch Pneumococcal 13 2013-12-17 Completed [facility] y of Conjugate, PCV13 00:00:00 [facility] dical (Prevnar 13) Branch Influenza Virus 2013-12-17 Completed [facility] Vaccine (3+ yrs) 00:00:00 [place] [facility] Pneumococcal 13 2013-12-17 Completed [facility] of Conjugate, PCV13 00:00:00 [place] [facility] (Prevnar 13) Branch Influenza Virus 2013-12-17 Completed [facility] Vaccine (3+ yrs) 00:00:00 [place] [facility] Pneumococcal 13 2013-12-17 Completed [facility] Conjugate, PCV13 00:00:00 [place] [facility] (Prevnar 13) Branch Influenza Virus 2013-12-17 Completed [facility] Vaccine (3+ yrs) 00:00:00 [place] [facility] Pneumococcal 13 2013-12-17 Completed [facility] Conjugate, PCV13 00:00:00 [place] [facility] (Prevnar 13) Branch Influenza Virus 2013-12-17 Completed [facility] Vaccine (3+ yrs) 00:00:00 [place] [facility] Pneumococcal 13 2013-12-17 Completed [facility] Conjugate, PCV13 00:00:00 [place] [facility] (Prevnar 13) Branch Influenza Virus 2013-12-17 Completed [facility] Vaccine (3+ yrs) 00:00:00 [place] [facility] Pneumococcal 13 2013-12-17 Completed [facility] of Conjugate, PCV13 00:00:00 [place] [facility] (Prevnar 13) Branch Influenza Virus 2013-12-17 Completed [facility] of Vaccine (3+ yrs) 00:00:00 [place] [facility] Pneumococcal 13 2013-12-17 Completed [facility] of Conjugate, PCV13 00:00:00 [place] [facility] (Prevnar 13) Branch Influenza Virus 2013-12-17 Completed [facility] Vaccine (3+ yrs) 00:00:00 [place] [facility] Pneumococcal 13 2013-12-17 Completed [facility] Conjugate, PCV13 00:00:00 [place] [facility] (Prevnar 13) Branch Influenza Virus 2013-12-17 Completed [facility] Vaccine (3+ yrs) 00:00:00 [place] [facility] Pneumococcal 13 2013-12-17 Completed [facility] of Conjugate, PCV13 00:00:00 [place] [facility] (Prevnar 13) Branch Influenza Virus 2013-12-17 Completed [facility] Vaccine (3+ yrs) 00:00:00 [place] [facility] Pneumococcal 13 2013-12-17 Completed [facility] Conjugate, PCV13 00:00:00 [place] [facility] (Prevnar 13) Branch Influenza Virus 2013-12-17 Completed [facility] Vaccine (3+ yrs) 00:00:00 [place] [facility] Pneumococcal 13 2013-12-17 Completed [facility] Conjugate, PCV13 00:00:00 [place] [facility] (Prevnar 13) Branch Influenza Virus 2013-12-17 Completed [facility] Vaccine (3+ yrs) 00:00:00 [place] [facility] Pneumococcal 13 2013-12-17 Completed [facility] Conjugate, PCV13 00:00:00 [place] [facility] (Prevnar 13) Branch Influenza Virus 2013-12-17 Completed [facility] Vaccine (3+ yrs) 00:00:00 [place] [facility] Pneumococcal 13 2013-12-17 Completed [facility] Conjugate, PCV13 00:00:00 [place] [facility] (Prevnar 13) Branch Influenza Virus 2013-12-17 Completed [facility] Vaccine (3+ yrs) 00:00:00 [place] [facility] Pneumococcal 13 2013-12-17 Completed [facility] of Conjugate, PCV13 00:00:00 [place] [facility] (Prevnar 13) Branch Influenza Virus 2013-12-17 Completed [facility] Vaccine (3+ yrs) 00:00:00 [place] [facility] Pneumococcal 13 2013-12-17 Completed [facility] Conjugate, PCV13 00:00:00 [place] [facility] (Prevnar 13) Branch Influenza Virus 2013-12-17 Completed [facility] Vaccine (3+ yrs) 00:00:00 [place] [facility] Pneumococcal 13 2013-12-17 Completed [facility] Conjugate, PCV13 00:00:00 [place] [facility] (Prevnar 13) Branch Influenza Virus 2013-12-17 Completed [facility] Vaccine (3+ yrs) 00:00:00 [place] [facility] Pneumococcal 13 2013-12-17 Completed [facility] Conjugate, PCV13 00:00:00 [place] [facility] (Prevnar 13) Branch Influenza Virus 2013-12-17 Completed [facility] Vaccine (3+ yrs) 00:00:00 [place] [facility] Pneumococcal 13 2013-12-17 Completed [facility] Conjugate, PCV13 00:00:00 [place] [facility] (Prevnar 13) Branch Influenza Virus 2013-12-17 Completed [facility] Vaccine (3+ yrs) 00:00:00 [place] [facility] Pneumococcal 13 2013-12-17 Completed [facility] Conjugate, PCV13 00:00:00 [place] [facility] (Prevnar 13) Branch Influenza Virus 2013-12-17 Completed [facility] Vaccine (3+ yrs) 00:00:00 [place] [facility] Pneumococcal 13 2013-12-17 Completed [facility] of Conjugate, PCV13 00:00:00 [place] [facility] (Prevnar 13) Branch Influenza Virus 2013-12-17 Completed [facility] Vaccine (3+ yrs) 00:00:00 [place] [facility] Pneumococcal 13 2013-12-17 Completed [facility] Conjugate, PCV13 00:00:00 [place] [facility] (Prevnar 13) Branch Influenza Virus 2013-12-17 Completed [facility] Vaccine (3+ yrs) 00:00:00 [place] [facility] Pneumococcal 13 2013-12-17 Completed [facility] of Conjugate, PCV13 00:00:00 [place] [facility] (Prevnar 13) Branch Influenza Virus 2013-12-17 Completed [facility] of Vaccine (3+ yrs) 00:00:00 [place] [facility] Pneumococcal 13 2013-12-17 Completed [facility] of Conjugate, PCV13 00:00:00 [place] [facility] (Prevnar 13) Branch Influenza Virus 2013-12-17 Completed [facility] Vaccine (3+ yrs) 00:00:00 [place] [facility] Pneumococcal 13 2013-12-17 Completed [facility] Conjugate, PCV13 00:00:00 [place] [facility] (Prevnar 13) Branch Influenza Virus 2013-12-17 Completed [facility] Vaccine (3+ yrs) 00:00:00 [facility] d[facility] Branch Pneumococcal 13 2013-12-17 Completed [facility] of Conjugate, PCV13 00:00:00 [place] [facility] (Prevnar 13) Branch Pneumococcal 2013-12-[address] [facility] Conjugate (Prevnar) 00:[facility] 13-[facility]ent Influenza Three-TIV 2013-12-17 [facility] Non-PF 5+ YR [facility] Pneumococcal 2013-12-[address] [facility] Conjugate (Prevnar) 00:00:[facility] 13-Valent Influenza Three-TIV 2013-12-17 [facility] Non-PF 5+ YR 00:00:00 [facility] Pneumococcal 2013-12-[address] [facility] Conjugate (Prevnar) 00:00:00 [facility] 13-Valent Influenza Three-TIV 2013-12-17 [facility] Non-PF 5+ YR 00:00:00 [facility] Pneumococcal 2013-12-[address] [facility] Conjugate (Prevnar) 00:00:00 [facility] 13-Valent Influenza Three-TIV 2013-12-17 Com[facility] Non-PF 5+ YR 00:00:00 Medical [facility] er Pneumococcal 2013-12-[address] [facility] Conjugate (Prevnar) 00:00:00 [facility] 13-Valent Influenza Three-TIV 2013-12-17 Completed [facility] Non-PF 5+ YR 00:00:00 [facility] Influenza Virus 2012-12-28 Completed [facility] Vaccine 00:00:00 [facility] Influenza Pre-Epic 2012-12-[address] [facility] 00:00:00 [facility] Influenza Virus 2012-12-28 Completed [facility] Vaccine 00:00:00 [facility] Influenza Virus 2012-12-28 Completed [facility] Vaccine 00:00:00 [facility] Influenza Virus 2012-12-28 Completed [facility] Vaccine 00:00:00 [facility] Influenza Virus 2012-12-28 Completed [facility] Vaccine 00:00:00 [facility] Influenza Virus 2012-12-28 Completed [facility] Vaccine 00:00:00 [facility] Influenza Virus 2012-12-28 Completed [facility] Vaccine 00:00:00 [facility] Influenza Virus 2012-12-28 Completed [facility] Vaccine 00:00:00 [facility] Influenza Virus 2012-12-28 Completed [facility] Vaccine 00:00:00 [facility] Influenza Virus 2012-12-28 Completed [facility] Vaccine 00:00:00 [facility] Influenza Virus 2012-12-28 Completed [facility] Vaccine 00:00:00 [facility] Influenza Virus 2012-12-28 Completed [facility] Vaccine 00:00:00 [facility] Influenza Virus 2012-12-28 Completed [facility] Vaccine 00:00:00 [facility] Influenza Virus 2012-12-28 Completed [facility] Vaccine 00:00:00 [facility] Influenza Virus 2012-12-28 Completed [facility] Vaccine 00:00:00 [facility] Influenza Virus 2012-12-28 Completed [facility] Vaccine 00:00:00 [facility] Influenza Virus 2012-12-28 Completed [facility] Vaccine 00:00:00 [facility] Influenza Virus 2012-12-28 Completed [facility] Vaccine 00:00:00 [facility] Influenza Virus 2012-12-28 Completed [facility] Vaccine 00:00:00 [facility] Influenza Virus 2012-12-28 Completed [facility] Vaccine 00:00:00 [facility] Influenza Virus 2012-12-28 Completed [facility] Vaccine 00:00:00 [facility] Influenza Virus 2012-12-28 Completed [facility] Vaccine 00:00:00 [facility] Influenza Virus 2012-12-28 Completed [facility] Vaccine 00:00:00 [facility] Influenza Virus 2012-12-28 Completed [facility] Vaccine 00:00:00 [facility] Influenza Virus 2012-12-28 Completed [facility] Vaccine 00:00:00 [facility] Influenza Virus 2012-12-28 Completed [facility] Vaccine 00:00:00 [facility] Influenza Virus 2012-12-28 Completed [facility] Vaccine 00:00:00 [facility] Influenza Virus 2012-12-28 Completed [facility] Vaccine 00:00:00 [facility] Influenza Virus 2012-12-28 Completed [facility] Vaccine 00:00:00 [facility] Influenza Virus 2012-12-28 Completed [facility] Vaccine 00:00:00 [facility] Influenza Virus 2012-12-28 Completed [facility] Vaccine 00:00:00 [facility] Influenza Virus 2012-12-28 Completed [facility] Vaccine 00:00:00 [facility] Influenza Virus 2012-12-28 Completed [facility] Vaccine 00:00:00 [facility] Influenza Pre-Epic 2012-12-[address] [facility] 00:00:00 [facility] [place] Influenza Pre-Epic 2012-12-[address] [facility] Influenza Pre-Epic 2012-12-[address] [facility] 00:00:00 [facility] Influenza Pre-Epic 2012-12-[address] [facility] 00:00:00 [facility] Influenza Pre-Epic 2012-12-[address] [facility] 00:00:00 [facility] Influenza Virus 2012-02-09 Completed [facility] Vaccine 00:00:00 [facility] Influenza Pre-Epic 2012-02-[address] [facility] 00:00:00 [facility] Influenza Virus 2012-02-09 Completed [facility] Vaccine 00:00:00 [facility] Influenza Virus 2012-02-09 Completed [facility] Vaccine 00:00:00 [facility] Influenza Virus 2012-02-09 Completed [facility] Vaccine 00:00:00 [facility] Influenza Virus 2012-02-09 Completed [facility] Vaccine 00:00:00 [facility] Influenza Virus 2012-02-09 Completed [facility] of Vaccine 00:00:00 [facility] Influenza Virus 2012-02-09 Completed [facility] Vaccine 00:00:00 [facility] Influenza Virus 2012-02-09 Completed [facility] Vaccine 00:00:00 [facility] Influenza Virus 2012-02-09 Completed [facility] Vaccine 00:00:00 [facility] Influenza Virus 2012-02-09 Completed [facility] Vaccine 00:00:00 [facility] Influenza Virus 2012-02-09 Completed [facility] Vaccine 00:00:00 [facility] Influenza Virus 2012-02-09 Completed [facility] Vaccine 00:00:00 [facility] Influenza Virus 2012-02-09 Completed [facility] Vaccine 00:00:00 [facility] Influenza Virus 2012-02-09 Completed [facility] Vaccine 00:00:00 [facility] Influenza Virus 2012-02-09 Completed [facility] Vaccine 00:00:00 [facility] Influenza Virus 2012-02-09 Completed [facility] Vaccine 00:00:00 [facility] Influenza Virus 2012-02-09 Completed [facility] Vaccine 00:00:00 [facility] Influenza Virus 2012-02-09 Completed [facility] Vaccine 00:00:00 [facility] Influenza Virus 2012-02-09 Completed [facility] Vaccine 00:00:00 [facility] Influenza Virus 2012-02-09 Completed [facility] Vaccine 00:00:00 [facility] Influenza Virus 2012-02-09 Completed [facility] Vaccine 00:00:00 [facility] Influenza Virus 2012-02-09 Completed [facility] Vaccine 00:00:00 [facility] Influenza Virus 2012-02-09 Completed [facility] Vaccine 00:00:00 [facility] Influenza Virus 2012-02-09 Completed [facility] Vaccine 00:00:00 [facility] Influenza Virus 2012-02-09 Completed [facility] Vaccine 00:00:00 [facility] Influenza Virus 2012-02-09 Completed [facility] Vaccine 00:00:00 [facility] Influenza Virus 2012-02-09 Completed [facility] Vaccine 00:00:00 [facility] Influenza Virus 2012-02-09 Completed [facility] Vaccine 00:00:00 [facility] Influenza Virus 2012-02-09 Completed [facility] Vaccine 00:00:00 [facility] Influenza Virus 2012-02-09 Completed [facility] Vaccine 00:00:00 [facility] Influenza Virus 2012-02-09 Completed [facility] Vaccine 00:00:00 [facility] Influenza Virus 2012-02-09 Completed [facility] Vaccine 00:00:00 [facility] Influenza Virus 2012-02-09 Completed [facility] Vaccine 00:00:00 [facility] Influenza Pre-Epic 2012-02-[address] [facility] 00:00:00 [facility] Influenza Pre-Epic 2012-02-[address] [facility] 00:00:00 [facility] Influenza Pre-Epic 2012-02-[address] [facility] 00[facility]00:00 [facility] Influenza Pre-Epic 2012-02-[address] [facility] 00:00:00 [facility] Influenza Pre-Epic 2012-02-[address] [facility] 00:00:00 [facility] TDAP (ADACEL) VACCINE 2011-05-25 Completed [facility] 00:00:00 [facility] Tdap 2011-05-[address] [facility] 00:00:00 [facility] TDAP (ADACEL) VACCINE 2011-05-25 Completed [facility] 00:00:00 [facility] TDAP (ADACEL) VACCINE 2011-05-25 Completed [facility] 00:00:00 [facility] TDAP (ADACEL) VACCINE 2011-05-25 Completed [facility] 00:00:00 [facility] TDAP (ADACEL) VACCINE 2011-05-25 Completed [facility] 00:00:[address] [facility] TDAP (ADACEL) VACCINE 2011-05-25 Completed [facility] 00:00:00 [place] [facility] TDAP (ADACEL) VACCINE 2011-05-25 Completed [facility] 00:00:00 [facility] TDAP (ADACEL) VACCINE 2011-05-25 Completed [facility] 00:00:00 [place] [facility] TDAP (ADACEL) VACCINE 2011-05-25 Completed [facility] 00:00:00 [facility] TDAP (ADACEL) VACCINE 2011-05-25 Completed [facility] 00:00:00 [facility] TDAP (ADACEL) VACCINE 2011-05-25 Completed [facility] 00:00:00 [facility] TDAP (ADACEL) VACCINE 2011-05-25 Completed [facility] 00:00:00 [facility] TDAP (ADACEL) VACCINE 2011-05-25 Completed [facility] 00:00:00 [facility] TDAP (ADACEL) VACCINE 2011-05-25 Completed [facility] 00:00:00 [facility] TDAP (ADACEL) VACCINE 2011-05-25 Completed [facility] 00:00:00 [facility] TDAP (ADACEL) VACCINE 2011-05-25 Completed [facility] 00:00:00 [facility] TDAP (ADACEL) VACCINE 2011-05-25 Completed [facility] 00:00:00 [facility] TDAP (ADACEL) VACCINE 2011-05-25 Completed [facility] 00:00:00 [facility] TDAP (ADACEL) VACCINE 2011-05-25 Completed [facility] 00:00:00 [facility] TDAP (ADACEL) VACCINE 2011-05-25 Completed [facility] 00:00:00 [facility] TDAP (ADACEL) VACCINE 2011-05-25 Completed [facility] 00:00:00 [facility] TDAP (ADACEL) VACCINE 2011-05-25 Completed [facility] 00:00:00 [facility] TDAP (ADACEL) VACCINE 2011-05-25 Completed [facility] 00:00:00 [facility] TDAP (ADACEL) VACCINE 2011-05-25 Completed [facility] 00:00:00 [facility] TDAP (ADACEL) VACCINE 2011-05-25 Completed [facility] 00:00:00 [facility] TDAP (ADACEL) VACCINE 2011-05-25 Completed [facility] 00:00:00 [facility] TDAP (ADACEL) VACCINE 2011-05-25 Completed [facility] 00:00:00 [facility] TDAP (ADACEL) VACCINE 2011-05-25 Completed [facility] 00:00:[address] [facility] TDAP (ADACEL) VACCINE 2011-05-25 Completed [facility] 00:00:00 [facility] TDAP (ADACEL) VACCINE 2011-05-25 Completed [facility] 00:00:[address] [facility] TDAP (ADACEL) VACCINE 2011-05-25 Completed [facility] 00:00:00 [facility] TDAP (ADACEL) VACCINE 2011-05-25 Completed [facility] 00:00:00 [facility] TDAP (ADACEL) VACCINE 2011-05-25 Completed [facility] 00:00:00 [facility] Tdap 2011-05-[address] [facility] 00:00:00 [facility] Tdap 2011-05-[address] [facility] 00:00:00 [facility] Tdap 2011-05-[address] [facility] 00:00:00 [facility] Tdap 2011-05-[address] [facility] 00:00:00 [facility] Tdap 2011-05-[address] [facility] 00:00:00 [facility] Influenza Virus 2011-04-30 Completed [facility] Vaccine 00:00:00 [facility] Influenza Pre-Epic 2011-04-[address] [facility] 00:00:00 [facility] Influenza Virus 2011-04-30 Completed [facility] Vaccine 00:00:00 [facility] Influenza Virus 2011-04-30 Completed [facility] Vaccine 00:00:00 [facility] Influenza Virus 2011-04-30 Completed [facility] Vaccine 00:00:00 [facility] Influenza Virus 2011-04-30 Completed [facility] Vaccine 00:00:00 [facility] Influenza Virus 2011-04-30 Completed [facility] Vaccine 00:00:00 [facility] Influenza Virus 2011-04-30 Completed [facility] Vaccine 00:00:00 [facility] Influenza Virus 2011-04-30 Completed [facility] Vaccine 00:00:00 [facility] Influenza Virus 2011-04-30 Completed [facility] Vaccine 00:00:00 [facility] Influenza Virus 2011-04-30 Completed [facility] Vaccine 00:00:00 [facility] Influenza Virus 2011-04-30 Completed [facility] Vaccine 00:00:00 [facility] Influenza Virus 2011-04-30 Completed [facility] Vaccine 00:00:00 [facility] Influenza Virus 2011-04-30 Completed [facility] Vaccine 00:00:00 [facility] Influenza Virus 2011-04-30 Completed [facility] Vaccine 00:00:00 [facility] Influenza Virus 2011-04-30 Completed [facility] Vaccine 00:00:00 [facility] Influenza Virus 2011-04-30 Completed [facility] Vaccine 00:00:00 [facility] Influenza Virus 2011-04-30 Completed [facility] Vaccine 00:00:00 [facility] Influenza Virus 2011-04-30 Completed [facility] Vaccine 00:00:00 [facility] Influenza Virus 2011-04-30 Completed [facility] Vaccine 00:00:00 [facility] Influenza Virus 2011-04-30 Completed [facility] Vaccine 00:00:00 [facility] Influenza Virus 2011-04-30 Completed [facility] Vaccine 00:00:00 [facility] Influenza Virus 2011-04-30 Completed [facility] Vaccine 00:00:00 [facility] Influenza Virus 2011-04-30 Completed [facility] Vaccine 00:00:00 [facility] Influenza Virus 2011-04-30 Completed [facility] Vaccine 00:00:00 [facility] Influenza Virus 2011-04-30 Completed [facility] Vaccine 00:00:00 [facility] Influenza Virus 2011-04-30 Completed [facility] Vaccine 00:00:00 [facility] Influenza Virus 2011-04-30 Completed [facility] Vaccine 00:00:00 [facility] Influenza Virus 2011-04-30 Completed [facility] Vaccine 00:00:00 [facility] Influenza Virus 2011-04-30 Completed [facility] Vaccine 00:00:00 [facility] Influenza Virus 2011-04-30 Completed [facility] Vaccine 00:00:00 [facility] Influenza Virus 2011-04-30 Completed [facility] Vaccine 00:00:00 [facility] Influenza Virus 2011-04-30 Completed [facility] Vaccine 00:00:00 [facility] Influenza Virus 2011-04-30 Completed [facility] Vaccine 00:00:00 [facility] Influenza Pre-Epic 2011-04-[address] [facility] Influ[facility]-Epic 2011-04-[address] [facility] Influenza Pre-Epic 2011-04-[address] [facility] Influenza Pre-Epic 2011-04-[address] [facility] 00:00:[facility] Influenza Pre-Epic 2011-04-[address] [facility] 00:00:00 [facility] PPD (TB) 2011-04-28 Completed [facility] 00:00:00 [facility] PPD Test 2011-04-[address] [facility] 00:00:00 [facility] PPD (TB) 2011-04-28 Completed [facility] 00:00:00 [facility] PPD (TB) 2011-04-28 Completed [facility] 00:00:00 [facility] PPD (TB) 2011-04-28 Completed [facility] 00:00:00 [facility] PPD (TB) 2011-04-28 Completed [facility] 00:00:00 [facility] PPD (TB) 2011-04-28 Completed [facility] 00:00:00 [facility] PPD (TB) 2011-04-28 Completed [facility] 00:00:00 [facility] PPD (TB) 2011-04-28 Completed [facility] 00:00:00 [facility] PPD (TB) 2011-04-28 Completed [facility] 00:00:00 [facility] PPD (TB) 2011-04-28 Completed [facility] 00:00:00 [facility] PPD (TB) 2011-04-28 Completed [facility] 00:00:00 [facility] PPD (TB) 2011-04-28 Completed [facility] 00:00:[address] [facility] PPD (TB) 2011-04-28 Completed [facility] 00:00:[address] [facility] PPD (TB) 2011-04-28 Completed [facility] 00:00:[address] [facility] PPD (TB) 2011-04-28 Completed [facility] 00:00:[address] [facility] PPD (TB) 2011-04-28 Completed [facility] 00:00:[address] [facility] PPD (TB) 2011-04-28 Completed [facility] 00:00:[address] [facility] PPD (TB) 2011-04-28 Completed [facility] 00:00:[address] [facility] PPD (TB) 2011-04-28 Completed [facility] 00:00:[address] [facility] PPD (TB) 2011-04-28 Completed [facility] 00:00:00 [facility] PPD (TB) 2011-04-28 Completed [facility] 00:00:00 [facility] PPD (TB) 2011-04-28 Completed [facility] 00:00:00 [facility] PPD (TB) 2011-04-28 Completed [facility] 00:00:00 [facility] PPD (TB) 2011-04-28 Completed [facility] 00:00:00 [facility] PPD (TB) 2011-04-28 Completed [facility] 00:00:00 [facility] PPD (TB) 2011-04-28 Completed [facility] 00:00:00 [facility] PPD (TB) 2011-04-28 Completed [facility] 00:00:00 [facility] PPD (TB) 2011-04-28 Completed [facility] 00:00:00 [facility] PPD (TB) 2011-04-28 Completed [facility] 00:00:00 [facility] PPD (TB) 2011-04-28 Completed [facility] 00:00:00 [facility] PPD (TB) 2011-04-28 Completed [facility] 00:00:00 [facility] PPD (TB) 2011-04-28 Completed [facility] 00:00:00 [facility] PPD (TB) 2011-04-28 Completed [facility] 00:00:00 [facility] PPD Test 2011-04-[address] [facility] 00:00:00 [facility] PPD Test 2011-04-[address] [facility] 00:00:00 [facility] PPD Test 2011-04-[address] [facility] 00:00:00 [facility] PPD Test 2011-04-[address] [facility] 00:00:00 [facility] PPD Test 2011-04-[address] [facility] 00:00:00 [facility] Influenza Virus 2010 Completed [facility] Vaccine 00:00:00 [facility] Twinrix (hep a/hep b) 2010 Completed [facility] 00:00:00 [facility] PPD (TB) 2010 Completed [facility] 00:00:00 [facility] Hep A / Hep B [address] [facility] 00:[facility] PPD Test [address] [facility] 00:00:00 [facility] Influenza Pre-Epic [address] [facility] 00:00:00 [facility] Influenza Virus 2010 Completed [facility] Vaccine 00:00:00 [facility] Twinrix (hep a/hep b) 2010 Completed [facility] 00:00:00 [facility] PPD (TB) 2010 Completed [facility] 00:00:00 [facility] Influenza Virus 2010 Completed [facility] Vaccine 00:00:00 [facility] Twinrix (hep a/hep b) 2010 Completed [facility] 00:00:00 [facility] PPD (TB) 2010 Completed [facility] 00:00:00 [facility] Influenza Virus 2010 Completed [facility] Vaccine 00:00:00 [facility] Twinrix (hep a/hep b) 2010 Completed [facility] 00:00:00 [facility] PPD (TB) 2010 Completed [facility] 00:00:00 [facility] Influenza Virus 2010 Completed [facility] Vaccine 00:00:00 [facility] Twinrix (hep a/hep b) 2010 Completed [facility] 00:00:00 [facility] PPD (TB) 2010 Completed [facility] 00:00:00 [facility] Influenza Virus 2010 Completed [facility] Vaccine 00:00:00 [facility] Twinrix (hep a/hep b) 2010 Completed [facility] 00:00:00 [facility] PPD (TB) 2010 Completed [facility] 00:00:00 [facility] Influenza Virus 2010 Completed [facility] Vaccine 00:00:00 [facility] Twinrix (hep a/hep b) 2010 Completed [facility] 00:00:00 [facility] PPD (TB) 2010 Completed [facility] 00:00:00 [facility] Influenza Virus 2010 Completed [facility] Vaccine 00:00:00 [facility] Twinrix (hep a/hep b) 2010 Completed [facility] 00:00:00 [facility] PPD (TB) 2010 Completed [facility] 00:00:00 [facility] Influenza Virus 2010 Completed [facility] Vaccine 00:00:00 [facility] Twinrix (hep a/hep b) 2010 Completed [facility] 00:00:00 [facility] PPD (TB) 2010 Completed [facility] 00:00:00 [facility] Influenza Virus 2010 Completed [facility] Vaccine 00:00:00 [facility] Twinrix (hep a/hep b) 2010 Completed [facility] 00:00:00 [facility] PPD (TB) 2010 Completed [facility] 00:00:00 [facility] Influenza Virus 2010 Completed [facility] Vaccine 00:00:00 [facility] Twinrix (hep a/hep b) 2010 Completed [facility] 00:00:00 [facility] PPD (TB) 2010 Completed [facility] 00:00:00 [facility] Influenza Virus 2010 Completed [facility] Vaccine 00:00:00 [facility] Twinrix (hep a/hep b) 2010 Completed [facility] 00:00:00 [facility] PPD (TB) 2010 Completed [facility] 00:00:00 [facility] Influenza Virus 2010 Completed [facility] Vaccine 00:00:00 [facility] Twinrix (hep a/hep b) 2010 Completed [facility] 00:00:00 [facility] PPD (TB) 2010 Completed [facility] 00:00:00 [facility] Influenza Virus 2010 Completed [facility] Vaccine 00:00:00 [facility] Twinrix (hep a/hep b) 2010 Completed [facility] 00:00:00 [facility] PPD (TB) 2010 Completed [facility] 00:00:00 [facility] Influenza Virus 2010 Completed [facility] Vaccine 00:00:00 [facility] Twinrix (hep a/hep b) 2010 Completed [facility] 00:00:00 [facility] PPD (TB) 2010 Completed [facility] 00:00:00 [facility] Influenza Virus 2010 Completed [facility] Vaccine 00:00:00 [facility] Twinrix (hep a/hep b) 2010 Completed [facility] 00:00:00 [facility] PPD (TB) 2010 Completed [facility] 00:00:00 [facility] Influenza Virus 2010 Completed [facility] Vaccine 00:00:00 [facility] Twinrix (hep a/hep b) 2010 Completed [facility] 00:00:00 [facility] PPD (TB) 2010 Completed [facility] 00:00:00 [facility] Influenza Virus 2010 Completed [facility] Vaccine 00:00:00 [facility] Twinrix (hep a/hep b) 2010 Completed [facility] 00:00:00 [facility] PPD (TB) 2010 Completed [facility] 00:00:00 [facility] Influenza Virus 2010 Completed [facility] Vaccine 00:00:00 [facility] Twinrix (hep a/hep b) 2010 Completed [facility] 00:00:00 [facility] PPD (TB) 2010 Completed [facility] 00:00:00 [facility] Influenza Virus 2010 Completed [facility] Vaccine 00:00:00 [facility] Twinrix (hep a/hep b) 2010 Completed [facility] 00:00:00 [facility] PPD (TB) 2010 Completed [facility] 00:00:00 [facility] Influenza Virus 2010 Completed [facility] Vaccine 00:00:00 [facility] Twinrix (hep a/hep b) 2010 Completed [facility] 00:00:00 [facility] PPD (TB) 2010 Completed [facility] 00:00:00 [facility] Influenza Virus 2010 Completed [facility] Vaccine 00:00:00 [facility] Twinrix (hep a/hep b) 2010 Completed [facility] 00:00:00 [facility] PPD (TB) 2010 Completed [facility] 00:00:00 [facility] Influenza Virus 2010 Completed [facility] Vaccine 00:00:00 [facility] Twinrix (hep a/hep b) 2010 Completed [facility] 00:00:00 [facility] PPD (TB) 2010 Completed [facility] 00:00:00 [facility] Influenza Virus 2010 Completed [facility] Vaccine 00:00:00 [facility] Twinrix (hep a/hep b) 2010 Completed [facility] 00:00:00 [facility] PPD (TB) 2010 Completed [facility] 00:00:00 [facility] Influenza Virus 2010 Completed [facility] Vaccine 00:00:00 [facility] Twinrix (hep a/hep b) 2010 Completed [facility] 00:00:00 [facility] PPD (TB) 2010 Completed [facility] 00:00:00 [facility] Influenza Virus 2010 Completed [facility] Vaccine 00:00:00 [facility] Twinrix (hep a/hep b) 2010 Completed [facility] 00:00:00 [facility] PPD (TB) 2010 Completed [facility] 00:00:00 [facility] Influenza Virus 2010 Completed [facility] Vaccine 00:00:00 [facility] Twinrix (hep a/hep b) 2010 Completed [facility] 00:00:00 [facility] PPD (TB) 2010 Completed [facility] 00:00:00 [facility] Influenza Virus 2010 Completed [facility] Vaccine 00:00:00 [facility] Twinrix (hep a/hep b) 2010 Completed [facility] 00:00:00 [facility] PPD (TB) 2010 Completed [facility] 00:00:00 [facility] Influenza Virus 2010 Completed [facility] Vaccine 00:00:00 [facility] Twinrix (hep a/hep b) 2010 Completed [facility] 00:00:00 [facility] PPD (TB) 2010 Completed [facility] 00:00:00 [facility] Influenza Virus 2010 Completed [facility] Vaccine 00:00:00 [facility] Twinrix (hep a/hep b) 2010 Completed [facility] 00:00:00 [facility] PPD (TB) 2010 Completed [facility] 00:00:00 [facility] Influenza Virus 2010 Completed [facility] Vaccine 00:00:00 [facility] Twinrix (hep a/hep b) 2010 Completed [facility] 00:00:00 [facility] PPD (TB) 2010 Completed [facility] 00:00:00 [facility] Influenza Virus 2010 Completed [facility] Vaccine 00:00:00 [facility] Twinrix (hep a/hep b) 2010 Completed [facility] 00:00:00 [facility] PPD (TB) 2010 Completed [facility] 00:00:00 [facility] Influenza Virus 2010 Completed [facility] Vaccine 00:00:00 [facility] Twinrix (hep a/hep b) 2010 Completed [facility] 00:00:00 [facility] PPD (TB) 2010 Completed [facility] 00:00:00 [facility] Influenza Pre-Epic [address] [facility] 00:00:00 [facility] Hep A / Hep B [address] [facility] 00:[facility]:00 [facility] PPD Test [address] [facility] 00:00:00 [facility] Influenza Pre-Epic [address] [facility] 00[facility]00:00 [facility] Hep A / Hep B [address] [facility] P[facility] Test [address] [facility] Influenza Pre-Epic [address] [facility] 00[facility] Hep A / Hep B [address] [facility] PPD Test [address] [facility] 00:00:00 [facility] Influenza Pre-Epic [address] [facility] 00[facility] Hep A / Hep B [address] [facility] PPD Test [address] [facility] 00:00:00 [facility] Influenza Pre-Epic [address] [facility] 00[facility] Hep A / Hep B [address] [facility] 00[facility]00:00 [facility] PPD Test [address] [facility] 00[facility]00:00 [facility] Twinrix (hep a/hep b) 2009-09-02 Completed [facility] 00:00:[address] [facility] Hep A / Hep B 2009-09-[address] [facility] 00:[facility]:00 [facility] Twinrix (hep a/hep b) 2009-09-02 Completed [facility] 00:00:[address] [facility] Twinrix (hep a/hep b) 2009-09-02 Completed [facility] 00:00:[address] [facility] Twinrix (hep a/hep b) 2009-09-02 Completed [facility] 00:00:[address] [facility] Twinrix (hep a/hep b) 2009-09-02 Completed [facility] 00:00:[address] [facility] Twinrix (hep a/hep b) 2009-09-02 Completed [facility] 00:00:[address] [facility] Twinrix (hep a/hep b) 2009-09-02 Completed [facility] 00:00:[address] [facility] Twinrix (hep a/hep b) 2009-09-02 Completed [facility] 00:00:[address] [facility] Twinrix (hep a/hep b) 2009-09-02 Completed [facility] 00:00:[address] [facility] Twinrix (hep a/hep b) 2009-09-02 Completed [facility] 00:00:[address] [facility] Twinrix (hep a/hep b) 2009-09-02 Completed [facility] 00:00:[address] [facility] Twinrix (hep a/hep b) 2009-09-02 Completed [facility] 00:00:[address] [facility] Twinrix (hep a/hep b) 2009-09-02 Completed [facility] 00:00:00 [facility] Twinrix (hep a/hep b) 2009-09-02 Completed [facility] 00:00:00 [facility] Twinrix (hep a/hep b) 2009-09-02 Completed [facility] 00:00:[address] [facility] Twinrix (hep a/hep b) 2009-09-02 Completed [facility] 00:00:00 [facility] Twinrix (hep a/hep b) 2009-09-02 Completed [facility] 00:00:00 [facility] Twinrix (hep a/hep b) 2009-09-02 Completed [facility] 00:00:00 [facility] Twinrix (hep a/hep b) 2009-09-02 Completed [facility] 00:00:00 [facility] Twinrix (hep a/hep b) 2009-09-02 Completed [facility] 00:00:00 [facility] Twinrix (hep a/hep b) 2009-09-02 Completed [facility] 00:00:00 [facility] Twinrix (hep a/hep b) 2009-09-02 Completed [facility] 00:00:00 [facility] Twinrix (hep a/hep b) 2009-09-02 Completed [facility] 00:00:00 [facility] Twinrix (hep a/hep b) 2009-09-02 Completed [facility] 00:00:00 [facility] Twinrix (hep a/hep b) 2009-09-02 Completed [facility] 00:00:00 [facility] Twinrix (hep a/hep b) 2009-09-02 Completed [facility] 00:00:00 [facility] Twinrix (hep a/hep b) 2009-09-02 Completed [facility] 00:00:00 [facility] Twinrix (hep a/hep b) 2009-09-02 Completed [facility] 00:00:00 [facility] Twinrix (hep a/hep b) 2009-09-02 Completed [facility] 00:00:00 [facility] Twinrix (hep a/hep b) 2009-09-02 Completed [facility] 00:00:00 [facility] Twinrix (hep a/hep b) 2009-09-02 Completed [facility] 00:00:00 [facility] Twinrix (hep a/hep b) 2009-09-02 Completed [facility] 00:00:00 [facility] Twinrix (hep a/hep b) 2009-09-02 Completed [facility] 00:00:00 [facility] Hep A / Hep B 2009-09-02 Completed [facility] Hep A / Hep B 2009-09-[address] [facility] Hep A / Hep B 2009-09-[address] [facility] Hep A / Hep B 2009-09-[address] [facility] Hep A / Hep B 2009-09-[address] [facility] Twinrix (hep a/hep b) 2009-08-05 Completed [facility] 00:00:00 [facility] Hep A / Hep B 2009-08-[address] [facility] Twinrix (hep a/hep b) 2009-08-05 Completed [facility] 00:00:[address] [facility] Twinrix (hep a/hep b) 2009-08-05 Completed [facility] 00:00:[address] [facility] Twinrix (hep a/hep b) 2009-08-05 Completed [facility] 00:00:[address] [facility] Twinrix (hep a/hep b) 2009-08-05 Completed [facility] 00:00:[address] [facility] Twinrix (hep a/hep b) 2009-08-05 Completed [facility] 00:00:[address] [facility] Twinrix (hep a/hep b) 2009-08-05 Completed [facility] 00:00:[address] [facility] Twinrix (hep a/hep b) 2009-08-05 Completed [facility] 00:00:[address] [facility] Twinrix (hep a/hep b) 2009-08-05 Completed [facility] 00:00:00 [facility] Twinrix (hep a/hep b) 2009-08-05 Completed [facility] 00:00:00 [facility] Twinrix (hep a/hep b) 2009-08-05 Completed [facility] 00:00:00 [facility] Twinrix (hep a/hep b) 2009-08-05 Completed [facility] 00:00:[address] [facility] Twinrix (hep a/hep b) 2009-08-05 Completed [facility] 00:00:[address] [facility] Twinrix (hep a/hep b) 2009-08-05 Completed [facility] 00:00:00 [facility] Twinrix (hep a/hep b) 2009-08-05 Completed [facility] 00:00:00 [facility] Twinrix (hep a/hep b) 2009-08-05 Completed [facility] 00:00:00 [facility] Twinrix (hep a/hep b) 2009-08-05 Completed [facility] 00:00:00 [facility] Twinrix (hep a/hep b) 2009-08-05 Completed [facility] 00:00:00 [facility] Twinrix (hep a/hep b) 2009-08-05 Completed [facility] 00:00:00 [facility] Twinrix (hep a/hep b) 2009-08-05 Completed [facility] 00:00:00 [facility] Twinrix (hep a/hep b) 2009-08-05 Completed [facility] 00:00:00 [facility] Twinrix (hep a/hep b) 2009-08-05 Completed [facility] 00:00:00 [facility] Twinrix (hep a/hep b) 2009-08-05 Completed [facility] 00:00:00 [facility] Twinrix (hep a/hep b) 2009-08-05 Completed [facility] 00:00:00 [facility] Twinrix (hep a/hep b) 2009-08-05 Completed [facility] 00:00:00 [facility] Twinrix (hep a/hep b) 2009-08-05 Completed [facility] 00:00:00 [facility] Twinrix (hep a/hep b) 2009-08-05 Completed [facility] 00:00:00 [facility] Twinrix (hep a/hep b) 2009-08-05 Completed [facility] 00:00:00 [facility] Twinrix (hep a/hep b) 2009-08-05 Completed [facility] 00:00:00 [facility] Twinrix (hep a/hep b) 2009-08-05 Completed [facility] 00:00:00 [facility] Twinrix (hep a/hep b) 2009-08-05 Completed [facility] 00:00:00 [facility] Twinrix (hep a/hep b) 2009-08-05 Completed [facility] 00:00:00 [facility] Twinrix (hep a/hep b) 2009-08-05 Completed [facility] 00:00:00 [facility] Hep A / Hep B 2009-08-[address] [facility] 00:[facility]:00 [facility] Hep A / Hep B 2009-08-[address] [facility] 00:[facility]:00 [facility] Hep A / Hep B 2009-08-[address] [facility] 00[facility]00:00 [facility] Hep A / Hep B 2009-08-[address] [facility] 00:00:00 [facility] Hep A / Hep B 2009-08-[address] [facility] 00[facility]00:00 [facility] H1n1 Vaccine 2009-05-05 Completed [facility] 00:00:00 [facility] H1n1 Vaccine 2009-05-05 Completed [facility] 00:00:00 [facility] H1n1 Vaccine 2009-05-05 Completed [facility] 00:00:00 [facility] H1n1 Vaccine 2009-05-05 Completed [facility] 00:00:00 [facility] H1n1 Vaccine 2009-05-05 Completed [facility] 00:00:00 [facility] H1n1 Vaccine 2009-05-05 Completed [facility] 00:00:00 [facility] H1n1 Vaccine 2009-05-05 Completed [facility] 00:00:00 [facility] H1n1 Vaccine 2009-05-05 Completed [facility] 00:00:00 [facility] H1n1 Vaccine 2009-05-05 Completed [facility] 00:00:00 [facility] H1n1 Vaccine 2009-05-05 Completed [facility] 00:00:00 [facility] H1n1 Vaccine 2009-05-05 Completed [facility] 00:00:00 [facility] H1n1 Vaccine 2009-05-05 Completed [facility] 00:00:00 [facility] H1n1 Vaccine 2009-05-05 Completed [facility] 00:00:00 [facility] H1n1 Vaccine 2009-05-05 Completed [facility] 00:00:00 [facility] H1n1 Vaccine 2009-05-05 Completed [facility] 00:00:00 [facility] H1n1 Vaccine 2009-05-05 Completed [facility] 00:00:00 [facility] H1n1 Vaccine 2009-05-05 Completed [facility] 00:00:00 [facility] H1n1 Vaccine 2009-05-05 Completed [facility] 00:00:00 [facility] H1n1 Vaccine 2009-05-05 Completed [facility] 00:00:00 [facility] H1n1 Vaccine 2009-05-05 Completed [facility] 00:00:00 [facility] H1n1 Vaccine 2009-05-05 Completed [facility] 00:00:00 [facility] H1n1 Vaccine 2009-05-05 Completed [facility] 00:00:00 [facility] H1n1 Vaccine 2009-05-05 Completed [facility] 00:00:00 [facility] H1n1 Vaccine 2009-05-05 Completed [facility] 00:00:00 [facility] H1n1 Vaccine 2009-05-05 Completed [facility] 00:00:00 [facility] H1n1 Vaccine 2009-05-05 Completed [facility] 00:00:00 [facility] H1n1 Vaccine 2009-05-05 Completed [facility] 00:00:00 [facility] H1n1 Vaccine 2009-05-05 Completed [facility] 00:00:00 [facility] H1n1 Vaccine 2009-05-05 Completed [facility] 00:00:00 [facility] H1n1 Vaccine 2009-05-05 Completed [facility] 00:00:00 [facility] H1n1 Vaccine 2009-05-05 Completed [facility] 00:00:00 [facility] H1n1 Vaccine 2009-05-05 Completed [facility] 00:00:00 [facility] H1n1 Vaccine 2009-05-05 Completed [facility] 00:00:00 [facility] Influenza Virus 2009-02-28 Completed Universit y of Vaccine 00:00:00 [facility] Pneumococcal 2009-02-28 Completed University o f Polysaccharide, 00:00:00 [place] [facility] PPSV23 (PNEUMOVAX) [place] PPD (TB) 2009-02-28 Completed University of 00:00:00 [facility] PPD Test 2009-02-[address] [facility] 00:00:00 [facility] Pneumococcal 2009-02-[address] [facility] Polysaccharide 00:00:00 Medical nter (Pneumovax) Influenza Pre-Epic 2009-02-[address] [facility] 00:00:00 [facility] Pneumococcal 2009-02-28 Completed University o f Polysaccharide, 00:00:00 [place] [facility] PPSV23 (PNEUMOVAX) Branch PPD (TB) 2009-02-28 Completed University of 00:00:00 [facility] Influenza Virus 2009-02-28 Completed Universit y of Vaccine 00:00:00 [facility] Pneumococcal 2009-02-28 Completed University o f Polysaccharide, 00:00:00 [place] [facility] PPSV23 (PNEUMOVAX) Branch PPD (TB) 2009-02-28 Completed University of 00:00:00 [facility] Influenza Virus 2009-02-28 Completed Universit y of Vaccine 00:00:00 [facility] Pneumococcal 2009-02-28 Completed University o f Polysaccharide, 00:00:00 [place] [facility] PPSV23 (PNEUMOVAX) Branch PPD (TB) 2009-02-28 Completed University of 00:00:00 [facility] Influenza Virus 2009-02-28 Completed Universit y of Vaccine 00:00:00 [facility] Pneumococcal 2009-02-28 Completed University o f Polysaccharide, 00:00:00 [place] [facility] PPSV23 (PNEUMOVAX) Branch PPD (TB) 2009-02-28 Completed University of 00:00:00 [facility] Influenza Virus 2009-02-28 Completed Universit y of Vaccine 00:00:00 [facility] Pneumococcal 2009-02-28 Completed University o f Polysaccharide, 00:00:00 [place] [facility] PPSV23 (PNEUMOVAX) Branch PPD (TB) 2009-02-28 Completed University of 00:00:00 [facility] Influenza Virus 2009-02-28 Completed Universit y of Vaccine 00:00:00 [facility] Pneumococcal 2009-02-28 Completed University o f Polysaccharide, 00:00:00 [place] [facility] PPSV23 (PNEUMOVAX) Branch PPD (TB) 2009-02-28 Completed University of 00:00:00 [facility] Influenza Virus 2009-02-28 Completed Universit y of Vaccine 00:00:00 [facility] Pneumococcal 2009-02-28 Completed University o f Polysaccharide, 00:00:00 [place] [facility] PPSV23 (PNEUMOVAX) Branch PPD (TB) 2009-02-28 Completed University of 00:00:00 [facility] Influenza Virus 2009-02-28 Completed Universit y of Vaccine 00:00:00 [facility] Pneumococcal 2009-02-28 Completed University o f Polysaccharide, 00:00:00 [place] [facility] PPSV23 (PNEUMOVAX) Branch PPD (TB) 2009-02-28 Completed University of 00:00:00 [facility] Influenza Virus 2009-02-28 Completed Universit y of Vaccine 00:00:00 [facility] Pneumococcal 2009-02-28 Completed University o f Polysaccharide, 00:00:00 [place] [facility] PPSV23 (PNEUMOVAX) Branch PPD (TB) 2009-02-28 Completed University of 00:00:00 [facility] Influenza Virus 2009-02-28 Completed Universit y of Vaccine 00:00:00 [facility] Pneumococcal 2009-02-28 Completed University o f Polysaccharide, 00:00:00 [place] [facility] PPSV23 (PNEUMOVAX) Branch PPD (TB) 2009-02-28 Completed University of 00:00:00 [facility] Influenza Virus 2009-02-28 Completed Universit y of Vaccine 00:00:00 [facility] Pneumococcal 2009-02-28 Completed University o f Polysaccharide, 00:00:00 [place] [facility] PPSV23 (PNEUMOVAX) Branch PPD (TB) 2009-02-28 Completed University of 00:00:00 [facility] Influenza Virus 2009-02-28 Completed Universit y of Vaccine 00:00:00 [facility] Pneumococcal 2009-02-28 Completed University o f Polysaccharide, 00:00:00 [place] [facility] PPSV23 (PNEUMOVAX) Branch PPD (TB) 2009-02-28 Completed University of 00:00:00 [facility] Influenza Virus 2009-02-28 Completed Universit y of Vaccine 00:00:00 [facility] Pneumococcal 2009-02-28 Completed University o f Polysaccharide, 00:00:00 [place] [facility] PPSV23 (PNEUMOVAX) Branch PPD (TB) 2009-02-28 Completed University of 00:00:00 [facility] Influenza Virus 2009-02-28 Completed Universit y of Vaccine 00:00:00 [facility] Pneumococcal 2009-02-28 Completed University o f Polysaccharide, 00:00:00 [place] [facility] PPSV23 (PNEUMOVAX) Branch PPD (TB) 2009-02-28 Completed University of 00:00:00 [facility] Influenza Virus 2009-02-28 Completed Universit y of Vaccine 00:00:00 [facility] Pneumococcal 2009-02-28 Completed University o f Polysaccharide, 00:00:00 [place] [facility] PPSV23 (PNEUMOVAX) Branch PPD (TB) 2009-02-28 Completed University of 00:00:00 [facility] Influenza Virus 2009-02-28 Completed Universit y of Vaccine 00:00:00 [facility] Pneumococcal 2009-02-28 Completed University o f Polysaccharide, 00:00:00 [place] [facility] PPSV23 (PNEUMOVAX) Branch PPD (TB) 2009-02-28 Completed University of 00:00:00 [facility] Influenza Virus 2009-02-28 Completed Universit y of Vaccine 00:00:00 [facility] Pneumococcal 2009-02-28 Completed [facility] o f Polysaccharide, 00:00:00 [place] [facility] PPSV23 (PNEUMOVAX) Branch PPD (TB) 2009-02-28 Completed University of 00:00:00 [facility] Influenza Virus 2009-02-28 Completed Universit y of Vaccine 00:00:00 [facility] Pneumococcal 2009-02-28 Completed [facility] o f Polysaccharide, 00:00:00 [place] [facility] PPSV23 (PNEUMOVAX) Branch PPD (TB) 2009-02-28 Completed University of 00:00:00 [facility] Influenza Virus 2009-02-28 Completed Universit y of Vaccine 00:00:00 [facility] Pneumococcal 2009-02-28 Completed University o f Polysaccharide, 00:00:00 [place] [facility] PPSV23 (PNEUMOVAX) Branch PPD (TB) 2009-02-28 Completed University of 00:00:00 [facility] Influenza Virus 2009-02-28 Completed Universit y of Vaccine 00:00:00 [facility] Pneumococcal 2009-02-28 Completed University o f Polysaccharide, 00:00:00 [place] [facility] PPSV23 (PNEUMOVAX) Branch PPD (TB) 2009-02-28 Completed University of 00:00:00 [facility] Influenza Virus 2009-02-28 Completed Universit y of Vaccine 00:00:00 [facility] Pneumococcal 2009-02-28 Completed University o f Polysaccharide, 00:00:00 [place] [facility] PPSV23 (PNEUMOVAX) Branch PPD (TB) 2009-02-28 Completed University of 00:00:00 [facility] Influenza Virus 2009-02-28 Completed Universit y of Vaccine 00:00:00 [facility] Pneumococcal 2009-02-28 Completed University o f Polysaccharide, 00:00:00 [place] [facility] PPSV23 (PNEUMOVAX) Branch PPD (TB) 2009-02-28 Completed University of 00:00:00 [facility] Influenza Virus 2009-02-28 Completed Universit y of Vaccine 00:00:00 [facility] Pneumococcal 2009-02-28 Completed University o f Polysaccharide, 00:00:00 [place] [facility] PPSV23 (PNEUMOVAX) Branch PPD (TB) 2009-02-28 Completed University of 00:00:00 [facility] Influenza Virus 2009-02-28 Completed Universit y of Vaccine 00:00:00 [facility] Pneumococcal 2009-02-28 Completed University o f Polysaccharide, 00:00:00 [place] [facility] PPSV23 (PNEUMOVAX) Branch PPD (TB) 2009-02-28 Completed University of 00:00:00 [facility] Influenza Virus 2009-02-28 Completed Universit y of Vaccine 00:00:00 [facility] Pneumococcal 2009-02-28 Completed University o f Polysaccharide, 00:00:00 [place] [facility] PPSV23 (PNEUMOVAX) Branch PPD (TB) 2009-02-28 Completed University of 00:00:00 [facility] Influenza Virus 2009-02-28 Completed Universit y of Vaccine 00:00:00 [facility] Pneumococcal 2009-02-28 Completed University o f Polysaccharide, 00:00:00 [place] [facility] PPSV23 (PNEUMOVAX) Branch PPD (TB) 2009-02-28 Completed University of 00:00:00 [facility] Influenza Virus 2009-02-28 Completed Universit y of Vaccine 00:00:00 [facility] Pneumococcal 2009-02-28 Completed University o f Polysaccharide, 00:00:00 [place] [facility] PPSV23 (PNEUMOVAX) Branch PPD (TB) 2009-02-28 Completed University of 00:00:00 [facility] Influenza Virus 2009-02-28 Completed Universit y of Vaccine 00:00:00 [facility] Pneumococcal 2009-02-28 Completed University o f Polysaccharide, 00:00:00 [place] [facility] PPSV23 (PNEUMOVAX) Branch PPD (TB) 2009-02-28 Completed University of 00:00:00 [facility] Influenza Virus 2009-02-28 Completed Universit y of Vaccine 00:00:00 [facility] Pneumococcal 2009-02-28 Completed University o f Polysaccharide, 00:00:00 [place] [facility] PPSV23 (PNEUMOVAX) Branch PPD (TB) 2009-02-28 Completed University of 00:00:00 [facility] Influenza Virus 2009-02-28 Completed Universit y of Vaccine 00:00:00 [facility] Pneumococcal 2009-02-28 Completed University o f Polysaccharide, 00:00:00 [place] [facility] PPSV23 (PNEUMOVAX) Branch PPD (TB) 2009-02-28 Completed University of 00:00:00 [facility] Influenza Virus 2009-02-28 Completed Universit y of Vaccine 00:00:00 [facility] Pneumococcal 2009-02-28 Completed University o f Polysaccharide, 00:00:00 [place] [facility] PPSV23 (PNEUMOVAX) Branch PPD (TB) 2009-02-28 Completed University of 00:00:00 [facility] Influenza Virus 2009-02-28 Completed Universit y of Vaccine 00:00:00 [facility] Pneumococcal 2009-02-28 Completed University o f Polysaccharide, 00:00:00 [place] [facility] PPSV23 (PNEUMOVAX) Branch PPD (TB) 2009-02-28 Completed University of 00:00:00 [facility] Influenza Virus 2009-02-28 Completed Universit y of Vaccine 00:00:00 [facility] Pneumococcal 2009-02-[address] [facility] Polysaccharide 00:00:00 Medical Ce nter (Pneumovax) Influenza Pre-Epic 2009-02-[address] [facility] 00:00:00 [facility] PPD Test 2009-02-[address] [facility] 00:00:00 [facility] Pneumococcal 2009-02-[address] [facility] Polysaccharide 00:00:00 [facility] Ce [facility]ter (Pneumovax) Influenza Pre-Epic 2009-02-[address] [facility] 00:00:00 [facility] PPD Test 2009-02-[address] [facility] 00:00:00 [facility] Pneumococcal 2009-02-[address] [facility] Polysaccharide 00:00:00 [facility] Ce nter (Pneumovax) Influenza Pre-Epic 2009-02-[address] [facility] 00:00:00 [facility] PPD Test 2009-02-[address] [facility] 00:00:00 [facility] Pneumococcal 2009-02-[address] [facility] Polysaccharide 00:00:00 [facility] Ce nter (Pneumovax) Influenza Pre-Epic 2009-02-[address] [facility] 00:00:00 [facility] PPD Test 2009-02-[address] [facility] 00:00:00 [facility] Pneumococcal 2009-02-[address] [facility] Polysaccharide 00:00:00 [facility] Ce nter (Pneumovax) Influenza Pre-Epic 2009-02-[address] [facility] 00:00:00 [facility] PPD Test 2009-02-[address] [facility] 00:00:00 [facility] PPD (TB) 2007-06-06 Completed University of 00:00:00 [facility] PPD Test 2007-06-[address] [facility] 00:00:00 [facility] PPD (TB) 2007-06-06 Completed University of 00:00:00 [facility] PPD (TB) 2007-06-06 Completed University of 00:00:00 [facility] PPD (TB) 2007-06-06 Completed University of 00:00:00 [facility] PPD (TB) 2007-06-06 Completed University of 00:00:00 [facility] PPD (TB) 2007-06-06 Completed University of 00:00:00 [facility] PPD (TB) 2007-06-06 Completed University of 00:00:00 [facility] PPD (TB) 2007-06-06 Completed University of 00:00:00 [facility] PPD (TB) 2007-06-06 Completed University of 00:00:00 [facility] PPD (TB) 2007-06-06 Completed University of 00:00:00 [facility] PPD (TB) 2007-06-06 Completed University of 00:00:00 [facility] PPD (TB) 2007-06-06 Completed University of 00:00:00 [facility] PPD (TB) 2007-06-06 Completed University of 00:00:00 [facility] PPD (TB) 2007-06-06 Completed University of 00:00:00 [facility] PPD (TB) 2007-06-06 Completed University of 00:00:00 [facility] PPD (TB) 2007-06-06 Completed University of 00:00:00 [facility] PPD (TB) 2007-06-06 Completed University of 00:00:00 [facility] PPD (TB) 2007-06-06 Completed University of 00:00:[address] [facility] Branch PPD (TB) 2007-06-06 Completed University of 00:00:[address] [facility] Branch PPD (TB) 2007-06-06 Completed University of 00:00:00 [facility] PPD (TB) 2007-06-06 Completed University of 00:00:00 [facility] PPD (TB) 2007-06-06 Completed University of 00:00:[address] [facility] Branch PPD (TB) 2007-06-06 Completed University of 00:00:[address] [facility] PPD (TB) 2007-06-06 Completed University of 00:00:00 [facility] PPD (TB) 2007-06-06 Completed University of 00:00:00 [facility] PPD (TB) 2007-06-06 Completed University of 00:00:00 [facility] PPD (TB) 2007-06-06 Completed University of 00:00:00 [facility] PPD (TB) 2007-06-06 Completed University of 00:00:00 [facility] PPD (TB) 2007-06-06 Completed University of 00:00:00 [facility] PPD (TB) 2007-06-06 Completed University of 00:00:00 [facility] PPD (TB) 2007-06-06 Completed University of 00:00:00 [facility] PPD (TB) 2007-06-06 Completed University of 00:00:00 [facility] PPD (TB) 2007-06-06 Completed University of 00:00:00 [facility] PPD Test 2007-06-[address] [facility] 00:00:00 [facility] PPD Test 2007-06-[address] [facility] 00:00:00 [facility] PPD Test 2007-06-[address] [facility] 00:00:00 [facility] PPD Test 2007-06-[address] [facility] 00:00:00 [facility] PPD Test 2007-06-[address] [facility] 00:00:00 [facility] Vital Signs Vital Name Observation Time Observation Value Comments Source Systolic blood 2022-05-13 107 mm[Hg] [facility] pressure 22:39:00 [facility] Diastolic blood 2022-05-13 72 mm[Hg] [place] o f pressure 22:39:00 [facility] Heart rate 2022-05-13 96 /min [facility] 22:39:00 [facility] Body temperature 2022-05-13 36.67 [facility] 22:39:00 [facility] Respiratory rate 2022-05-13 18 /min [facility] 22:39:00 [facility] Oxygen saturation 2022-05-13 99 /min [facility] Arterial blood 22:39:00 [facility] by Pulse oximetry [place] Body weight 2022-05-13 58.469 kg University of 09:03:00 [facility] BMI 2022-05-13 20.81 kg/m2 University of 09:03:00 [facility] Body height 2022-05-12 167.6 cm University of 23:25:00 [facility] Systolic blood 2022-02-11 116 mm[Hg] University of pressure 11:00:[address] [facility] Branch Diastolic blood 2022-02-11 67 mm[Hg] University o f pressure 11:00:00 [facility] Heart rate 2022-02-11 92 /min University of 11:00:00 [facility] Respiratory rate 2022-02-11 17 /min University of 11:00:00 [facility] Oxygen saturation 2022-02-11 100 /min University of in Arterial blood 11:00:00 [facility] coco by Pulse oximetry Branch Body temperature 2022-02-11 36.33 [facility] University of 07:23:00 [facility] Body height 2022-02-11 157.5 cm University of 07:23:00 [facility] Body weight 2022-02-11 60.328 kg University of 07:23:00 [facility] BMI 2022-02-11 24.33 kg/m2 University of 07:23:00 [facility] Systolic blood 2022-01-21 113 mm[Hg] University of pressure 18:23:00 [facility] Diastolic blood 2022-01-21 72 mm[Hg] University o f pressure 18:23:00 [facility] Heart rate 2022-01-21 98 /min University of 18:23:00 [facility] Body weight 2022-01-21 60.464 kg University of 18:23:00 [facility] BMI 2022-01-21 23.61 kg/m2 University of 18:23:00 [facility] Oxygen saturation 2022-01-21 97 /min University of in Arterial blood 18:23:00 [facility] coco by Pulse oximetry Branch Systolic blood 2022-01-05 121 mm[Hg] University of pressure 18:40:00 [facility] Diastolic blood 2022-01-05 82 mm[Hg] University o f pressure 18:40:00 [facility] Heart rate 2022-01-05 98 /min University of 18:40:00 [facility] Body temperature 2022-01-05 37.11 [facility] of 18:40:00 [facility] Respiratory rate 2022-01-05 18 /min University of 18:40:00 [facility] Body height 2022-01-05 160 cm University of 18:40:00 [facility] Body weight 2022-01-05 56.155 kg [facility] 18:40:00 [facility] BMI 2022-01-05 21.93 kg/m2 [facility] 18:40:00 [facility] Oxygen saturation 2022-01-05 98 /min on 5L Nasal [facility] in Arterial blood 18:40:00 cannula [facility] by Pulse oximetry [place] Oxygen saturation 2020-10-08 97 /min [facility] in Arterial blood 11:27:00 by Pulse oximetry Systolic blood 2020-10-08 125 mm[Hg] [facility] pressure 11:10:00 Diastolic blood 2020-10-08 80 mm[Hg] [facility] h pressure 11:10:00 Heart rate 2020-10-08 94 /min [facility] 11:10:00 Body temperature 2020-10-08 36.56 Ze[facility] 11:10:00 Respiratory rate 2020-10-08 18 /min [facility] 11:10:00 Body weight 2020-10-08 66.815 kg [facility] 04:05:00 BMI 2020-10-08 26.09 kg/m2 [facility] 04:05:00 Body height 2020-10-06 160 cm [facility] 04:28:00 Procedures Procedure Date / Time Performing Clinician Source Performed URINE DRUG (IMMUNOASSAY) 2022-05-13 15:30:00 Florence Solitario [facility] nc SCREEN MAGNESIUM 2022-05-13 09:27:00 Kelly Wing [facility] BASIC METABOLIC PANEL 2022-05-13 09:27:00 Kelly Wing [facility] (NA, K, CL, CO2, GLUCOSE, Medica l Branch BUN, CREATININE, CA) CBC WITH DIFF 2022-05-13 09:27:00 Kelly Wing [facility] PROCALCITONIN 2022-05-13 09:27:00 Benny Aguilar [place] o f [facility] XR CHEST 1 VW 2022-05-12 20:24:56 Leona Armijo [facility] COMP. METABOLIC PANEL 2022-05-12 20:12:00 Leona Armijo [facility] ([id number]) [facility] CBC WITH DIFF 2022-05-12 19:27:00 Leona Armijo [facility] RAPID INFLUENZA A/B 2022-05-12 19:27:00 Leona Armijo [facility] COVID-19 (ID NOW RAPID 2022-05-12 19:27:00 Leona Armijo [facility] TESTING) Medical Branch LAB ONLY COVID 2022-05-12 19:27:00 Leona Armijo [facility] INTERPRETATION [facility] Branch EMERGENCY DEPARTMENT 2022-05-12 06:01:00 Doctor Rebecca, [facility] DOCUMENTS [facility] [place] DME/SUPPLY JUSTIFICATION 2022-02-19 06:01:00 Doctor Rebecca, [facility] Name Medical [place] EKG-12 LEAD 2022-02-11 10:52:02 Lisa Mosley [facility] XR CHEST 1 VW 2022-02-11 08:02:49 Lisa Mosley [facility] TROPONIN I 2022-02-11 07:34:00 Lisa Mosley [facility] COMP. METABOLIC PANEL 2022-02-11 07:34:00 Lisa Mosley [facility] ([id number]) [facility] CBC WITH DIFF 2022-02-11 07:34:00 Lisa Mosley [facility] N-TERMINAL PRO-BNP 2022-02-11 07:34:00 Lisa Mosley [facility] AUTHORIZATION FOR RELEASE 2021-11-10 05:01:00 Doctor Rebecca, [facility] OF [facility] INSURANCE CORRESPONDENCE 2021-10-21 05:01:00 Doctor Rebecca, [facility] Name Medical Branch DME/SUPPLY JUSTIFICATION 2021-10-09 05:01:00 Doctor Rebecca, [facility] Name Medical [place] CBC (WITHOUT 2020-10-08 04:45:00 Frank Xiong DIFFERENTIAL) BASIC METABOLIC PANEL 2020-10-08 04:45:00 Frank Xiong [facility] 2020-10-08 04:45:00 Frank Xiongt h PHOSPHORUS 2020-10-08 04:45:00 Frank Xiong CBC 2020-10-05 03:24:00 Kwaku Kelly [facility] BASIC METABOLIC PANEL 2020-10-05 03:24:00 Kwaku Kelly [facility] Health MAGNESIUM 2020-10-05 03:24:00 Kwaku Kelly [facility] PHOSPHORUS 2020-10-05 03:24:00 Robin Kwaku L [facility] CBC/DIFF 2020-10-05 03:24:00 Kwaku Kelly [facility] GLUCOSE POC 2020-10-04 20:45:00 Kwaku Kelly [facility] SARS-COV-2, FLU A/B, RSV 2020-10-04 16:41:00 Kwaku Kelly [facility] CORONAVIRUS, COVID-19, 2020-10-04 16:41:00 Vivek Felipe [facility] JAYLYN 12 LEAD EKG 2020-10-04 14:13:11 Robbie Estes [facility] 12 LEAD EKG 2020-10-04 14:13:03 Meron Valente [facility] TROPONIN I 2020-10-04 14:06:00 Meron Valente [facility] XRAY CHEST 1 VIEW 2020-10-04 10:46:[address] [facility] 12 LEAD EKG 2020-10-04 10:11:18 Robbie Estes [facility] CBC/DIFF 2020-10-04 09:51:00 Robbie Estes [facility] BASIC METABOLIC PANEL 2020-10-04 09:51:00 Robbie Estes [facility] CBC 2020-10-04 09:51:00 Robbie Estes [facility] TROPONIN I 2020-10-04 09:51:00 Meron Valente [facility] Plan of Care Planned Activity Planned Date Details Comments Source Future Scheduled 2022-01-[address] [facility] Test 00:00:00 Seasonal (>/= 19 yrs) [code = IMM Influenza Seasonal (>/= 19 yrs)] Future Scheduled 2021-05-25 DTaP,Tdap,and Td Univers ity of Test 00:00:00 Vaccines (2 - Td) [facility] [code = Branch DTaP,Tdap,and Td Vaccines (2 - Td)] Future Scheduled 2021-01-09 [facility]MM Influenza [facility] 00:[facility]:00 Seasonal Oct to June (>/= 19 yrs) [code = IMM Influenza Seasonal Oct to June (>/= 19 yrs)] Future Scheduled 2021-01-09 [facility]MM Influ[facility] Test 00:00:00 Seasonal Oct to June (>/= 19 yrs) [code = IMM Influenza Seasonal Oct to June (>/= 19 yrs)] Future Scheduled 2021-01-09 [facility] Influ[facility] Test 00:00:00 Seasonal (>/= 19 yrs) [code = IMM Influenza Seasonal (>/= 19 yrs)] Future Scheduled 2021-01-09 [facility]MM Influenza [facility] Test 00:00:00 Seasonal (>/= 19 yrs) [code = IMM Influenza Seasonal (>/= 19 yrs)] Future Scheduled 2021-01-09 [facility]MM Influenza [facility] Test 00:00:00 Seasonal (>/= 19 yrs) [code = IMM Influenza Seasonal (>/= 19 yrs)] Future Scheduled 2021-01-07 Depression screening Uni versity of Test 00:00:00 (procedure) [code = [facility] [id number]] Branch Future Scheduled 2021-01-07 Zoster Recombinant Postponed from Uni versity of Test 00:00:00 Vaccine (SHINGRIX) 2015 [facility] ica (1 of 2) [code = (Insurance / Branch Zoster Recombinant Financial) Vaccine (SHINGRIX) (1 of 2)] Future Scheduled 2020-08-11 Screening for University of Test 00:00:00 malignant neoplasm [facility] ica of cervix Branch (procedure) [code = 252441110] Future Scheduled 2020-02-18 Screening for University of Test 00:00:00 malignant neoplasm [facility] ica of lung (procedure) Branch [code = 822656079] Future Scheduled 2015 Screening for [facility] Test 00:00:00 malignant neoplasm of colon (procedure) [code = 618343842] Future Scheduled 2015 Screening for [facility] Test 00:00:00 malignant neoplasm of colon (procedure) [code = 571016795] Future Scheduled 2015 Screening for [facility] Test 00:00:00 malignant neoplasm of colon (procedure) [code = 692711007] Future Scheduled 2015 Screening for [facility] Test 00:00:00 malignant neoplasm of colon (procedure) [code = 114780918] Future Scheduled 2015 Screening for [facility] Test 00:00:00 malignant neoplasm of colon (procedure) [code = 844950109] Future Scheduled 2015 Screening for [facility] Test 00:00:00 malignant neoplasm of colon (procedure) [code = 656839694] Future Scheduled 2015 Screening for occult Uni versity of Test 00:00:00 blood in feces [facility] (procedure) [code = Branch 700106681] Future Scheduled 2015 Stool DNA-based Universi ty of Test 00:00:00 colorectal cancer [facility] screening Branch (procedure) [code = 241083632093129] Future Scheduled 2015 Flexible fiberoptic Univ ersity of Test 00:00:[address] [facility] (procedure) [code = Branch [id number]] Future Scheduled 2015 Screening for University of Test 00:00:00 malignant neoplasm [place] [facility] of colon (procedure) Branch [code = 212228763] Future Scheduled 2015 Screening for University of Test 00:00:00 malignant neoplasm [place] [facility] of colon (procedure) Branch [code = 035030814] Future Scheduled 2010-06-18 Screening for [facility] 00:00:00 malignant neoplasm [place] [facility] breast [place] (procedure) [code = 774600316] Future Scheduled 2005 Breast Cancer Sc[facility] 00:00:00 (Yearly) [code = Breast Cancer Scrn (Yearly)] Future Scheduled 2005 Breast Cancer Sc[facility] 00:00:00 (Yearly) [code = Breast Cancer Scrn (Yearly)] Future Scheduled 2005 Breast Cancer Sc[facility] 00:00:00 (Yearly) [code = Breast Cancer Scrn (Yearly)] Future Scheduled 2005 Breast Cancer [facility] 00:00:00 (Yearly) [code = Breast Cancer Scrn (Yearly)] Future Scheduled 2005 [facility] Cancer [facility] 00:00:00 (Yearly) [code = Breast Cancer Scrn (Yearly)] Future Scheduled 2005 Breast Cancer [facility] 00:00:00 (Yearly) [code = Breast Cancer Scrn (Yearly)] Future Scheduled 1995 [facility]00 malignant neoplasm of cervix (procedure) [code = 929458682] Future Scheduled 1995 [facility] 00:[facility]:00 malignant neoplasm of cervix (procedure) [code = 947861451] Future Scheduled 1995 [facility] 00:[facility]:00 malignant neoplasm of cervix (procedure) [code = 549785537] Future Scheduled 1995 [facility] 00:00:00 malignant neoplasm of cervix (procedure) [code = 224266809] Future Scheduled 1995 [facility] 00:00:00 malignant neoplasm of cervix (procedure) [code = 941273729] Future Scheduled 1995 [facility] 00:00:00 malignant neoplasm of cervix (procedure) [code = 223028221] Future Scheduled 1995 [facility] 00:00:00 malignant neoplasm of cervix (procedure) [code = 295509241] Future Scheduled 1995 [facility] 00:00:00 malignant neoplasm of cervix (procedure) [code = 105962490] Future Scheduled 1995 [facility] 00:00:00 malignant neoplasm of cervix (procedure) [code = 191067680] Future Scheduled 1995 [facility] 00:00:00 malignant neoplasm of cervix (procedure) [code = 100831913] Future Scheduled 1995 [facility] 00:00:00 malignant neoplasm of cervix (procedure) [code = 748410090] Future Scheduled 1995 [facility] 00:00:00 malignant neoplasm of cervix (procedure) [code = 168625279] Future Scheduled 1981 SARS-CoV-2 [facility] 00:00:00 (COVID-19) Vaccine [place] [facility] (1) [code = Branch SARS-CoV-2 (COVID-19) Vaccine (1)] Future Scheduled 1977 COVID-19 Vaccine (1) [facility] 00:00:00 [code = COVID-19 Vaccine (1)] Future Scheduled 1977 COVID-19 Vaccine (1) [facility] 00:00:00 [code = COVID-19 Vaccine (1)] Future Scheduled 1977 COVID-19 Vaccine (1) [facility] 00:00:00 [code = COVID-19 Vaccine (1)] Future Scheduled 1977 COVID-19 Vaccine (1) [facility] 00:00:00 [code = COVID-19 Vaccine (1)] Future Scheduled 1977 COVID-19 Vaccine (1) [facility] 00[facility]00:00 [code = COVID-19 Vaccine (1)] Future Scheduled 1971 Imm Pneumococcal [facility] 00:00:00 0-64 (1 - PCV) [code = Imm Pneumococcal 0-64 (1 - PCV)] Future Scheduled 1971 Imm Pneumococcal [facility] 00:00:00 0-64 (1 of 4 - PCV13) [code = Imm Pneumococcal 0-64 (1 of 4 - PCV13)] Future Scheduled 1971 Imm Pneumococcal [facility] 00:00:00 0-64 (1 of 4 - PCV13) [code = Imm Pneumococcal 0-64 (1 of 4 - PCV13)] Future Scheduled 1971 Imm Pneumococcal [facility] 00:00:00 0-64 (1 - PCV) [code = Imm Pneumococcal 0-64 (1 - PCV)] Future Scheduled 1971 Imm Pneumococcal [facility] 00:00:00 0-64 (1 - PCV) [code = Imm Pneumococcal 0-64 (1 - PCV)] Future Scheduled 1971 Imm Pneumococcal [facility] 00:00:00 0-64 (1 - PCV) [code = Imm Pneumococcal 0-64 (1 - PCV)] Future Scheduled 1965 COVID-19 Vaccine [facility] 00:00:00 (#1) [code = COVID-19 Vaccine (#1)] Encounters Start End Encounter Admission Attending Care Care Encounter Source Date/Time Date/Time Type Type Clinicians Facility Department ID 2021-10-22 Outpatient [facility] [id number] [place] 22:35:20 [id number] Health 2021-02-[address] [facility] [id number] Univers 20:41:52 ity of [facility] 2021-02-[address] [facility] [id number] Univers 20:08:44 ity of [facility] 2021-02-[address] [facility] [id number] Univers 15:03:39 ity of [facility] 2021-02-[address] [facility] [id number] Univers 14:47:07 ity of [facility] 2021-02-[address] [facility] [id number] Univers 17:45:37 ity of [facility] 2021-02-[address] [facility] [id number] Univers 23:48:46 ity of [facility] 2021-02-[address] [facility] [id number] Univers 23:48:21 ity of [facility] 2021-02-[address] [facility] [id number] Univers 22:27:49 ity of [facility] 2021-02-[address] [facility] [id number] Univers 14:10:03 ity [facility] 2022-05-26 2022-05-[address] ACUÑA [facility] [id number] Univers 15:00:00 15:00:00 TENA itaminah [facility] 2022-05-14 2022-05-14 Transition BO Richardson 1.2.840.114 [id number] Univers 00:00:00 00:00:00 of Care Jie ZAPATA 350.1.13.10 i [place] [id number] [place] [address] [place] 2022-05-12 2022-05-13 Outpatient Enid SOLITARIO [facility] [id number] Univers 13:17:00 18:32:00 FLORENCE tang [facility] 2022-05-12 2022-05-13 Emergency Leona Armijo [facility] 1.2.8 40.114 [id number] Univers 13:17:00 18:32:00 Florence Solitario 350.1.13.10 ity [place].2.[place] [phone] [facility] [address] [place] 2022-04-23 2022-04-23 Outpatient R JAYME LEBLANC [facility] 10 [id number] Univers 11:30:00 11:30:00 JAYME LEBLANC i ty of [facility] 2022-04-23 2022-04-23 [facility] 1.2.840.114 [id number] Univers 00:00:00 00:00:00 Jayme MACKAY 350.1.13.10 i [place] [phone] [address] 2022-02-19 2022-02-19 Orders Doctor LIANA 1.2.840.114 [id number] Univers 00:00:00 00:00:00 Only Unassigned, ANTWAN 350.1.13.10 [facility] 4.2.7.2.686 Jonathan as [phone] [facility] [address] [place] 2022-02-11 2022-02-11 Emergency X DIMITRI, [facility] ERT [id number] Univers 02:17:00 06:39:00 LISA tang of [facility] 2022-02-11 2022-02-[address] [facility] 1.2.472.587 [id number] Univers 02:17:00 06:39:00 Lisa MACKAY 350.1.13.10 ity of [place] 4.2.7.2.686 [facility] [phone] [facility] [address] [place] 2022-02-08 2022-02-08 Refill [facility] 1.2.840.114 [id number] Univers 00:00:00 00:00:00 Jayme MACKAY 350.1.13.10 i [place] [id number] [address] 2022-02-03 2022-02-03 Telephone [facility] 1.2.135.023 [id number] Univers 00:00:00 00:00:00 Cornelion ANA PAULATON 350.1.13.10 i ty [place].7.2.[place] [id number] Mi dical NAL [address] [place] [address] 2022-01-21 2022-01-21 Outpatient R JAYME LEBLANC [facility] 10 [id number] Univers 13:30:00 13:47:38 JAYME LEBLANC i ty of [facility] 2022-01-21 2022-01-21 Office [facility] 1.2.840.114 [id number] Univers 13:30:00 13:47:38 Visit Jayme MACKAY 350.1.13.10 i [place].2.[place] [id number] Mi dicne NAL [address] [place] [address] 2022-01-21 2022-01-21 Telephone [facility] 1.2.132.861 [id number] Univers 00:00:00 00:00:00 Shiwan ANA PAULATON 350.1.13.10 i [place].2.[place] [id number] Mi dical NAL [address] [place] [address] 2022-01-19 2022-01-19 Refill [facility] 1.2.840.114 [id number] Univers 00:00:00 00:00:00 Cornelion ANA PAULATON 350.1.13.10 i ty [place] 4[place].2.[place] [id number] Mi dicne NAL [address] [place] [address] 2022-01-05 2022-01-05 Outpatient R SOCORRO COLIN [facility] [id number] Univers 13:30:00 14:09:14 SOCORRO COLIN ity of [facility] 2022-01-05 2022-01-05 Office Augusto [facility] 1.2.840.114 [id number] Univers 13:30:00 14:09:14 [facility] ANA [facility] 350.1.13.10 ity [facility] 4.2.7.2.[place] [id number] Mi dical NAL 044 [facility] 2022-01-01 2022-01-01 Refbrian [facility] [place] 1.2.840.114 [id number] Univers 00:00:00 00:00:00 Fernando MACKAY 350.1.13.10 i ty of [place] [id number] [facility] NAL 085 [facility] 2022-01-01 2022-01-01 Refbrian Sant[facility]LOVEL[facility] [place] 1.2.840.114 [id number] Univers 00:00:00 00:00:00 Chikis MACKAY 350.1.13.10 ity of [place] [id number] [facility] 231 [facility] 2022-01-01 2022-01-01 Refbrian [facility] [place] 1.2.840.114 [id number] Univers 00:00:00 00:00:00 Jayme MACKAY 350.1.13.10 i ty of [place] [id number] [facility] [address] [place] [address] 2021-12-22 2021-12-[address] [facility] [id number] Univers 13:20:00 13:20:00 TENA ity [facility] 2021-12-21 2021-12-21 Ann [facility] 1.2.840.114 [id number] Univers 00:00:00 00:00:00 Jayme MACKAY 350.1.13.10 i ty of [place] [id number] [facility] [address] [place] [address] 2021-12-18 2021-12-18 Outpatient R [address]ME [address] [facility] 10 [id number] Univers 10:30:00 10:30:00 JAYME LEBLANC i ty of [facility] 2021-11-12 2021-11-12 Ann [facility] 1.2.840.114 [id number] Univers 00:00:00 00:00:00 Shiwan [place] 350.1.13.10 i ty of [place]2.[place] [id number] Mi dical NAL 085 [facility] 2021-11-11 2021-11-11 Ann Acuña [facility] 1.2.840.114 [id number] Univers 00:00:00 00:00:00 Tena MACKAY 350.1.13.10 i ty of [place].2.[place] [id number] Mi dical NAL 044 [facility] 2021-11-11 2021-11-11 Ann [facility] [place] 1.2.840.114 [id number] Univers 00:00:00 00:00:00 Shiwan THOM[place] 350.1.13.10 i ty [place] 4[place] [id number] Mi dicne NAL 085 [facility] 2021-11-10 2021-11-10 Orders Doctor LIANA 1.2.840.114 [id number] Univers 00:00:00 00:00:00 Only Unassigned, ANTWAN 350.1.13.10 ity of [place] [facility] 4.2.7.2.686 Jonathan as [phone] [address] 2021-10-30 2021-10-30 Refbrian [facility] [place] 1.2.840.114 [id number] Univers 00:00:00 00:00:00 Jayme MACKAY 350.1.13.10 i ty of [place] 4[place].2.[place] [id number] Mi dicne NAL 085 [facility] 2021-10-29 2021-10-29 Emi [facility] 1.2.581.377 [id number] Univers 00:00:00 00:00:00 Shiwan THOM[place]ON 350.1.13.10 i ty of [place] 4[place]2.[place].2.[place] [id number] Mi dical NAL 059 [facility] 2021-10-28 2021-10-28 Refbrian [facility] [place] 1.2.840.114 [id number] Univers 00:00:00 00:00:00 Shiwan [place] 350.1.13.10 i ty [facility] 4.2.7.2.[place] [id number] Mi dical NAL [address] [place] [address] 2021-10-28 2021-10-28 RefBREANNA Stafford 1.2.840.114 [id number] Univers 00:00:00 00:00:00 Shiwan [place] 350.1.13.10 i ty of [place] 4[place] [id number] Mi dicne NAL [address] [place] [address] 2021-10-26 2021-10-26 Refbrian [facility] 1.2.631.845 [id number] [id number] Univers 00:00:00 00:00:00 [facility] 350.1.13.[address] [facility] 4.2.7.2.[place] [id number] [facility] [address] [place] 2021-10-21 2021-10-21 Orders Doctor LIANA 1.2.840.114 [id number] Univers 00:00:00 00:00:00 Only Unassigned, ANTWAN 350.1.13.10 ity of [place] [facility] 4.2.7.2.686 Jonathan as [phone] [facility] [address] [place] 2021-10-09 2021-10-09 Orders Doctor LIANA 1.2.840.114 [id number] Univers 00:00:00 00:00:00 Only Unassigned, ANTWAN 350.1.13.10 ity of [place] [facility] 4.2.7.2.686 Jonathan as [id number] [facility] [address] [place] 2021-10-08 2021-10-08 Emi Leblanc [facility] 1.2.241.393 [id number] Univers 00:00:00 00:00:00 Shiwan [place] 350.1.13.10 i ty of [place] 4[place] [id number] Mi dic[address] 2021-10-04 2021-10-04 Refbrian Leblanc [facility] 1.2.840.114 [id number] Univers 00:00:00 00:00:00 Shiwan [place] 350.1.13.10 i ty [facility] 4.2.7.2.[place] [id number] [place] [address]75 [facility] 2021-09-30 2021-09-30 Telephone [facility] 1.2.590.093 [id number] Univers 00:00:00 00:00:00 Shiwan [place] 350.1.13.10 i ty of [place] 4[place].2.[place] [phone] [address] 2021-09-29 2021-09-29 RefTriHealth [facility] 1.2.630.111 [id number] 7598 Univers 00:00:00 00:00:00 [facility] 350.1.13.[address] [facility] 4.2.7.2.[place] [id number] [facility] [address] [place] 2021-09-23 2021-09-23 Orders Doctor LIANA 1.2.840.114 [id number] Univers 00:00:00 00:00:00 Only Unassigned, ANTWAN 350.1.13.10 ity of [place] [facility] 4.2.7.2.686 Jonathan as [id number] [facility] [address] [place] 2021-09-21 2021-09-21 Telephone [facility] 1.2.714.553 [id number] 5635 Univers 00:00:00 00:00:00 Ellen MACKAY 350.1.13.10 i ty of [place]2.7.2.[place] [id number] [facility] [address] [place] 2021-09-21 2021-09-21 Telephone [facility] 1.2.335.639 [id number] 5456 Univers 00:00:00 00:00:00 Shiwan [place] 350.1.13.10 i ty of [place] 4[place]2.[place] [id number] [address] 2021-09-21 2021-09-21 Refill Chavo [facility] 1.2.840.114 [id number] Univers 00:00:00 00:00:00 Shiwan [place] 350.1.13.10 i ty [facility] 4.2.7.2.[place] [phone] [facility] 085 [facility] 2021-09-17 2021-09-17 Telephone [facility] 1.2.391.096 [id number] 6631 Univers 00:00:00 00:00:00 Ellen GOSSTON 350.1.13.10 i ty of [facility] 4.2.7.2.[place] [id number] [facility] 296 [facility] 2021-09-14 2021-09-14 [facility] [place] 1.2.840.114 [id number] Univers 00:00:00 00:00:00 Chikis MACKAY 350.1.13.10 ity of [facility] 4.2.7.2.[place] [id number] [facility] 231 [facility] 2021-09-11 2021-09-11 Telephone [facility] 1.2.707.626 [id number] Univers 00:00:00 00:00:00 Ellen MACKAY 350.1.13.10 i ty of [facility] 4.2.7.2.[place] [phone] [address] 2021-09-08 2021-09-08 [facility]pomerene hospital [facility]EL[facility] 1.2.840.114 [id number] Univers 00:00:00 00:00:00 Tena MACKAY 350.1.13.10 i ty of [facility] 4.2.7.2.[place] [id number] [address] 2021-09-03 2021-09-[address] [facility] [id number] Univers 14:30:00 15:34:31 JOSE ity of [facility] 2021-09-03 2021-09-03 Office Sanjana [facility] 1.2.840.114 [id number] Univers 14:30:00 15:34:31 Visit Jose MACKAY 350.1.13.10 i ty of [place] 4[place].2.[place] [id number] Mi dical NAL 044 [facility] 2021-09-03 2021-09-[address] [facility] [id number] Univers 14:30:00 [facility]:34:[facility] 2021-09-03 [facility] [id number] Univers 13:00:00 13:00:[facility] 2021-09-03 2021-09-03 Telephone [facility] 1.2.090.171 [id number] [id number] Univers 00:00:00 00:00:00 Ellen MACKAY 350.1.13.10 i ty of [place] 4[place].2.[place] [id number] Mi dical [facility] 296 [facility] 2021-09-01 2021-09-01 Refbrian [facility] 1.2.038.389 [id number] [id number] Univers 00:00:00 00:00:00 [facility] 350.1.13.[address] [facility] 4.2.7.2.[place] [id number] [facility] [address] [place] 2021-09-01 2021-09-01 Refbrian [facility] 1.2.840.114 [id number] Univers 00:00:00 00:00:00 Tena MACKAY 350.1.13.10 i ty of [place] 4[place].2.[place] [phone] Mi dical [facility] 231 [facility] 2021-08-19 2021-08-[address] [facility] [id number] Univers 11:20:00 11:20:00 TENA tang [facility] 2021-08-19 2021-08-[address] [facility] [id number] Univers 11:20:00 11:20:00 TENA tang [facility] 2021-08-19 2021-08-[address] [facility] [id number] Univers 11:20:00 11:20:00 TENA tang of [facility] 2021-08-14 2021-08-14 Outpatient R [address]ME LE[address] [facility] 10 [id number] Univers 13:30:00 14:32:24 JAYME LEBLANC i ty of [facility] 2021-08-14 2021-08-14 Office Chavo [facility] 1.2.840.114 [id number] Univers 13:30:00 14:32:24 Visit Jayme MACKAY 350.1.13.10 i ty of [place] 4[place] [id number] Mi dicne NAL 085 [facility] 2021-08-11 2021-08-11 Transition BO Richardson 1.2.840.114 [id number] Univers 00:00:00 00:00:00 of Care Jie ZAPATA 350.1.13.10 i ty of [place] 4.2.7.2.[place] [id number] [facility] [address] [place] 2021-08-10 2021-08-10 [facility] 1.2.840.114 [id number] Univers 00:00:00 00:00:00 Chikis MACKAY 350.1.13.10 ity of [place] [id number] [facility] 231 [facility] 2021-08-02 2021-08-09 Inpatient X LAUREN LAPAOLA NASIM [id number] Univers 15:55:00 15:45:00 BENNY ity of [facility] 2021-08-02 2021-08-09 [facility] Fabi Enciso [facility] 1.2.840.1 14 [id number] Univers 15:55:00 15:45:00 Encounter Benny Aguilar 350.1.13.10 [place] of [place].2.[place] [id number] [facility] [address] [place] 2021-07-27 2021-07-27 Refbrian [facility] 1.2.840.114 [id number] Univers 00:00:00 00:00:00 Chikis MACKAY 350.1.13.10 ity of [place].2.[place] [id number] [facility] 231 [facility] 2021-07-27 2021-07-27 Refill BERNADINE Carrillo 1.2.449.395 [id number] Univers 00:00:00 00:00:00 [facility] 350.1.13.10 i ty of [place] 4[place]2.7.2.[place] [id number] [facility] [address] [place] 2021-07-17 2021-07-17 Telephone [facility] 1.2.840.114 [id number] Univers 00:00:00 00:00:00 Tena MACKAY 350.1.13.10 i ty of [place] [id number] [address] 2021-07-13 2021-07-13 Transition BO Richardson 1.2.840.114 [id number] Univers 00:00:00 00:00:00 of Care Jie Kirill [place] 350.1.13.10 i ty [place].2.[place] [id number] [facility] [address] [place] 2021-07-07 2021-07-10 Inpatient X OTIS, ALI [facility] NASIM [id number] Univers 06:13:00 12:45:00 ity of [facility] 2021-07-07 2021-07-10 Hospital Ramya Moore [facility] 1.2.840.1 14 [id number] Univers 06:13:00 12:45:00 Encounter rin, Ali [facility] 350.1.13.10 ity of [place] 4.2.7.2.[place] [phone] [facility] [address] ([facility]) 2021-07-06 2021-07-06 Refill [facility] 1.2.840.114 [id number] Univers 00:00:00 00:00:00 Tena MACKAY 350.1.13.10 i ty [facility] 4.2.7.2.[place] [phone] Me dical NAL [address] [facility] 2021-07-06 2021-07-06 Ann Leblanc [facility] 1.2.840.114 [id number] Univers 00:00:00 00:00:00 Jayme MACKAY 350.1.13.10 i ty of [place].7.2.[place]IM[place] [id number] Mi dical NAL 085 [facility] 2021-06-04 2021-06-04 Transition Celestinostephanie TARAJozef 1.2.840.114 [id number] Univers 00:00:00 00:00:00 of Care Jie DUNNY 350.1.13.10 [place] [id number] [facility] [address] [place] 2021-06-01 2021-06-03 Inpatient X LAUREN [facility] NASIM [id number] Univers 20:34:00 20:15:00 BENNY itaminah [facility] 2021-06-01 2021-06-03 [place] 1.2.840. 114 [id number] Univers 20:34:00 20:15:00 Encounter Benny Aguilar 350.1.13.10 ity of [place] [address] [place] [address] [phone] [place] [address] [place] 2021-05-26 2021-05-26 Emergency X [facility] ERT [id number] Univers 10:24:00 14:09:00 LEONA ity [facility] 2021-05-26 2021-05-26 Emergency [facility] [place] 1.2.840.114 [id number] Univers 10:24:00 14:09:00 Leona MACKAY 350.1.13.10 ity [facility] 4.2.7.2.686 [facility] [phone] [place] [id number] [place] 2021-05-22 2021-05-22 Office [facility] [place] 1.2.840.114 [id number] Univers 13:00:00 13:00:00 Visit Tena MACKAY 350.1.13.10 i [place] [id number] [place] dic[address] 2021-05-22 2021-05-[address] [facility] [id number] Univers 13:00:00 12:28:47 TENA aminah [facility] 2021-05-22 2021-05-[address] [facility] [id number] Univers 13:00:00 12:28:47 TENA [facility] 2021-05-22 2021-05-22 [facility] 1.2.840.114 [id number] Univers 10:40:00 12:26:08 Visit Tena MACKAY 350.1.13.10 i [place] [phone] [address] 2021-05-22 2021-05-22 [id number] Univers 10:40:00 12:26:08 TENA [facility] 2021-05-22 2021-05-[address] [facility] [id number] Univers 10:40:00 10:40:00 [facility] 2021-05-15 2021-05-15 [facility] [id number] Univers 10:40:00 10:40:00 CHIKIS [facility] 2021-05-15 2021-05-15 [facility] [id number] Univers 10:40:00 10:40:00 CHIKIS [facility] 2021-05-14 2021-05-14 Emergency X [facility] [id number] Univers 12:05:00 16:27:00 RICKI [facility] 2021-05-14 2021-05-14 Emergency [facility] [id number] Univers 12:05:00 16:27:00 Ricki MACKAY 350.1.13.10 i [place] [phone] [address] 2021-05-07 2021-05-07 Refill [facility] [place] 1.2.840.114 [id number] Univers 00:00:00 00:00:00 Shiwan [place] 350.1.13.10 i ty [id number] [id number] [address] 2021-04-22 2021-04-22 Oscar LIANA Ron 1.2.840.114 [id number] Univers 00:00:00 00:00:00 Management Shashankmelinda Roy ANTWAN 350.1.13.10 ity of [facility] 4.2.7.2.686 Jonathan as [phone] [address] 2021-04-14 2021-04-14 Telephone [facility] 1.2.878.649 [id number] Univers 00:00:00 00:00:00 Shiwan [place] 350.1.13.10 i ty of [place] [phone] [address] 2021-04-09 2021-04-09 Telephone [facility] 1.2.840.114 [id number] Univers 00:00:00 00:00:00 Chikis MACKAY 350.1.13.10 ity of [place] [phone] [facility] [address] [facility] 2021-04-08 2021-04-08 [facility] 1.2.840.114 [id number] Univers 00:00:00 00:00:00 Shiwan [place] 350.1.13.10 i ty of [place] [id number] [address] 2021-04-02 2021-04-02 Telephone [facility] 1.2.840.114 [id number] Univers 00:00:00 00:00:00 Chikis Hasmukh MACKAY 350.1.13.10 ity [facility] [place] [phone] Mi dical NAL [address] [facility] 2021-04-02 2021-04-02 Orders Doctor LIANA 1.2.840.114 [id number] Univers 00:00:00 00:00:00 Only Unassigned, ANTWAN 350.1.13.10 ity of [place] [facility] 4.2.7.2.686 Jonathan as [phone] [facility] [address] [place] 2021-04-01 2021-04-01 Telephone Esther [facility] 1.2.840.114 [id number] Univers 00:00:00 00:00:00 Chikis MACKAY 350.1.13.10 ity of [place] [phone] Mi dical NAL [address] [facility] 2021-03-26 2021-03-26 Telephone [facility] 1.2.857.528 [id number] [id number] Univers 00:00:00 00:00:00 Jayme MACKAY 350.1.13.10 i ty [facility] [place] [phone] [facility] [address] [facility] 2021-03-10 2021-03-10 Transition TARA RichardsonJozef 1.2.840.114 [id number] Univers 00:00:00 00:00:00 of Care Jie ZAPATA 350.1.13.10 i ty of [place] [id number] [facility] [address] 2021-02-27 2021-03-08 Inpatient X LINDA [facility] NASIM [id number] Univers 23:55:00 15:11:00 AVIVA ity of [facility] 2021-02-27 2021-03-08 [facility] Esperanza Duron [facility] 1.2.840. 114 [id number] Univers 23:55:00 15:11:00 Encounter Florence Solitario 350.1.13.10 ity of [place] Lewis 4.2.7.2.686 [facility] [id number] [facility] [address] [place] 2021-02-27 2021-02-27 Outpatient R JAYME LEBLANC [facility] 10 [id number] Univers 13:30:00 14:57:32 JAYME LEBLANC i ty of [facility] 2021-02-27 2021-02-27 Office Chavo [facility] 1.2.840.114 [id number] Univers 13:23:04 13:53:04 Visit Jayme MACKAY 350.1.13.10 i ty of [place] [phone] Mi dical NAL [address] [facility] 2021-02-27 2021-02-27 Outpatient R JAYME LEBLANC [facility] 10 [id number] Univers 13:30:00 13:30:00 JAYME LEBLANC i ty of [facility] 2021-02-27 2021-02-27 Outpatient R [facility]AYME [facility] 10 [id number] Univers 13:30:00 13:30:00 JAYME LEBLANC i ty of [facility] 2021-02-27 2021-02-27 Outpatient [address]AYME [facility] 10 [id number] Univers 13:30:00 13:30:00 JAYME LEBLANC i ty of [facility] 2021-02-19 2021-02-[address] [facility] [id number] Univers 13:00:00 13:42:07 CHIKISBJORN tang [facility] 2021-02-19 2021-02-19 Outpatient [facility] 1035 [id number] Univers 13:00:00 13:42:07 CHIKIS [facility] 2021-02-19 2021-02-19 Office [facility] [place] 1.2.840.114 [id number] Univers 11:44:19 13:42:07 Visit Chikis MACKAY 350.1.13.10 ity [facility] [place].2.7.2.[place] [phone] Mi dical NAL [address] [facility] 2021-02-18 2021-02-18 Transition BO Dowling 1.2.840.114 [id number] Univers 00:00:00 00:00:00 of Care Gurwinder Noe JODI 350.1.13.10 ity [facility] 4.2.7.2.686 [facility] [phone] [facility] [address] 2021-02-12 2021 Inpatient X LAUREN [facility] NASIM [id number] Univers 14:58:00 15:03:00 ADNAN ity [facility] 2021-02-12 2021 [facility] Kelly Bowman [facility] 1.2.840.11 [id number] Univers 14:58:00 15:03:00 Encounter Dewey Bernardo 350.1.13.10 ity of Benny Aguilar 4.2.7.2.686 [facility] [id number] [facility] [address] 2021-02-12 2021 Inpatient X LAUREN, [facility] NASIM [id number] Univers 14:58:00 15:03:00 ADNAN ity [facility] 2021-02-12 2021 Inpatient X LAUREN [facility] NASIM [id number] Univers 14:58:00 15:03:00 ADNAN ity [facility] 2021-02-12 2021-02-12 Outpatient R JAYME LE[facility]ANC [facility] 10 [id number] Univers 15:00:00 15:00:00 JAYME LEBLANC i ty of [facility] 2021-02-12 2021-02-12 Outpatient [address] [facility] 10 [id number] Univers 15:00:00 15:00:00 JAYME LEBLANC i ty of [facility] 2021-02-12 2021-02-12 Outpatient R [facility]ME [facility] 10 [id number] Univers 15:00:00 15:00:00 JAYME LEBLANC i ty of [facility] 2021-02-12 2021-02-12 Telephone Team, [facility] LIANA 1.2.840.114 [id number] Univers 00:00:00 00:00:00 Health ANTWAN 350.1.13.10 it y of [facility] 4.2.7.2.686 [place] [phone] [facility] [address] 2021-02-10 2021-02-10 Emergency X Fabi ENCISO [facility] ERT [id number] Univers 15:43:00 18:27:00 ity of [facility] 2021-02-10 2021-02-10 Emergency Fabi Enciso [facility] 1.2.840.114 [id number] Univers 15:43:00 18:27:00 Valentina MACKAY 350.1.13.10 i ty [place] [id number] [facility] [address] [place] 2021-02-10 2021-02-10 Refbrian Santana [facility] 1.2.840.114 [id number] Univers 00:00:00 00:00:00 Chikis MACKAY 350.1.13.10 ity of [place] [phone] [facility] [address] [facility] 2021-01-25 2021-01-25 Emergency [facility] [id number] 07:54:00 11:02:00 Department S Patient Visit 2021-01-25 2021-01-25 Emergency MELISSA FLORES [facility] [id number] Worship 03:26:59 03:26:59 Hospit a l ([facility]) 2021-01-20 2021-01-20 Refbrian Carrillo [facility] 1.2.817.785 [id number] Univers 00:00:00 00:00:00 [facility] 350.1.13.[address] [facility] 4.2.7.2.[place] [id number] [facility] [address] [place] 2021-01-14 2021-01-14 Ann Leblanc [facility] 1.2.840.114 [id number] Univers 00:00:00 00:00:00 Jayme Mackay 350.1.13.10 i ty of [place]2.[place] [phone] Mi dical nal 085 [facility] 2021-01-14 2021-01-14 [facility] 1.2.259.104 [id number] [id number] Univers 00:00:00 00:00:00 [facility] 350.1.13.10 i ty of [place] [id number] [address] 2021-01-12 2021-01-12 [facility] 1.2.840.114 [id number] Univers 00:00:00 00:00:00 Chikis Mackay 350.1.13.10 ity of [place]2.[place].2.[place] [facility] [phone] [address] 2020-12-31 2020-12-31 [facility] 1.2.673.930 [id number] Univers 00:00:00 00:00:00 [facility] 350.1.13.10 i ty of [place] [phone] [address] 2020-12-17 2020-12-17 Telephone Tan Soriano 1.2.840.114 [id number] Univers 00:00:00 00:00:00 , Risa Zapata 350.1.13.10 ity of [facility] [place]2.[place].2.[place] [phone] [address] 2020-12-15 2020-12-16 [facility] 1.2.568.622 [id number] [id number] Univers 23:43:00 06:29:00 Esperanza Mackay 350.1.13.10 ity of [place].7.2.[place] [phone] [address] 2020-12-03 2020-12-03 Outpatient R [facility] [id number] Univers 09:45:00 09:58:12 [facility] 2020-12-03 2020-12-[address] [facility] UNIVERSIT 1.2.840.114 [id number] Univers 09:32:36 09:58:12 [facility] 350.1.13.10 ity of [facility].2.[place] [phone] [facility] [address] 2020-12-03 2020-12-03 Office [facility] 1.2.236.965 [id number] Univers 08:28:31 08:58:31 Visit [facility] 350.1.13.10 i ty of [facility] [phone] [facility] [address] [place] 2020-12-03 2020-12-03 Outpatient R [facility] [id number] Univers 08:30:00 08:30:00 [facility] 2020-11-30 2020-11-30 Refbrian [facility] 1.2.840.114 [id number] Univers 00:00:00 00:00:00 Jayme Mackay 350.1.13.10 i ty of [place] 4[place]2.7.2.[place] [facility] [phone] [place] 219695 [facility] 2020-11-26 2020-11-26 Outpatient [facility] [id number] Univers 14:00:00 14:00:00 [facility] 2020-11-26 2020-11-26 Outpatient R [facility] [id number] Univers 14:00:00 14:00:00 [facility] 2020-11-24 2020-11-24 Refill Gerardo [facility] 1.2.291.800 [id number] Univers 00:00:00 00:00:00 [facility] 350.1.13.10 i ty of [place] [id number] [facility] [address] 2020-11-21 2020-11-21 Laboratory Only, Adc Test [facility] 1.2.840. 114 [id number] Univers 15:17:22 15:32:22 Only Federico Mccann 350.1.13.10 ity of [place] 4[place]2.7.2.686 [place] [phone] [facility] [address] 2020-11-212020-11-[address] [facility] [id number] Univers 15:15:00 15:15:00 ity of [facility] 2020-11-14 2020-11-14 Hospital [facility] 1.2.840.114 [id number] Univers 13:00:00 23:59:00 Encounter Corneliojozef Mackay 350.1.13.10 ity of [place] 4[place]2.7.2.[place] [phone] [address] 2020-11-14 2020-11-14 Outpatient R JAYME LEBLANC [facility] 10 [id number] Univers 00:00:00 00:00:00 JAYME LEBLANC i ty of [facility] 2020-11-07 2020-11-07 Office [facility] 1.2.840.114 [id number] Univers 12:48:02 13:32:13 Visit Jayme Mackay 350.1.13.10 i ty of [place] 4[place]2.7.2.[place] [facility] [phone] [address] 2020-11-07 2020-11-07 Outpatient R JAYME LE[facility]ANC [facility] 10 [id number] Univers 13:00:00 13:00:00 JAYME LEBLANC i ty [facility] 2020-11-04 2020-11-04 Outpatient [facility] [id number] Univers 13:30:00 13:30:00 NARAYAN tang [facility] 2020-10-16 2020-10-16 Refill [facility] 1.2.840.114 [id number] Univers 00:00:00 00:00:00 Corneliojozef Mackay 350.1.13.10 i ty of [place] 4[place]2.[place].2.[place] [phone] [address] 2020-10-04 2020-10-08 [facility] Robbie Estes [facility] [id number] 115249 [place] 09:42:00 14:35:00 Encounter Demi Sue Sean L 2020-10-06 2020-10-06 Refbrian Carrillo [facility] 1.2.746.515 [id number] Univers 00:00:00 00:00:00 [facility] 350.1.13.[address] [facility] 4.2.7.2.[place] [id number] [facility] [address] [place] 2020-10-04 2020-10-04 Emergency [facility] [id number] [place] 10:17:17 10:46:38 Health 2020-10-02 2020-10-02 Orders Doctor LIANA 1.2.840.114 [id number] Univers 00:00:00 00:00:00 Only Unassigned, ANTWAN 350.1.13.10 ity of [place] [facility] 4.2.7.2.686 Jonathan as [phone] [facility] [address] [place] 2020-09-25 2020-09-25 Ann [facility] 1.2.840.114 [id number] Univers 00:00:00 00:00:00 Jayme Mackay 350.1.13.10 i ty of [place] 4[place]2.7.2.[place] [phone] [address] 2020-09-18 2020-09-18 Ann Leblanc [facility] 1.2.840.114 [id number] Univers 00:00:00 00:00:00 Jayme Mackay 350.1.13.10 i ty of [place] 4.2.7.2.[place] [phone] [address] 2020-09-17 2020-09-17 Ann Leblanc [facility] 1.2.840.114 [id number] Univers 00:00:00 00:00:00 Shiwan [place] 350.1.13.10 i ty of [place] 4.2.7.2.[place] [id number] [address] 2020-09-11 2020-09-11 Outpatient R JAYME LE[address]ANC [facility] 10 [id number] Univers 14:30:00 14:30:00 JAYME LEBLANC i ty of [facility] 2020-09-01 2020-09-01 Ann Carrillo [facility] 1.2.572.203 [id number] Univers 00:00:00 00:00:00 [facility] 350.1.13.10 i ty of [place] [id number] [facility] [address] [place] 2020-08-27 2020-08-27 Emergency [facility] 1.2.939.406 [id number] 9577 Univers 17:07:00 19:36:00 Ricki Mackay 350.1.13.10 i ty of [place] 4.2.7.2.686 [place] [phone] [place] 241804 [place] 2020-08-27 2020-08-27 Emergency X SINGER [facility] ERT [id number] Univers 17:07:00 19:36:00 RICKI tang [facility] 2020-08-08 2020-08-08 Outpatient [facility] [id number] Univers 16:20:00 16:20:00 CHIKIS tang [facility] 2020-08-08 2020-08-08 Telemedici [facility] 1.2.840.114 [id number] Univers 07:49:50 08:09:50 ne Visit Chikis Mackay 350.1.13.10 ity of [place]2.[place] [phone] Mi dic[address] 2020-08-08 2020-08-08 Orders Doctor LIANA 1.2.840.114 [id number] Univers 00:00:00 00:00:00 Only Unassigned, ANTWAN 350.1.13.10 ity of [place] [facility] 4.2.7.2.686 Jonathan as [phone] [facility] [address] 2020-08-04 2020-08-04 On license of [facility] 1.2.508.565 [id number] Univers 00:00:00 00:00:00 [facility] 350.1.13.10 i ty of [place] [phone] [place] 241809 [place] 2020-08-02 2020-08-02 Emergency [facility] 1.2.840.114 [id number] Univers 12:12:00 13:55:00 Leona Mackay 350.1.13.10 ity of [place] 4.2.7.2.686 [facility] [id number] [address] 2020-08-01 2020-08-01 Emergency [facility] 1.2.359.153 [id number] 1746 Univers 00:17:00 06:08:00 Ricki Mackay 350.1.13.10 i ty of [place] 4.2.7.2.686 [facility] [phone] [address] 2020-07-31 2020-07-31 Orders Doctor LIANA 1.2.840.114 [id number] Univers 00:00:00 00:00:00 Only Unassigned, ANTWAN 350.1.13.10 ity of [place] [facility] 4.2.7.2.686 Jonathan as [phone] [address] 2020-07-23 2020-07-23 Telephone [facility] 1.2.840.114 [id number] Univers 00:00:00 00:00:00 Chikis Mackay 350.1.13.10 ity of [place] 4.2.7.2.[address] [facility] [phone] [address] 2020-07-22 2020-07-22 Outpatient GUU_SHENG_Y [facility] 113 802-202 [place] 03:33:00 03:33:00 AW [address] da [facility] Outre h Program 2020-07-10 2020-07-10 Orders Doctor LIANA 1.2.840.114 [id number] Univers 00:00:00 00:00:00 Only Unassigned, ANTWAN 350.1.13.10 ity of [place] [facility] 4.2.7.2.686 Jonathan as [phone] [address] 2020-07-08 2020-07-[address] [facility] UNIVERS 1.2.840.114 [id number] Univers 16:06:35 16:21:35 Visit [place], [facility] 350.1.13.10 ity of [place]2.[place]2.[place] [id number] [facility] [address] 2020-07-08 2020-07-08 Office [facility] 1.2.997.961 [id number] Univers 13:56:54 15:54:18 Visit [facility] 350.1.13.10 i ty of [place].2.[place] [id number] [place] 241809 [place] 2020-07-08 2020-07-08 Outpatient R [facility] [id number] Univers 13:00:00 13:00:00 [facility] [facility] of [facility] 2020-07-08 2020-07-08 Telephone [facility] 1.2.770.494 [id number] 7575 Univers 00:00:00 00:00:00 [facility] [place] 350.1.13.10 i ty of [place] [id number] Mi colinal [facility]5 [facility] 2020-06-30 2020-06-30 Refill [facility] 1.2.387.039 [id number] Univers 00:00:00 00:00:00 [facility] 350.1.13.10 i ty of [place]2.[place].2.[place] [id number] [place] 241809 [place] 2020-06-26 2020-06-26 Outpatient R JAYME LEBLANC [facility] 10 [id number] Univers 15:00:00 15:00:00 JAYME LEBLANC i ty of [facility] 2020-06-18 2020-06-18 Outpatient GUU_SHENG_Y [facility] 113 802-202 [place] 04:29:00 04:29:00 AW 50997 da [facility]re[facility] 2020-06-12 2020-06-12 Office [facility] 1.2.840.114 [id number] Univers 14:12:41 14:54:39 Visit [facility] 350.1.13.10 i ty of [place] 4.2.[place].2.[place] [phone] Mi dical nal 085 [facility] 2020-06-12 2020-06-12 Outpatient R JAYME LEBLANC [facility] 10 [id number] Univers 14:20:00 14:20:00 JAYME LEBLANC i ty [facility] 2020-06-12 2020-06-12 Orders Doctor LIANA 1.2.840.114 [id number] Univers 00:00:00 00:00:00 Only Unassigned, ANTWAN 350.1.13.[address] [facility] 4.2.7.2.686 Jonathan as [id number] [address] 2020-06-10 2020-06-10 Refill [facility] 1.2.840.114 [id number] Univers 00:00:00 00:00:00 Whitley Mackay 350.1.13.10 ity of [place] [phone] [facility] 231 [facility] 2020-05-13 2020-05-[address] [facility] 1030 [id number] Univers 08:20:00 08:20:00 TENA tang [facility] 2020-05-13 2020-05-13 [facility] 1.2.840.114 [id number] 07:51:06 08:11:06 ne Visit Tena Mackay 350.1.13.10 [place] 4.2.7.2.686 Professio [id number] [address] 2020-05-13 2020-05-13 Telemedici [facility] 1.2.840.114 [id number] Univers 07:51:06 08:11:06 ne Visit Tena Mackay 350.1.13.10 ity of [place] 4[place].2.[place] [phone] [facility] 044 [facility] 2020-05-12 2020-05-12 Telephone [facility] 1.2.332.116 [id number] 00:00:00 00:00:00 Jayme Mackay 350.1.13.10 [place] 4.2.7.2.686 Professio [phone] [facility] [address] [place] [address] 2020-05-12 2020-05-12 Telephone Esther [facility] 1.2.840.114 [id number] Univers 00:00:00 00:00:00 Chikis Mackay 350.1.13.10 ity of [place].2.[place] [phone] [facility] 044 [facility] 2020-05-12 2020-05-12 Telephone [facility] 1.2.361.258 1116 4751 Univers 00:00:00 00:00:00 Jayme Mackay 350.1.13.10 i ty of [place].2.[place] [phone] [facility] 085 [facility] 2020-04-18 2020-04-18 Outpatient R JAYME LEBLANC [facility] 10 [id number] Univers 13:20:00 13:20:00 JAYME LEBLANC i ty of [facility] 2020-03-31 2020-03-31 Refill [facility] 1.2.840.114 [id number] Univers 00:00:00 00:00:00 Chikis Mackay 350.1.13.10 ity of [place].2.[place] [phone] [facility] 231 [facility] 2020-03-27 2020-03-27 Orders Doctor GAINES 1.2.840.114 [id number] Univers 00:00:00 00:00:00 Only Unassigned, ANTWAN 350.1.13.10 ity of [place] [facility] 4.2.7.2.686 Jonathan as [phone] [address] 2020-02-28 2020-02-28 Orders Doctor GAINES 1.2.840.114 [id number] Univers 00:00:00 00:00:00 Only Unassigned, ANTWAN 350.1.13.10 ity of [place] [facility] 4.2.7.2.686 Jonathan as [phone] [address] 2020-02-26 2020-02-26 Telephone [facility] 1.2.566.594 [id number] 4675 Univers 00:00:00 00:00:00 Jayme Mackay 350.1.13.10 i ty of [place].2.[place] [phone] Mi dical nal 085 [facility] 2020-02-25 2020-02-25 Outpatient [facility] [id number] Univers 14:00:00 14:00:00 YOAN ity [facility] 2020-02-12 2020-02-12 Telephone [facility] 1.2.368.653 [id number] Univers 00:00:00 00:00:00 Jayme Mackay 350.1.13.10 i ty of [place].2.[place] [phone] [facility] nal 085 [facility] 2020-02-07 2020-02-[address] [facility] [id number] Univers 10:00:00 10:00:00 ity of [facility] 2020-02-05 2020-02-05 Iron Caster Abimbola, [facility] 1.2.8 40.114 [id number] Univers 13:59:55 14:14:55 Visit Chikis Santana 350.1. 13.10 ity [facility] 4.2.7.2.[place] [phone] [facility] 353 [facility] 2020-02-05 2020-02-05 Outpatient [facility] [id number] Univers 14:00:00 14:00:00 CHIKIS itaminah [facility] 2020-02-05 2020-02-05 Orders Doctor GAINES 1.2.840.114 [id number] Univers 00:00:00 00:00:00 Only Unassigned, ANTWAN 350.1.13.10 ity of [place] [facility] 4.2.7.2.686 Jonathan as [phone] [address] 2020-02-04 2020-02-[address] [facility] [id number] Univers 14:00:00 14:00:00 ity [facility] 2020-01-15 2020-01-15 On license of [facility] [id number] Univers 00:00:00 00:00:00 [facility] 350.1.13.[address] [facility] 4[place]7.2.[place] [phone] [facility] [address] [place] 2020-01-11 2020-01-11 [facility] 1.2.840.114 [id number] Univers 13:15:06 14:04:24 Visit Jayme Mackay 350.1.13.10 i ty of [place]7.2.[place] [phone] Mi dical nal [address] [facility] 2020-01-11 2020-01-11 Outpatient R JAYME LEBLANC [facility] 10 [id number] Univers 13:00:00 13:00:00 JAYME LEBLANC i ty of [facility] 2020-01-11 2020-01-11 Orders Doctor GAINES 1.2.840.114 [id number] Univers 00:00:00 00:00:00 Only Unassigned, ANTWAN 350.1.13.10 [facility] 4.2.7.2.686 Jonathan as [phone] [facility] [address] [place] 2020-01-11 2020-01-11 Telephone [facility] 1.2.840.114 [id number] Univers 00:00:00 00:00:00 Chikis Mackay 350.1.13.10 ity [place] [phone] [facility] [address] [facility] 2020-01-10 2020-01-[address] [facility] [id number] Univers 14:20:00 14:20:00 TENA ity of [facility] 2020-01-08 2020-01-08 Office [facility] 1.2.840.114 [id number] Univers 14:30:15 15:44:23 Visit Chikis Mackay 350.1.13.10 it[place] [phone] Mi dical [facility] [address] [facility] 2020-01-08 2020-01-[address] [facility] [id number] Univers 14:20:00 14:20:00 CHIKIS tang [facility] 2020-01-07 2020-01-07 [facility]phone [facility] 1.2.840.114 [id number] Univers 00:00:00 00:00:00 Chikis Mackay 350.1.13.10 ity [place]2.[place] [phone] Mi dical nal [address] [facility] 2019-12-31 2019-12-31 Transition Bo Richardson 1.2.840.114 [id number] Univers 00:00:00 00:00:00 of Care Jie Zapata 350.1.13.10 i ty of [facility] [place]7.2[place] [phone] [facility] [address] 2019-12-26 2019-12-28 Emergency Alexis Garcia [place] [facility] .2.840.1 14 [id number] Univers 07:48:00 11:00:00 Dewey Bernardo 350.1.13.10 [place] [phone] [facility] 080 [place] 2019-12-25 2019-12-25 [facility] [place] 1.2.840.114 [id number] Univers 00:00:00 00:00:00 Chikis Mackay 350.1.13.10 [place] [phone] [facility] 044 [facility] 2019-12-13 2019-12-13 Emergency E FADOWOLE, MHBL MHBL 7501 MHBL 17:14:00 23:11:00 DANIEL 2019-11-02 2019-11-[address] [facility] [id number] Univers 15:00:00 15:00:00 NARAYAN tang [facility] 2019-10-08 2019-10-[address] [facility] [id number] Univers 09:00:00 09:00:00 CHIKIS ity of [facility] 2019-09-19 2019-09-19 Transition Bo Tom 1.2.840.114 [id number] Univers 00:00:00 00:00:00 of Care Susanna Zapata 350.1.13.10 [phone] [address] 2019-09-15 2019-09-17 Hospital Ramya Moore [facility] 1.2.840.1 14 [id number] Univers 09:17:36 16:30:00 Encounter Kaleb Hernandez 350.1.13.10 [place] [phone] [address] 2019-09-14 2019-09-15 Emergency Oliverio [facility] 1.2.437.498 [id number] Univers 23:10:21 02:25:00 Esperanza Mackay 350.1.13.10 [place] [phone] [address] 2019-09-14 2019-09-14 Emergency Fabi Enciso [facility] 1.2.840.114 [id number] Univers 17:55:05 21:50:00 Valentina Mackay 350.1.13.10 i ty [place] [phone] [address] 2019-09-14 2019-09-14 Emergency X Fabi ENCISO [facility] ERT [id number] Univers 17:55:05 21:50:00 ity of [facility] 2019-09-14 2019-09-14 Gay Chavo [facility] 1.2.039.643 [id number] Univers 00:00:00 00:00:00 Jayme Mackay 350.1.13.10 i [place] [phone] Mi dical [facility]5 [facility] 2019-09-05 2019-09-05 Emergency Oscar [facility] 1.2.032.978 [id number] Univers 15:49:59 17:55:00 Ramya Mackay 350.1.13.10 i ty [place] [phone] [facility] [address] [place] 2019-09-05 2019-09-05 Emergency X OSCAR [facility] ERT [id number] Univers 15:49:59 17:55:00 RAMYA ity of [facility] 2019-09-05 2019-09-05 Refill Esther [facility] 1.2.840.114 [id number] Univers 00:00:00 00:00:00 Chikis Mackay 350.1.13.10 [place] [phone] [facility] 231 [facility] 2019-09-05 2019-09-05 Orders Doctor GAINES 1.2.840.114 [id number] Univers 00:00:00 00:00:00 Only Unassigned, ANTWAN 350.1.13.10 [facility] 4.2.7.2.686 Jonathan as [phone] [facility] 00[address] [place] 2019-09-02 2019-09-02 Refbrian Leblanc [facility] 1.2.840.114 [id number] Univers 00:00:00 00:00:00 Jayme Mackay 350.1.13.10 i [place] [phone] Mi dical nal 085 [facility] 2019-08-14 2019-08-14 Nurse Christina GAINES 1.2.840.114 [id number] Univers 00:00:00 00:00:00 Triage rs, ANTWAN 350.1.13.10 it y of [facility] 4.2.7.2.686 [place] [phone] [facility] [address] [place] 2019-08-14 2019-08-14 Telephone Esther [facility] 1.2.840.114 [id number] Univers 00:00:00 00:00:00 Chikis Mackay 350.1.13.10 [place] [phone] Mi dical nal 044 [facility] 2019-08-10 2019-08-10 Orders Doctor LIANA 1.2.840.114 [id number] Univers 00:00:00 00:00:00 Only Unassigned, ANTWAN 350.1.13.10 ity of [place] [facility] 4.2.7.2.686 Jonathan as [phone] [facility] 00[address] [place] 2019-08-09 2019-08-09 Outpatient R JAYME [facility]BLANC [facility] 10 [id number] Univers 10:40:00 10:40:00 JAYME LEBLANC i ty [facility] 2019-08-09 2019-08-09 Telemedici [facility] [place] 1.2.840.114 [id number] Univers 08:18:48 08:33:48 ne Visit Jayme Mackay 350.1.13.10 [place] [phone] [facility] 085 [facility] 2019-08-08 2019-08-08 Emergency E LAURITA GEORGE MHBL MHBL 7500 MHBL 07:01:00 10:09:00 2019-08-03 2019-08-03 Outpatient R [facility] [id number] Univers 13:30:00 13:30:00 NARAYAN tang [facility] 2019-08-03 2019-08-03 [facility] 1.2.840.114 7 [id number] Univers 07:49:32 08:19:32 ne Visit [facility] 350.1.13.[address] [facility] 4.2.7.2.[place] [phone] [facility] [address]89 [place] 2019-07-06 2019-07-06 [facility] [place] 1.2.840.114 [id number] Univers 00:00:00 00:00:00 Chikis Mackay 350.1.13.10 [place] [phone] [facility] 231 [facility] 2019-07-05 2019-07-05 Telemedici Santana, [facility] 1.2.840.114 [id number] Univers 08:52:25 16:44:04 ne Visit Chikis Mackay 350.1.13.10 [place] [phone] [address] 2019-07-05 2019-07-[address] [facility] [id number] Univers 15:00:00 15:00:00 CHIKIS ity of [facility] 2019-07-02 2019-07-02 [facility]phone [facility] [place] 1.2.840.114 [id number] Univers 00:00:00 00:00:00 Chikis Mackay 350.1.13.10 [place] [phone] [address] 2019-06-30 2019-06-30 [facility] [place] 1.2.840.114 [id number] Univers 00:00:00 00:00:00 Chikis Mackay 350.1.13.10 [place] [phone] [address] 2019-06-30 2019-06-30 Refill Ivan Ken [facility] 1.2.840.114 [id number] Univers 00:00:00 00:00:00 Robert Mackay 350.1.13.10 i ty [place] [phone] [address] 2019-06-25 2019-06-25 Transition Bo Beckett 1.2.840.114 [id number] Univers 00:00:00 00:00:00 of Care Aleksandra Zapata 350.1.13.10 it y of [facility] [place] [phone] [address] 2019-06-22 2019-06-23 Outpatient X LAUREN [facility] MPU [id number] Univers 05:32:52 13:00:00 ADNAN ity of [facility] 2019-06-22 2019-06-23 Emergency Ramya Moore [facility] 1.2.840. 114 [id number] Univers 05:32:52 13:00:00 Benny Aguilar 350.1.13.10 ity of [place] 4.2.7.2.686 [facility] [phone] [place] [address] [place] 2019-06-05 2019-06-05 [facility] [id number] Univers 14:30:00 14:30:00 NARAYAN ity [facility] 2019-05-28 2019-05-28 Emergency X [facility] ERT [id number] Univers 20:59:47 23:32:00 MDMARBELLA ity [facility] 2019-05-28 2019-05-28 Emergency X [facility] ERT [id number] Univers 20:59:47 23:32:00 [facility] 2019-05-28 2019-05-28 Emergency [facility] 1.2.359.077 [id number] Univers 20:59:47 23:32:00 Esperanza Mackay 350.1.13.10 ity of [place] 4.2.7.2.[address] [place] [address] [phone] [place] 241804 [place] 2018-12-19 2018-12-19 Transition Bo Richardson 1.2.840.114 [id number] Univers 00:00:00 00:00:00 of Monalisa Zapata 350.1.13.10 i ty of [place] 4.2.7.2.686 [facility] [phone] [facility] [address] [place] 2018-12-14 2018-12-18 [facility] Ramya Moore [facility] 1.2.840.1 14 [id number] Univers 07:42:44 12:48:00 Encounter Kaleb Hernandez 350.1.13.10 ity of [place] 4.2.7.[address] [place] [address] [phone] [place] 241801 [place] 2018-12-12 2018-12-12 Emergency [facility] 1.2.299.947 [id number] Univers 16:25:55 22:19:00 Yaya Mackay 350.1.13.10 i ty of [place] 4.2.7.2.686 [facility] [phone] [place] 241804 [place] 2018-12-12 2018-12-12 Emergency X SUSANNA [facility] ERT [id number] 21 16:25:55 22:19:00 YAYA tang of [facility] 2018-08-06 2018-08-05 Inpatient E BL MED 7502 [facility] 20:41:00 13:41:00 Results Test Description Test Time Test Comments Results Result Comments Source PROCALCITONIN 2022-05-13 17:43:52 Test Item Value Reference Range Interpretation Comme nts Procalcitonin (test code = 0.02 ng/mL <=0.07 7548449511) MARIELA (test code = MARIELA) INTERPRETATION OF PROCALCITONIN RESULTS IN ADULTS >= 18 YEARS OF AGE Initiation and discontinuation of antibiotics on patients with suspected or confirmed Lower Respiratory Tract Infection in Adults >= 18 years of age. + + +----- + -+|Procalcitonin |Interpretation ?|Antibiotic ? ? |Considerations ? |ng/mL ? | ?|recommendation | ? + + +----- + -+| <0.1 ? | Bacterial ? ? ?| Strongly ? ? ?| ? | ?| infection very | discouraged ? | Overruling: ? | ?| unlikely ? ? ? | ? | ? Clinically unstable ? ? ? + + +----- + ? High risk for adverse ? ? | <0.25 ?| Bacterial ? ? ?| Discouraged ? | ? outcome ? | ?| infection ? ? ?| ? | ? SEE IMPORTANT NOTE ?| ?| unlikely ? ? ? | ? | ? + + +----- + -+| >=0.25 ? ? ? | Bacterial ? ? ?| Encouraged ? ?| ? | ?| infection ? ? ?| ? | ? | ?| likely ? | ? | Consider treatment failure ?+ + +---- + if levels does not decrease | >0.5 ? | Bacterial ? ? ?| Strongly ? ? ?| appropriately ? | ?| infection very | encouraged ? ?| ? | ?| likely ? | ? | ? + + +----- + -+ Discontinuation of antibiotics in high-acuity patients with suspected or confirmed sepsis in Adults >= 18 years of age. + + +----- + -+|Procalcitonin |Interpretation ?|Antibiotic ? ? |Considerations ? |ng/mL ? | ?|recommendation | ? + + +----- + -+| <0.25 ?| Bacterial ? ? ?| Strongly ? ? ?| ? | ?| infection very | discouraged ? | Overruling: ? | ?| unlikely ? ? ? | ? | ? Clinically unstable ? ? ? + + +----- + ? High risk for adverse ? ? | <0.5 or drop | Bacterial ? ? ?| Discouraged ? | ? outcome ? | >80% from ? ?| infection ? ? ?| ? | ? SEE IMPORTANT NOTE ?| highest PCT ?| unlikely ? ? ? | ? | ? | level ?| ?| ? | ? + + +----- + -+| >=0.5 ?| Bacterial ? ? ?| Encouraged ? ?| ? | ?| infection ? ? ?| ? | ? | ?| likely ? | ? | Consider treatment failure ?+ + +---- + if levels does not decrease | >1.0 ? | Bacterial ? ? ?| Strongly ? ? ?| appropriately ? | ?| infection very | encouraged ? ?| ? | ?| likely ? | ? | ? + + +----- + -+ Percentage of drop of Procalcitonin calculation for Discontinuation of antibiotics in high-acuity patients with suspected or confirmed sepsis in Adults >= 18 years of age. ? Procalcitonin highest{}-Procalcitonin current{}Delta Procalcitonin = x100% ? Procalcitonin current {} IMPORTANT NOTE: Procalcitonin may be elevated without bacterial infection by physiologic stress related to trauma, berry, chronic dialysis, metastatic cancer, surgery in the past seven days, malaria, some fungal infections, and some forms of vasculitis. The interpretation algorithm may not apply to patients with immunosuppression (equivalent of >10 mg of prednisone daily), HIV with CD4 cell count < 350 cells/mm3, active malignancy on systemic chemotherapy, solid organ transplant or hematopoietic stem cell transplantation, or hospital acquired pneumonia. Additionally, some clinical trials of procalcitonin have excluded patients with shock requiring vasopressor use, acute respiratory failure requiring mechanical ventilation, or those with known lung abscess/empyema. For further information please refer to:[email or web address] Lab Interpretation (test code = Normal 65487-8) [facility] (NA, K, CL, CO2, GLUCOSE, BUN, CREATININE, CA)2022-05-13 11:34:13 Test Item Value Reference Range Interpretation Comments NA (test code = 142 mmol/L 135-145 2758831428) K (test code = 3.7 mmol/L 3.5-5.0 2893811931) CL (test code = 104 mmol/L 98-108 8746936646) CO2 TOTAL (test code = 36 mmol/L 23-31 H 9446486664) AGAP (test code = 2 2-16 2444601922) BUN (test code = 12 mg/dL 7-23 6723499482) GLUCOSE (test code = 167 mg/dL 70-110 H 2522365471) CREATININE (test code = 0.68 mg/dL 0.50-1.04 0397024769) CALCIUM (test code = 9.1 mg/dL 8.6-10.6 0904271701) eGFR (test code = 89.2 mL/min/1.73m2 3008971990) MARIELA (test code = MARIELA) Association of Glomerular Filtration Rate (GFR) and Staging of Kidney Disease* + --+ --+ ------+| GFR (mL/min/1.73 m2) ?| With Kidney Damage ?| ?Without Kidney Damage+ --------+ --------+ +| ?>90 ?| ?Stage one ?| ? Normal ?+ ---+ ---+ -------+| ?60-89 ?| ?Stage two ?| ? Decreased GFR ? + --+ --+ ------+| ?30-59 ?| ?Stage three ?| ? Stage three ? + --+ --+ ------+| ?15-29 ?| ?Stage four ? | ? Stage four ?+ ---+ ---+ -------+| ?<15 (or dialysis) ? ?| ?Stage five ? | ? Stage five ?+ ---+ ---+ -------+ *Each stage assumes the associated GFR level has been in effect for at least three months. ?Stages 1 to 5, with or without kidney disease, indicate chronic kidney disease. Notes: Determination of stages one and two (with eGFR >59mL/min/1.73 m2) requires estimation of kidney damage for at least three months as defined by structural or functional abnormalities of the kidney, manifested by either:Pathological abnormalities or Markers of kidney damage (including abnormalities in the composition of the blood or urine or abnormalities in imaging tests). Lab Interpretation Abnormal (test code = 95767-4) [facility] [id number] 11:34:13 Test Item Value Reference Range Interpretation Comments MAGNESIUM (test code = 8202713582) 2.3 mg/dL 1.7-2.4 Lab Interpretation (test code = Normal 58357-0) [facility] with [id number] 10:05:47 Test Item Value Reference Range Interpretation Comments WBC (test code = 5.96 See_Comment [Automated 0075-2) message] The sy stem which generated this result transmitted reference range : 4.30 - 11.10 10*3/?L. The reference range was not used to interpret this result as normal/abnormal . RBC (test code = 3.87 See_Comment L [Automated 789-8) message] The sy stem which generated this result transmitted reference range : 3.93 - 5.25 10*6/?L. The reference range was not used to interpret this result as normal/abnormal . HGB (test code = 9.5 g/dL 11.6-15.0 L 718-7) HCT (test code = 29.9 % 35.7-45.2 L 4544-3) MCV (test code = 77.3 fL 80.6-95.5 L 787-2) MCH (test code = 24.5 pg 25.9-32.8 L 785-6) MCHC (test code = 31.8 g/dL 31.6-35.1 786-4) RDW-SD (test code = 42.5 fL 39.0-49.9 76196-9) RDW-CV (test code = 15.2 % 12.0-15.5 788-0) PLT (test code = 224 See_Comment [Automated 777-3) message] The sy stem which generated this result transmitted reference range : 166 - 358 10*3/ ?L. The reference r estefany was not used to interpret this result as normal/abnormal . MPV (test code = 10.8 fL 9.5-12.9 71781-5) NRBC/100 WBC (test 0.0 See_Comment [Automat ed code = 7947190590) message] The system which generated this result transmitted reference range : 0.0 - 10.0 /100 WBCs. The refer ence range was not u sed to interpret th is result as normal/abnormal . NRBC x10^3 (test code See_Comment [Auto mated = 0712468882) message] The s ystem which generated this result transmitted reference range : 10*3/?L. The reference range was not used to interpret this result as normal/abnormal . GRAN MAT (NEUT) % 83.9 % (test code = 770-8) IMM GRAN % (test code 0.30 % = 8081488947) LYMPH % (test code = 8.6 % 736-9) MONO % (test code = 7.2 % 5905-5) EOS % (test code = 0.0 % 713-8) BASO % (test code = 0.0 % 706-2) GRAN MAT x10^3(ANC) 5.00 10*3/uL 1.88-7.09 (test code = 8832257147) IMM GRAN x10^3 (test 0.00-0.06 code = 1426095390) LYMPH x10^3 (test code 0.51 10*3/uL 1.32-3.29 L = 731-0) MONO x10^3 (test code 0.43 10*3/uL 0.33-0.92 = 742-7) EOS x10^3 (test code = 0.03-0.39 L 711-2) BASO x10^3 (test code 0.01-0.07 = 704-7) Lab Interpretation Abnormal (test code = 49926-8) [facility]. METABOLIC PANEL (19622)2022-05-12 20:36:20 Test Item Value Reference Range Interpretation Comments NA (test code = 138 mmol/L 135-145 7390704536) K (test code = 3.8 mmol/L 3.5-5.0 7924358878) CL (test code = 100 mmol/L 98-108 2226378353) CO2 TOTAL (test code = 34 mmol/L 23-31 H 2991859653) AGAP (test code = 4 2-16 5352932312) BUN (test code = 8 mg/dL 7-23 6783145506) GLUCOSE (test code = 139 mg/dL 70-110 H 5373318276) CREATININE (test code = 0.45 mg/dL 0.50-1.04 L 9250971127) TOTAL BILI (test code = 0.8 mg/dL 0.1-1.1 4999755661) CALCIUM (test code = 9.0 mg/dL 8.6-10.6 0336133516) T PROTEIN (test code = 6.5 g/dL 6.3-8.2 8981122476) ALBUMIN (test code = 3.8 g/dL 3.5-5.0 8569368734) ALK PHOS (test code = 87 U/L 34-122 7472887103) ALTv (test code = 18 U/L 5-35 1742-6) AST(SGOT) (test code = 32 U/L 13-40 7110047418) eGFR (test code = 143.6 mL/min/1.73m2 4861063545) MARIELA (test code = MARIELA) Association of Glomerular Filtration Rate (GFR) and Staging of Kidney Disease* + --+ --+ ------+| GFR (mL/min/1.73 m2) ?| With Kidney Damage ?| ?Without Kidney Damage+ --------+ --------+ +| ?>90 ?| ?Stage one ?| ? Normal ?+ ---+ ---+ -------+| ?60-89 ?| ?Stage two ?| ? Decreased GFR ? + --+ --+ ------+| ?30-59 ?| ?Stage three ?| ? Stage three ? + --+ --+ ------+| ?15-29 ?| ?Stage four ? | ? Stage four ?+ ---+ ---+ -------+| ?<15 (or dialysis) ? ?| ?Stage five ? | ? Stage five ?+ ---+ ---+ -------+ *Each stage assumes the associated GFR level has been in effect for at least three months. ?Stages 1 to 5, with or without kidney disease, indicate chronic kidney disease. Notes: Determination of stages one and two (with eGFR >59mL/min/1.73 m2) requires estimation of kidney damage for at least three months as defined by structural or functional abnormalities of the kidney, manifested by either:Pathological abnormalities or Markers of kidney damage (including abnormalities in the composition of the blood or urine or abnormalities in imaging tests). Lab Interpretation Abnormal (test code = 15933-8) [facility] WITH [id number] 19:51:53 Test Item Value Reference Range Interpretation Comments WBC (test code = 6.14 See_Comment [Automated 9111-2) message] The sy stem which generated this result transmitted reference range : 4.30 - 11.10 10*3/?L. The reference range was not used to interpret this result as normal/abnormal . RBC (test code = 4.32 See_Comment [Automated 955-7) message] The sy stem which generated this result transmitted reference range : 3.93 - 5.25 10*6/?L. The reference range was not used to interpret this result as normal/abnormal . HGB (test code = 10.7 g/dL 11.6-15.0 L 718-7) HCT (test code = 34.0 % 35.7-45.2 L 4544-3) MCV (test code = 78.7 fL 80.6-95.5 L 787-2) MCH (test code = 24.8 pg 25.9-32.8 L 785-6) MCHC (test code = 31.5 g/dL 31.6-35.1 L 786-4) RDW-SD (test code = 43.4 fL 39.0-49.9 37006-4) RDW-CV (test code = 15.1 % 12.0-15.5 788-0) PLT (test code = 262 See_Comment [Automated 777-3) message] The sy stem which generated this result transmitted reference range : 166 - 358 10*3/ ?L. The reference r estefany was not used to interpret this result as normal/abnormal . MPV (test code = 10.6 fL 9.5-12.9 16494-4) NRBC/100 WBC (test 0.0 See_Comment [Automat ed code = 5230518183) message] The system which generated this result transmitted reference range : 0.0 - 10.0 /100 WBCs. The refer ence range was not u sed to interpret th is result as normal/abnormal . NRBC x10^3 (test code See_Comment [Auto mated = 7883104031) message] The s ystem which generated this result transmitted reference range : 10*3/?L. The reference range was not used to interpret this result as normal/abnormal . GRAN MAT (NEUT) % 53.1 % (test code = 770-8) IMM GRAN % (test code 0.20 % = 7947485436) LYMPH % (test code = 29.3 % 736-9) MONO % (test code = 11.2 % 5905-5) EOS % (test code = 5.7 % 713-8) BASO % (test code = 0.5 % 706-2) GRAN MAT x10^3(ANC) 3.26 10*3/uL 1.88-7.09 (test code = 5647824719) IMM GRAN x10^3 (test 0.00-0.06 code = 9349620183) LYMPH x10^3 (test code 1.80 10*3/uL 1.32-3.29 = 731-0) MONO x10^3 (test code 0.69 10*3/uL 0.33-0.92 = 742-7) EOS x10^3 (test code = 0.35 10*3/uL 0.03-0.39 711-2) BASO x10^3 (test code 0.03 10*3/uL 0.01-0.07 = 704-7) Lab Interpretation Abnormal (test code = 59136-3) [facility] [id number] 08:44:06 Test Item Value Reference Interpretation Comments Range TROPONIN I (test 0.002 ng/mL See_Comment [Automated code = 7281817565) message] The system which generated this result transmitted reference range : <=0.034. The reference range was not used to interpret this result as normal/abnormal . MARIELA (test code = Reference (Normal) MARIELA) Range (defined by the 99th percentile reference limit): <= 0.034 ng/mL Note: Cardiac troponin begins to rise 3-4 hours after the onset of ischemia. Repeat in 4-6 hours if the sample was drawn within 3-4 hours of the onset of the symptom and found normal. Diagnosis of myocardial injury is made with acute changes in cTn concentrations with at least one serial sample above the 99th percentile upper reference limit (URL), taken together with the patient's clinical presentation. Biotin has been reported to cause a negative bias, interpret results relative to patient's use of biotin. Lab Interpretation Normal (test code = 87245-8) [facility] [id number]-[id number] 08:41:05 Test Item Value Reference Range Interpretation Comments NT-proBNP (test code 40 pg/mL See_Comment [Autom ated = 3705531566) message] The system which generated this result transmitted reference range : <=125. The reference range was not used to interpret this result as normal/abnormal . MARIELA (test code = MARIELA) Biotin has been reported to cause a negative bias, interpret results relative to patient's use of biotin. Lab Interpretation Normal (test code = 38531-3) [facility]. METABOLIC PANEL (01202)2022-02-11 08:32:04 Test Item Value Reference Range Interpretation Comments NA (test code = 135 mmol/L 135-145 7864367352) K (test code = 3.7 mmol/L 3.5-5.0 4190652479) CL (test code = 100 mmol/L 98-108 9861276585) CO2 TOTAL (test code = 30 mmol/L 23-31 3885122899) AGAP (test code = 2-16 9352462067) BUN (test code = 5 mg/dL 7-23 L 6941337468) GLUCOSE (test code = 120 mg/dL 70-110 H 5750276046) CREATININE (test code = 0.54 mg/dL 0.50-1.04 1374615281) TOTAL BILI (test code = 0.6 mg/dL 0.1-1.7 5922134500) CALCIUM (test code = 9.4 mg/dL 8.6-10.6 8707418423) T PROTEIN (test code = 6.5 g/dL 6.3-8.2 2283935156) ALBUMIN (test code = 4.1 g/dL 3.5-5.0 5267551179) ALK PHOS (test code = 95 U/L 34-122 7667982003) ALTv (test code = 18 U/L 5-35 1742-6) AST(SGOT) (test code = 21 U/L 13-40 8133181694) eGFR (test code = mL/min/1.73m2 0861293597) MARIELA (test code = MARIELA) Association of Glomerular Filtration Rate (GFR) and Staging of Kidney Disease* + --+ --+ ------+| GFR (mL/min/1.73 m2) ?| With Kidney Damage ?| ?Without Kidney Damage+ --------+ --------+ +| ?>90 ?| ?Stage one ?| ? Normal ?+ ---+ ---+ -------+| ?60-89 ?| ?Stage two ?| ? Decreased GFR ? + --+ --+ ------+| ?30-59 ?| ?Stage three ?| ? Stage three ? + --+ --+ ------+| ?15-29 ?| ?Stage four ? | ? Stage four ?+ ---+ ---+ -------+| ?<15 (or dialysis) ? ?| ?Stage five ? | ? Stage five ?+ ---+ ---+ -------+ *Each stage assumes the associated GFR level has been in effect for at least three months. ?Stages 1 to 5, with or without kidney disease, indicate chronic kidney disease. Notes: Determination of stages one and two (with eGFR >59mL/min/1.73 m2) requires estimation of kidney damage for at least three months as defined by structural or functional abnormalities of the kidney, manifested by either:Pathological abnormalities or Markers of kidney damage (including abnormalities in the composition of the blood or urine or abnormalities in imaging tests). Lab Interpretation Abnormal (test code = 48376-9) [facility] WITH [id number] 07:44:31 Test Item Value Reference Range Interpretation Comments WBC (test code = See_Comment [Automated 9790-2) message] The sy stem which generated this result transmitted reference range : 4.30 - 11.10 10*3/?L. The reference range was not used to interpret this result as normal/abnormal . RBC (test code = See_Comment [Automated 439-8) message] The sy stem which generated this result transmitted reference range : 3.93 - 5.25 10*6/?L. The reference range was not used to interpret this result as normal/abnormal . HGB (test code = 11.0 g/dL 11.6-15.0 L 718-7) HCT (test code = 34.0 % 35.7-45.2 L 4544-3) MCV (test code = 75.6 fL 80.6-95.5 L 787-2) MCH (test code = 24.4 pg 25.9-32.8 L 785-6) MCHC (test code = 32.4 g/dL 31.6-35.1 786-4) RDW-SD (test code = 47.7 fL 39.0-49.9 25600-4) RDW-CV (test code = 17.4 % 12.0-15.5 H 788-0) PLT (test code = See_Comment [Automated 777-3) message] The sy stem which generated this result transmitted reference range : 166 - 358 10*3/ ?L. The reference r estefany was not used to interpret this result as normal/abnormal . MPV (test code = 10.4 fL 9.5-12.9 00987-9) NRBC/100 WBC (test See_Comment [Automat ed code = [id number]) message] The system which generated this result transmitted reference range : 0.0 - 10.0 /100 WBCs. The refer ence range was not u sed to interpret th is result as normal/abnormal . NRBC x10^3 (test code See_Comment [Auto mated = [id number]) message] The s ystem which generated this result transmitted reference range : 10*3/?L. The reference range was not used to interpret this result as normal/abnormal . GRAN MAT (NEUT) % 76.6 % (test code = 770-8) IMM GRAN % (test code 0.40 % = [id number]) LYMPH % (test code = 7.2 % 736-9) MONO % (test code = 11.3 % 5905-5) EOS % (test code = 4.3 % 713-8) BASO % (test code = 0.2 % 706-2) GRAN MAT x10^3(ANC) 7.56 10*3/uL 1.88-7.09 H (test code = 8844506160) IMM GRAN x10^3 (test 0.04 10*3/uL 0.00-0.06 code = 6125690330) LYMPH x10^3 (test code 0.71 10*3/uL 1.32-3.29 L = 731-0) MONO x10^3 (test code 1.11 10*3/uL 0.33-0.92 H = 742-7) EOS x10^3 (test code = 0.42 10*3/uL 0.03-0.39 H 711-2) BASO x10^3 (test code 0.01-0.07 = 704-7) Lab Interpretation Abnormal (test code = 39058-5) [id number] 07:22:00 Test Item Value Reference Range Interpretation Comments Report Text (test MARTY 2021-01-25 422 code = Report Text) Report Text7 (test BLOOD CULTURES HELD FOR code = Report 5 DAYS BEFORE FINAL Text7) Report Text8 (test code = Report Text8) Report Text9 (test [employer] OF code = Report MICROBIOLOGY SUGGESTS THAT Text9) Report Text10 (test MOST CASES OF BACTEREMIA code = Report ARE DETECTED BY USING Text10) Report Text11 (test THREE SETS OF SEPARATELY code = Report COLLECTED BLOOD CULTURES. Text11) Report Text12 (test [facility] 2021-01-25 423 code = Report Text12) Report Text13 (test CONVERSELY, A SINGLE BLOOD code = Report CULTURE MAY MISS Text13) Report Text14 (test INTERMITTENTLY OCCURRING code = Report BACTEREMIA AND MAKE Text14) Report Text15 (test IT DIFFICULT TO INTERPRET code = Report THE CLINICAL Text15) Report Text16 (test SIGNIFICANCE OF CERTAIN code = Report ISOLATED ORGANISMS. Text16) Report Text17 (test code = Report Text17) Report Text18 (test [facility] 2021-01-25 424 code = Report Text18) Report Text19 (test COLLECTION SITE code = Report UNSPECIFIED Text19) Report Text20 (test [facility] 2021-01-26 734 code = Report Text20) Report Text21 (test NO GROWTH WITHIN 1 DAY code = Report Text21) Report Text22 (test PRELIMINARY REPORT code = Report Text22) Report Text23 (test code = Report Text23) Report Text24 (test [facility] 2021-01-27 641 code = Report Text24) Report Text25 (test NO GROWTH WITHIN 2 DAYS code = Report Text25) Report Text26 (test PRELIMINARY REPORT code = Report Text26) Report Text27 (test code = Report Text27) Report Text28 (test [facility] 2021-01-30 722 code = Report Text28) Report Text29 (test NO GROWTH WITHIN 5 DAYS code = Report Text29) Report Text30 (test FINAL REPORT code = Report Text30) BLOOD [id number] 07:22:00 Test Item Value Reference Range Interpretation Comments Report Text (test [facility] 2021-01-25 421 code = Report Text) Report Text7 (test BLOOD CULTURES HELD FOR code = Report 5 DAYS BEFORE FINAL Text7) Report Text8 (test code = Report Text8) Report Text9 (test [employer] [employer] code = Report MICROBIOLOGY SUGGESTS THAT Text9) Report Text10 (test MOST CASES OF BACTEREMIA code = Report ARE DETECTED BY USING Text10) Report Text11 (test THREE SETS OF SEPARATELY code = Report COLLECTED BLOOD CULTURES. Text11) Report Text12 (test [facility] 2021-01-25 422 code = Report Text12) Report Text13 (test CONVERSELY, A SINGLE BLOOD code = Report CULTURE MAY MISS Text13) Report Text14 (test INTERMITTENTLY OCCURRING code = Report BACTEREMIA AND MAKE Text14) Report Text15 (test IT DIFFICULT TO INTERPRET code = Report THE CLINICAL Text15) Report Text16 (test SIGNIFICANCE OF CERTAIN code = Report ISOLATED ORGANISMS. Text16) Report Text17 (test code = Report Text17) Report Text18 (test [facility] 2021-01-25 423 code = Report Text18) Report Text19 (test COLLECTION SITE code = Report UNSPECIFIED Text19) Report Text20 (test [facility] 2021-01-26 734 code = Report Text20) Report Text21 (test NO GROWTH WITHIN 1 DAY code = Report Text21) Report Text22 (test PRELIMINARY REPORT code = Report Text22) Report Text23 (test code = Report Text23) Report Text24 (test STEFANIE 2021-01-27 641 code = Report Text24) Report Text25 (test NO GROWTH WITHIN 2 DAYS code = Report Text25) Report Text26 (test PRELIMINARY REPORT code = Report Text26) Report Text27 (test code = Report Text27) Report Text28 (test STEFANIE 2021-01-30 722 code = Report Text28) Report Text29 (test NO GROWTH WITHIN 5 DAYS code = Report Text29) Report Text30 (test FINAL REPORT code = Report Text30) [id number] 04:37:00 Test Item Value Reference Range Interpretation Comments WBC (test code = 8.4 K/UL 3.5-10.9 WBC) RBC (test code = 4.28 M/UL 4.0-5.0 RBC) HGB (test code = 11.0 G/DL 11.5-15.5 L HGB) HCT (test code = 35.0 % 34-46 HCT) MCV (test code = 81.8 FL 80-98 MCV) MCH (test code = 25.7 PG 28-32 L MCH) MCHC (test code = 31.4 G/DL 32.5-36.5 L MCHC) RDW (test code = 14.8 % 11.5-14.5 H RDW) PLT (test code = 310 K/UL 150-450 PLT) MPV (test code = 10.3 FL 7.4-10.4 MPV) MANDIFF (test code = NO MANDIFF) SCAN (test code = NO SCAN) NEUT% (test code = 53.4 % 40-75 NEUT%) LYMPH% (test code = 27.9 % 24-44 LYMPH%) MONO% (test code = 14.4 % 0-13 H MONO%) EOS% (test code = 3.7 % 0-4 EOS%) BASO % (test code = 0.2 % 0-2 BASO%) IG (test code = IG) 0 % 0-1 IG% (test code = 0.4 % 0-1 IG% = Metam yelocytes, IG%) Myelocytes, and Promyelocytes. (Immature neutr ophils not including " bands".) > 3% IG indic ates risk of sepsis NRBC% (test code = 0 /100 WBC NRBC%) ABS NEUT (test code 4.5 K/UL 1.2-7.2 = NEUT) BG LAB ARTERIAL [id number] 03:43:00 Test Item Value Reference Range Interpretation Comments SITE (test code = R-RAD See_Comment [Automate d message] The SITE) system which ge nerated this result tra nsmitted reference range : -SITE. The reference r estefany was not used to int erpret this result as normal/abnormal . ALLENS (test code = POS ALLENS) BGLAC (test code = 8 mg/dL 5.0-18.0 BGLAC) BLOOD GAS [id number] 03:30:00 Test Item Value Reference Range Interpretation Comments SITE (test code = R-RAD See_Comment [Automate d message] SITE) The system [employer] generated this result transmitted ref erence range: -SITE. T he reference range was not used to interpr et this result as normal/abnormal . ALLENS (test code = POS ALLENS) O2 EQUIP (test code NC O2-DEVICE = O2 EQUIP) FIO2 (test code = 32 % FIO2) PH (test code = 7.35 7.35-7.45 BGPH) PCO2 (test code = 49 MMHG 34.0-45.0 H PCO2) PO2 (test code = 182 MMHG 84-92 H PO2) HCO3 (test code = 27.1 mmol/L 22.0-26.0 H HCO3) BE (test code = BE) 0.9 mmol/L -2.0-2.0 THB (test code = 11.3 G/DL 12-16 L THB) % 02 HB (test code 96.7 % 96.0-100.0 = ABGSAT) %COHB (test code = 0.2 % See_Comment [Automat ed message] BGCO) The system [employer] generated this result transmitted ref erence range: -1.5. Th e reference range was not used to interpr et this result as normal/abnormal . % MET HB (test code 1.0 % 0.4-1.5 = %MET HB) CAO2 (test code = 15.8 VOL% 15.7-21.6 CAO2) PF/RATIO (test code 569.0 = PF/RATIO) INFLUENZA [id number] 03:28:00 Test Item Value Reference Range Interpretation Comments FLU A (test code = FLU A) NEGATIVE NEGATIVE FLU B (test code = FLU B) NEGATIVE NEGATIVE FLU INTERNAL POSITIVE CNTRL (test PASS PASS code = FLU IPC) INFLUENZA LOT # (test code = FLULOT) [id number] INFLUENZA EXPIRATION DATE (test code = FLUEXP) CHEST 1 VIEW [id number] 03:26:00 [facility] 1965 Sex: F[address] [id number] IMAGING RE PORTPatient Name: Karolina GABRIEL of Service: [id number]: 55 Sex: F Order #: [id number] [facility] 1965 X-[facility] Number: [id number] Record Number: [id number] Hospital Number: [id number] Physician: López FLORES Physician: MELISSA FLORESPROCEDURE: CHEST 1 VIEW PORTABLEINDICATIONS: Dx: copd, exacerbationpt sts: c/o shortness of breath onset x1hour , attempted breathing treatment and no changehx: copdpsv:lsr1 view chest x-ray.Comparison: NoneFindings:Lungs are clear without acute infiltrates.No pneumothorax. Heart size is normal.No acute bony abnormalities.Impression:No significant abnormalities.This document has been electronically signed by: Spencer Miles MD 01/25/2021 03:26:34Legally authenticated by JAMEL STONER 2021-01-25 02:53:00TROPONIN [id number] 03:15:00 Test Item Value Reference Range Interpretation Comments TROPER (test code = 0.00 NG/ML 0.0-0.08 INTE RPRETIVE TROPER) DATA A POC T ROPONIN OF </= 0.08 NG/ ML IS CONSIDERED NEGA TIVE ISTAT CHEM [id number] 03:10:00 Test Item Value Reference Range Interpretation Comments ISTATNA (test code = 143 MMOL/L 137-145 ISTATNA) ISTATK (test code = 3.5 MMOL/L 3.6-5.0 L ISTATK) ISTATCL (test code = 104 MMOL/L 98-107 ISTATCL) ISTIONCA (test code = 1.32 MMOL/L 1.12-1.32 ISTIONCA) ISTCO2 (test code = 29 MMOL/L 22-30 ISTCO2) ISTATGLU (test code = 189 MG/DL 65-110 H ISTATGLU) ISTATBUN (test code = 10.0 MG/DL 7.0-20.0 ISTATBUN) ISTCREA (test code = 0.7 MG/DL 0.7-1.5 ISTCREA) ISTATHCT (test code = 39 %PCV 37.0-52.0 ISTATHCT) ISTATHGB (test code = 13.3 G/DL 12.0-18.0 Notifi ed Nurse/MD of ISTATHGB) results outside of Reference Range s ISTANGAP (test code = 15 MMOL/L Notifi ed Nurse/MD of ISTANGAP) results outside of Reference Range s POCT GLUCOSE POC docked [id number] 20:49:00 Test Item Value Reference Range Interpretation Comments Glucose POC (test code = 88784275) 168 mg/dL 74-106 H Lab Interpretation (test code = Abnormal 91884-4) [facility] [id number] 20:49:00 Test Item Value Reference Range Interpretation Comments Glucose POC (test code = 65599133) 168 mg/dL 74-106 H Lab Interpretation (test code = Abnormal 62269-3) [facility] GLUCOSE POC docked [id number] 20:49:00 Test Item Value Reference Range Interpretation Comments Glucose POC (test code = 12304025) 168 mg/dL 74-106 H Lab Interpretation (test code = Abnormal 82379-0) [facility] GLUCOSE POC docked [id number] 20:49:00 Test Item Value Reference Range Interpretation Comments Glucose POC (test code = 02720238) 168 mg/dL 74-106 H Lab Interpretation (test code = Abnormal 55780-7) [facility] GLUCOSE POC docked [id number] 20:49:00 Test Item Value Reference Range Interpretation Comments Glucose POC (test code = 77292290) 168 mg/dL 74-106 H Lab Interpretation (test code = Abnormal 87447-1) [facility], [id number] 19:32:00 Test Item Value Reference Interpretation Comments Range COVID-19 Not Detected Not Detected The 2019 novel (SARS-COV-2) (test coronavir us code = 26323-3) (SARS-CoV-2) target nucleic acids are not detected. MARIELA (test code = COMMENT: The Cepheid MARIELA) Xpert Xpress SARS-CoV-2 real-time PCR test was developed and its performance characteristics have been determined by the [facility]. This test has not been cleared or approved by the FDA. This test system has been authorized by the FDA under an Emergency Use Authorization (EUA). This test has been validated in accordance with the FDA s Guidance document Policy for Diagnostic Tests for Coronavirus Disease-2019 during the Public Health Emergency issued on June 25, 2019 and is used for clinical purposes. It should not be regarded as investigational or for research. Detected results are indicative of active infection with SARS-CoV-2; clinical correlation with patient history and other diagnostic information is necessary to determine patient infection status. Not Detected results do not preclude SARS-CoV-2 infection and should not be used as the sole basis for treatment or other patient management decisions. Negative results must be combined with clinical observations, patient history, and epidemiological information. This laboratory is certified under the Clinical Laboratory Improvement Amendments (CLIA) as qualified to perform high complexity clinical laboratory testing. Lab Interpretation Normal (test code = 72350-3) [facility] Spanglerronavirus, CoVID-19, [id number] 19:32:00 Test Item Value Reference Interpretation Comments Range COVID-19 Not Detected Not Detected The 2018 novel (SARS-COV-2) (test coronavir us code = 14434-2) (SARS-CoV-2) target nucleic acids are not detected. MARIELA (test code = COMMENT: The YOGITECH MARIELA) Xpert Xpress SARS-CoV-2 real-time PCR test was developed and its performance characteristics have been determined by the [facility]. This test has not been cleared or approved by the FDA. This test system has been authorized by the FDA under an Emergency Use Authorization (EUA). This test has been validated in accordance with the FDA s Guidance document Policy for Diagnostic Tests for Coronavirus Disease-2019 during the Public Health Emergency issued on June 25, 2019 and is used for clinical purposes. It should not be regarded as investigational or for research. Detected results are indicative of active infection with SARS-CoV-2; clinical correlation with patient history and other diagnostic information is necessary to determine patient infection status. Not Detected results do not preclude SARS-CoV-2 infection and should not be used as the sole basis for treatment or other patient management decisions. Negative results must be combined with clinical observations, patient history, and epidemiological information. This laboratory is certified under the Clinical Laboratory Improvement Amendments (CLIA) as qualified to perform high complexity clinical laboratory testing. Lab Interpretation Normal (test code = 88859-0) Daniel Spanglerronavirus, CoVID-19, [id number] 19:32:00 Test Item Value Reference Interpretation Comments Range COVID-19 Not Detected Not Detected The 2019 novel (SARS-COV-2) (test coronavir us code = 36784-7) (SARS-CoV-2) target nucleic acids are not detected. MARIELA (test code = COMMENT: The YOGITECH MARIELA) Xpert Xpress SARS-CoV-2 real-time PCR test was developed and its performance characteristics have been determined by the [facility]. This test has not been cleared or approved by the FDA. This test system has been authorized by the FDA under an Emergency Use Authorization (EUA). This test has been validated in accordance with the FDA s Guidance document Policy for Diagnostic Tests for Coronavirus Disease-2019 during the Public Health Emergency issued on June 25, 2019 and is used for clinical purposes. It should not be regarded as investigational or for research. Detected results are indicative of active infection with SARS-CoV-2; clinical correlation with patient history and other diagnostic information is necessary to determine patient infection status. Not Detected results do not preclude SARS-CoV-2 infection and should not be used as the sole basis for treatment or other patient management decisions. Negative results must be combined with clinical observations, patient history, and epidemiological information. This laboratory is certified under the Clinical Laboratory Improvement Amendments (CLIA) as qualified to perform high complexity clinical laboratory testing. Lab Interpretation Normal (test code = 49271-5) [facility] Aníbalronavirus, CoVID-19, [id number] 19:32:00 Test Item Value Reference Interpretation Comments Range COVID-19 Not Detected Not Detected The 2019 novel (SARS-COV-2) (test coronavir us code = 50997-1) (SARS-CoV-2) target nucleic acids are not detected. MARIELA (test code = COMMENT: The YOGITECH MARIELA) Xpert Xpress SARS-CoV-2 real-time PCR test was developed and its performance characteristics have been determined by the [facility]. This test has not been cleared or approved by the FDA. This test system has been authorized by the FDA under an Emergency Use Authorization (EUA). This test has been validated in accordance with the FDA s Guidance document Policy for Diagnostic Tests for Coronavirus Disease-2019 during the Public Health Emergency issued on June 25, 2019 and is used for clinical purposes. It should not be regarded as investigational or for research. Detected results are indicative of active infection with SARS-CoV-2; clinical correlation with patient history and other diagnostic information is necessary to determine patient infection status. Not Detected results do not preclude SARS-CoV-2 infection and should not be used as the sole basis for treatment or other patient management decisions. Negative results must be combined with clinical observations, patient history, and epidemiological information. This laboratory is certified under the Clinical Laboratory Improvement Amendments (CLIA) as qualified to perform high complexity clinical laboratory testing. Lab Interpretation Normal (test code = 02378-1) [facility] HealthCoronavirus, CoVID-19, [id number] 19:32:00 Test Item Value Reference Interpretation Comments Range COVID-19 Not Detected Not Detected The 2019 novel (SARS-COV-2) (test coronavir us code = 67577-5) (SARS-CoV-2) target nucleic acids are not detected. MARIELA (test code = COMMENT: The YOGITECH MARIELA) Xpert Xpress SARS-CoV-2 real-time PCR test was developed and its performance characteristics have been determined by the [facility]. This test has not been cleared or approved by the FDA. This test system has been authorized by the FDA under an Emergency Use Authorization (EUA). This test has been validated in accordance with the FDA s Guidance document Policy for Diagnostic Tests for Coronavirus Disease-2019 during the Public Health Emergency issued on June 25, 2019 and is used for clinical purposes. It should not be regarded as investigational or for research. Detected results are indicative of active infection with SARS-CoV-2; clinical correlation with patient history and other diagnostic information is necessary to determine patient infection status. Not Detected results do not preclude SARS-CoV-2 infection and should not be used as the sole basis for treatment or other patient management decisions. Negative results must be combined with clinical observations, patient history, and epidemiological information. This laboratory is certified under the Clinical Laboratory Improvement Amendments (CLIA) as qualified to perform high complexity clinical laboratory testing. Lab Interpretation Normal (test code = 81951-1) [place] [address] LEAD [id number] 14:13:1112 LEAD EKG FOR [facility] Test Date: 1907-96-64Ctc Name: CABRERA GABRIEL Department: 6520Patient ID: [id number] Room: 2W73Mqjurn: F Iron Caster: : 1965 Requested By: ROBBIE Mobley Number: [id number] Miller MD: Mitali Morse MeasurementsIntervals [place] Rate: 85 P:86PR: 166 QRS: 84QRSD: 86 T: 81QT: 398 QTc: 440 Interpretive StatementsSINUS RHYTHMBaseline artifactOtherwise Normal EKGElectronically Signed On 10-09-2020 15:33:50 CDT by Mitali EkRyan [place] [address] LEAD [id number] 14:13:1112 LEAD EKG FOR [facility] Test Date: 9482-35-02Epu Name: CABRERA Escobedoartment: 6520Patient ID: [id number] Room: 7W74Rgjaoi: F Iron Caster: : 1965 Requested By: ROBBIE Mobley Number: [id number] Reading MD: Mitali Carltonerjimmy MeasurementsIntervals [place] Rate: 85 P: 86PR: 166 QRS: 84QRSD: 86 T: 81QT: 398 QTc: 440 Interpretive StatementsSINUS RHYTHMBaseline artifactOtherwise Normal EKGElectronically Signed On 10-09-2020 15:33:50 CDT by [facility]itali [facility] [id number] 14:13:1112 LEAD EKG FOR [facility] Test Date: 7307-74-32Csm Name: CABRERA BALLARDCHRISTOPHERmikeartment: 6520Patient ID: [id number] Room: 8Q07Hupdbl: F Iron Caster: : 1965 Requested By: ROBBIE Mobley Number: [id number] Reading MD: Mitali Morse MeasurementsIntervals [place] Rate: 85 P:86PR: 166 QRS: 84QRSD: 86 T: 81QT: 398 QTc: 440 Interpretive StatementsSINUS RHYTHMBaseline artifactOtherwise Normal EKGElectronically Signed On 10-09-2020 15:33:50 CDT by Mitali [facility] [id number] 14:13:1112 LEAD EKG FOR [facility] Test Date: 8836-84-63Gny Name: CABRERA BALLARDEDepartment: 6520Patient ID: [id number] Room: 2A32Znftld: F Iron Caster: : 1965 Requested By: ROBBIE Mobley Number: [id number] Reading MD: Mitali Ekerjimmy MeasurementsIntervals [place] Rate: 85 P:86PR: 166 QRS: 84QRSD: 86 T: 81QT: 398 QTc: 440 Interpretive StatementsSINUS RHYTHMBaseline artifactOtherwise Normal EKGElectronically Signed On 10-09-2020 15:33:50 CDT by MitaliViralizeCass Medical CenterAdXpose12 LEAD [id number] 14:13:1112 LEAD EKG FOR [facility] Test Date: 3567-73-41Uyb Name: CABRERA BALLARDEDepartment: 6520Patient ID: [id number] Room: 3C16Scwaie: F Iron Caster: : 1965 Requested By:ROBBIE Mobley Number: [id number] Reading MD: Mitali Ekerjimmy MeasurementsIntervals [place] Rate: 85 P:86PR: 166 QRS: 84QRSD: 86 T: 81QT: 398 QTc: 440 Interpretive StatementsSINUS RHYTHMBaseline artifactOtherwise Normal EKGElectronically Signed On 10-09-2020 15:33:50 CDT by Mitali LorenArt Craft EntertainmentCass Medical CenterAdXpose12 LEAD [id number] 14:13:0312 LEAD EKG FOR [facility] Test Date: 7414-67-61Ivq Name: CABRERA KOCHepartment: 6520Patient ID: [id number] Room: GOLD POD SGender: F Iron Caster: : 1965 Requested By: ROBBIE Mobley Number: [id number] Reading MD: Mitali Morse MeasurementsIntervals [place] Rate:86 P: 87PR: 164 QRS: 84QRSD: 78 T: 63QT: 382 QTc: [address] & T-WAVE ABNORMALITYBaseline artifactAbnormal EKGElectronically Signed On 10-09-2020 15:34:03 CDT by Mitali EkArt Craft EntertainmentCass Medical CenterAdXpose12 LEAD [id number] 14:13:0312 LEAD EKG FOR [facility] Test Date: 3014-30-28Xiz Name: CABRERA KOCHepartment: 6520Patient ID: [id number] Room: GOLD POD SGender: F Iron Caster: : 1965 Requested By: ROBBIE Mobley Number: [id number] Reading MD: Mitali Ekerjimmy MeasurementsIntervals [place] Rate: 86 P: 87PR: 164 QRS: 84QRSD: 78 T: 63QT: 382 QTc: [address] & T-WAVE ABNORMALITYBaseline artifactAbnormal EKGElectronically Signed On 10-09-2020 15:34:03CDT by MitaliViralizeCOX WALNUT LAWNOneWed (Formerly Nearlyweds)12 LEAD [id number] 14:13:0312 LEAD EKG FOR [place] [facility] Test Date: [id number] Name: CABRERA GUTIERREZJASMINepartment: 6520Patient ID: [id number] Room: [facility] POD SGender: F Iron Caster: : 1965 Requested By: ROBBIE Mobley Number: [id number] Reading MD: Mitali Morse MeasurementsIntervals [place] Rate: 86 P: 87PR: 164 QRS: 84QRSD: 78 T: 63QT: 382 QTc: [address] & T-WAVE ABNORMALITYBaseline artifactAbnormal EKGElectronically Signed On 10-09-2020 15:34:03 CDT by [email or web address] (Former[employer])12 LEAD [id number] 14:13:0312 [facility] Test Date: [id number] Name: CABRERA GABRIEL Irineo epartment: 6520Patient ID: [id number] Room: [facility] POD SGender: F Iron Caster: : 1965 Requested By: ROBBIE Mobley Number: [id number] Reading MD: Mitali Morse MeasurementsIntervals [place] Rate: 86 P: 87PR: 164 QRS: 84QRSD: 78 T: 63QT: 382 QTc: 425 [address] & T- WAVE ABNORMALITYBaseline artifactAbnormal EKGElectronically Signed On 10-09-2020 15:34:03 CDT by [email or web address] (Former[employer])12 LEAD [id number] 14:13:0312 LEAD EKG FOR P [facility] Test Date: [id number] Name: CABRERA GABRIEL Department: 6520Patient ID: [id number] Room: [facility] SGender: F Iron Caster: : 1965 RequestedBy: ROBBIE Mobley Number: [id number] Reading MD: Mitali Ekerjimmy MeasurementsIntervals [place] Rate: 86 P: 87PR: 164 QRS: 84QRSD: 78 T: 63QT: 382 QTc: 425 [address] & T-WAVE ABNORMALITYBaseline artifactAbnormal EKGElectronically Signed On 10-09-2020 15:34:03 CDT by [employer] SystemsCOX WALNUT LAWNOneWed (Formerly [employer])12 Lead [id number] 10:11:1812 LEAD EKG FOR P [facility] Test Date: [id number] Name: CABRERA KOCHepartment: 6520Patient ID: [id number] Room: 3O42Ocgces: F Iron Caster: [id number]: 1965 Requested By: ROBBIE Mobley Number: [id number] Reading MD: Mitali Ekerjimmy MeasurementsIntervals [place] Rate: 86 P: 83PR: 166 QRS: 82QRSD: 88 T: 71QT: 388 QTc: 431 Interpretive StatementsSINUS RHYTHMNormal EKGElectronically Signed On 10-09-2020 15:39:57 CDT by Mitali Moov cc.erArt Craft EntertainmentCass Medical CenterAdXpose12 Lead [id number] 10:11:1812 LEAD EKG FOR [facility] Test Date: [id number] Name: CABRERA GABRIEL Department: 6520Patient ID: [id number] Room: 6V07Mokfvu: F Iron Caster: [id number]: 1965 RequestedBy: ROBBIE Mobley Number: [id number] Reading MD: Mitali Ekeruo MeasurementsIntervals [place] Rate: 86 P: 83PR: 166 QRS: 82QRSD: 88 T: 71QT: 388 QTc: 431 Interpretive StatementsSINUS RHYTHMNormal EKGElectronically Signed On 10-09-2020 15:39:57 CDT by Mitali EkWarren State HospitalTargAnox Ztkcwh48 Lead [id number] 10:11:1812 LEAD EKG FOR [facility] Test Date: [id number] Name: CABRERA BALLARDepartment: 6520Patient ID: [id number] Room: 7D93Kjrwmh: F Iron Caster: [id number]: 1965 Requested By: ROBBIE Mobley Number: [id number] Reading MD: Mitali Morse MeasurementsIntervals [place] Rate: 86 P: 83PR: 166 QRS: 82QRSD: 88 T: 71QT: 388 QTc: 431 Interpretive StatementsSINUS RHYTHMNormal EK GElectronically Signed On 10-09-2020 15:39:57 CDT by [facility] Moov cc.Art Craft EntertainmentCass Medical CenterAdXpose 12 Lead [id number] 10:11:1812 [facility] Test Date: [id number] Name: CABRERA BALLARDepartment: 6520Patient ID: [id number] Room: 6D72Fummdi: F Iron Caster: [id number]: 1965 Requested By: ROBBIE Mobley Number: [id number] Reading MD: Mitali Ekerjimmy MeasurementsIntervals [place] Rate:86 P: 83PR: 166 QRS: 82QRSD: 88 T: 71QT: 388 QTc: 431 Interpretive StatementsSINUS RHYTHMNormal EKGElectronically Signed On 10-09-2020 15:39:57 CDT by [facility] Moov cc.[facility] State HospitalAdXpose12 Lead [id number] 10:11:1812 LEAD EKG FOR [facility] Test Date: [id number] Name: CABRERA GABRIEL Department: 6520Patient ID: [id number] Room: 4Z55Ftuoac: F Iron Caster: [id number]: 1965 Requested By: ROBBIE Mobley Number: [id number] Reading MD: Mitali Morse MeasurementsIntervals [place] Rate:86 P: 83PR: 166 QRS: 82QRSD: 88 T: 71QT: 388 QTc: 431 Interpretive StatementsSINUS RHYTHMNormal EKGElectronically Signed On 10-09-2020 15:39:57 CDT by Mitali [facility]
--- NOTE | 2022-05-16 14:59 | EDPHYS ---
Physician Documentation [facility] Name: Bran Burgos Age: 57 yrs Sex: Female : 1965 Arrival Date: 05/16/2022 Time: 14:20 Bed 14 Private MD: ED Physician Historical: - Allergies: 05/16 14:32 No Known Allergies; ld1 - PMHx: 14:32 Asthma; COPD; ld1 - Immunization history:: Adult Immunizations up to date, Client reports receiving the 2nd dose of the Covid vaccine. - Social history:: Smoking status: Patient denies any tobacco usage or history of. Patient/guardian denies using alcohol. Vital Signs: 14:27 BP 116 / 72; Pulse 89; Resp 18; Temp 97.9(O); Pulse Ox 97% on 3 lpm NC; Weight 50.8 kg; ld1 Height 5 ft. 2 in. (157.48 cm); Pain 0/10; 14:27 Body Mass Index 20.48 (50.80 kg, 157.48 cm) ld1 MDM: 05/16 14:21 Order name: Cardiac monitoring; Complete Time: 14:27 ld1 05/16 14:21 Order name: IV Saline Lock; Complete Time: 14:58 ld1 05/16 14:21 Order name: O2 Per Protocol; Complete Time: 14:27 ld1 05/16 14:21 Order name: O2 Sat Monitoring; Complete Time: 14:27 ld1 Administered Medications: No medications were administered Disposition Summary: 05/16/22 14:58 Left Against Medical Advice Location: Home bp Condition: Stable bp Signatures: Dispatcher [employer] EDMS Marvel Troncoso PA PA Mukul An, RN RN bp Karen Jovel, SO RN ld1 Corrections: (The following items were deleted from the chart) 14:57 14:54 Patient medically screened. evlia gan 14:58 14:21 EKG - Nurse/Tech ordered. ld1 bp 14:58 14:21 Labs collected and sent ordered. ld1 bp
--- NOTE | 2022-05-16 14:59 | ER ---
Nurse's Notes [facility] Name: Brna Burgos Age: 57 yrs Sex: Female : 1965 Arrival Date: 05/16/2022 Time: 14:20 Bed 14 Private MD: Diagnosis: Presentation: 05/16 14:27 Chief complaint: EMS states: toned out to [facility] for SOB. Pt reports concentrator running ld1 out while at [facility]. EMS reports 87% on room air upon arrival - placing patient on 3L NC - increased SpO2 96%. Coronavirus screen: At this time, the client does not indicate any symptoms associated with coronavirus-19. Ebola Screen: No symptoms or risks identified at this time. Initial Sepsis Screen: Does the patient meet any 2 criteria? No. Patient's initial sepsis screen is negative. Does the patient have a suspected source of infection? No. Patient's initial sepsis screen is negative. Risk Assessment: Do you want to hurt yourself or someone else? Patient reports no desire to harm self or others. Onset of symptoms was May 16, 2022 at 14:32. 14:27 Method Of Arrival: EMS: [facility] ld1 14:27 Acuity: RAN 3 ld1 Triage Assessment: 14:32 General: Appears in no apparent distress. comfortable, Behavior is calm, cooperative, ld1 appropriate for age. Pain: Denies pain. EENT: No signs and/or symptoms were reported regarding the EENT system. Neuro: Level of Consciousness is awake, alert, obeys commands, Oriented to person, place, time, situation. Cardiovascular: Capillary refill < 3 seconds Patient's skin is warm and dry. Respiratory: Reports shortness of breath Airway is patent Respiratory effort is even, unlabored, Onset: The symptoms/episode began/occurred just prior to arrival, the patient has mild shortness of breath. GI: Abdomen is flat, non-distended. : No signs and/or symptoms were reported regarding the genitourinary system. Derm: No signs and/or symptoms reported regarding the dermatologic system. Musculoskeletal: No signs and/or symptoms reported regarding the musculoskeletal system. Historical: - Allergies: 14:32 No Known Allergies; ld1 - PMHx: 14:32 Asthma; COPD; ld1 - Immunization history:: Adult Immunizations up to date, Client reports receiving the 2nd dose of the Covid vaccine. - Social history:: Smoking status: Patient denies any tobacco usage or history of. Patient/guardian denies using alcohol. Assessment: 14:56 Reassessment: PT LEFT AMA. REFUSED TO SPEAK WITH PHYSICIAN OR REMAIN FOR FURTHER bp TREATMENT. Vital Signs: 14:27 BP 116 / 72; Pulse 89; Resp 18; Temp 97.9(O); Pulse Ox 97% on 3 lpm NC; Weight 50.8 kg; ld1 Height 5 ft. 2 in. (157.48 cm); Pain 0/10; 14:27 Body Mass Index 20.48 (50.80 kg, 157.48 cm) ld1 ED Course: 14:20 Patient arrived in ED. ld1 14:26 Mukul Blandon, RN is Primary Nurse. bp 14:32 Triage completed. ld1 14:32 Arm band placed on right wrist. ld1 14:54 Marvel Troncoso PA is PHCP. [facility] 14:54 Gilbert Srinivasan MD is Attending Physician. [facility] 14:57 No provider procedures requiring assistance completed. IV discontinued, intact, bp bleeding controlled, No redness/swelling at site. Pressure dressing applied. Administered Medications: No medications were administered Outcome: 14:57 AMA AMA form signed bp 14:58 Patient left the ED. bp Signatures: Marvel Troncoso PA PA Mukul Hanson, RN RN bp Karen Jovel RN RN ld1
[2022-05-16 15:19] VITALS: BP 116/72; TEMP 97.9; O2SAT 97
== END 2022-05-16 14:58 | disposition left against medical advice (07) ==
LOC: ER 14:19
DX: R06.02 Shortness of breath (principal); J44.9 Chronic obstructive pulmonary disease, unspecified
CPT/HCPCS: 99282